=== PATIENT | female | born 1965 | race African-American/Black ===

== ENCOUNTER 2018-09-08 17:37 | Inpatient (IN) | payer OTHER ==
[2018-09-08 18:54] LABS: #Monocytes 0.8 thou/uL (0.11-0.59); #Neutrophils 6.1 thou/uL (1.40-6.50); %Basophils 0.5 % (0.0-1.0); %Eosinophils 0.5 % (0.0-10.0); %Lymphocytes 12.3 % (21.0-51.0); %Monocytes 10.4 % (0.0-10.0); %Neutrophils 76.2 % (42.0-75.0); Hemoglobin 11.9 g/dL (12.0-16.0); Mean Corpuscular HGB CONC 29.8 g/dL (32.0-36.0); Mean Corpuscular Hemoglobin 23.4 pg (27.0-31.0); Mean Corpuscular Volume 78.4 fL (78.0-98.0); Platelet Count 272 thou/uL (130-400); RBC Distribution Width 15.5 % (11.5-14.5); Red Blood Cell (RBC) Count 5.08 mill/uL (4.20-5.40)
[2018-09-08 18:56] LABS: Anisocytosis SLIGHT = 6-15 cells (100X) (0-5/hpf); MDiff Complete? YES; PLT Morphology Comment Appears Adequate; Polychromasia SLIGHT = 2-3 cells (100X) (0-2/hpf)
[2018-09-08 18:59] LABS: ALT (SGPT) 21 U/L (8-55); AST (SGOT) 21 U/L (5-34); Alkaline Phosphatase 83 U/L (40-150); Anion Gap 14 mmol/L (10-20); BUN (Urea Nitrogen) 14 mg/dL (9.8-20.1); Bilirubin, Total 0.8 mg/dL (0.2-1.2); CK (CPK) 278 U/L (29-168); Calc. Creatinine Clearance 0 mL/min (70-130); Calcium 9.3 mg/dL (7.8-10.44); Carbon Dioxide 24 mmol/L (22-29); Chloride 102 mmol/L (98-107); Estimated GFR-MDRD 63; Globulin 4.1 g/dL (2.4-3.5); Glucose 173 mg/dL (70-105); Potassium 3.8 mmol/L (3.5-5.1); Protein, Total 8.1 g/dL (6.0-8.3); Sodium 136 mmol/L (136-145)
--- NOTE | 2018-09-08 19:18 | RAD ---
PORTABLE CHEST 09/08/18 PROVIDED CLINICAL HISTORY: Cough. FINDINGS: Comparison 12/05/16. The cardiac silhouette remains markedly enlarged. The lungs appear clear. No pleural fluid or pneumot horax apparent. IMPRESSION: Marked cardiomegaly without evidence for an acute cardiopulmonary process. POS: [facility]
[2018-09-08 19:23] LABS: CKMB 3.6 ng/mL (0-6.6)
[2018-09-08] MEDS ORDERED: Nitroglycerin 0.4 MG TAB (25 Tab Bottle) ONE (19:29)
[2018-09-08] MEDS ORDERED: Nitroglycerin 2% Ointment 1 INCH/1 GM Packet ONE (19:29)
[2018-09-08] MEDS ORDERED: Enoxaparin Sodium 100 MG/ML SYRINGE ONE ×2 (20:10→20:12)
[2018-09-08 21:32] LABS: Troponin I 0.752 ng/mL (< 0.028)
[2018-09-09] MEDS ORDERED: HumaLOG 300 UNITS/3 ML VIAL SC PRN (00:26)
[2018-09-09] MEDS ORDERED: Dextrose 5% in Water 1,000 ML IV PRN (00:26)
[2018-09-09] MEDS ORDERED: Dextrose 50% Abboject 50 ML SYRINGE SLOW IVP PRN (00:26)
[2018-09-09 00:58] LABS: Troponin I 0.845 ng/mL (< 0.028)
[2018-09-09 03:45] VITALS: BMI 37.0
--- NOTE | 2018-09-09 04:16 | HP ---
CHIEF COMPLAINT: Cough. Date of encounter: 09/08/2018 HISTORY OF PRESENT ILLNESS: This patient is a 53-year-old female, who presented to the emergency department with cough. The patient reports the cough has been present for 1 week, and today for the 1st time she started experiencing some hot and cold flashes, she believes were fever and chills. She reports the cough has been productive of a thick yellow sputum. It subsequently has transformed more to a frothy white type sputum. She coughed one point so hard that she developed some epistaxis a couple of days ago. She denies any ill contacts. She does get short of breath with the cough. She has no sinus or other upper respiratory symptoms. She does admit that she has the inability to lie flat because she develops pressure in her chest. She is a bit more comfortable when she lies on her left side. REVIEW OF SYSTEMS: GENERAL: Some subjective fever and chills. She has had difficulty with sleeping and orthopnea. No significant changes in her weight. ENT: No hearing, vision, taste, or smell changes. GI: No difficulties with swallowing, constipation, diarrhea. CARDIOVASCULAR: The chest pain that she gets with orthopnea. No palpitations or peripheral edema. PULMONARY: Positive for cough, shortness of breath, and some wheezing. : No dysuria, frequency, or nocturia. She did have a little stress incontinence with cough today. SKIN: No rashes or lesions. NEUROLOGIC: No numbness, weakness, or tingling. PSYCHIATRIC: Some mild chronic anxiety and depression. ENDOCRINE: No polyuria or polydipsia. All other systems were reviewed and all pertinent positives and negatives noted in the HPI. PAST MEDICAL HISTORY: Hypertension, diabetes, hyperlipidemia, coronary artery disease, LV dysfunction, most recently evaluated in November 2016 with an EF of 40% . Anxiety and depression. PAST SURGICAL HISTORY: The patient has had prior coronary artery stenting and subsequent in-stent stenosis. Past surgical history also includes . FAMILY HISTORY: Notable for diabetes and hypertension within the family. SOCIAL HISTORY: Nonsmoker, nondrinker, nondrug user. She is . She is full code. Her or her sister would be her surrogate decision makers. ALLERGIES: NONE. CURRENT MEDICATIONS: 1. Seroquel 50 mg at bedtime. 2. Lexapro 20 mg daily. 3. Lisinopril 10 mg daily. 4. Mirtazapine 15 mg at bedtime. 5. Metoprolol 100 mg b.i.d. 6. Metformin 500 mg twice a day. 7. Atorvastatin 40 mg at bedtime. 8. Aspirin 81 mg daily. PHYSICAL EXAMINATION: VITAL SIGNS: Most recent vitals; BP 184/94, pulse 72, respirations 24, O2 saturation 97% on room air. BP has been recorded as high as 266/131 in the emergency department here. GENERAL APPEARANCE: Obese, age-appropriate female. She is in no distress. She is awake, alert, oriented, pleasant, and cooperative. HEENT: PERRL. No OP lesions. NECK: Supple. Symmetric. No lymphadenopathy, JVD, or carotid bruits. HEART: Regular rate and rhythm without murmurs, gallops, or rubs. LUNGS: Clear to auscultation bilaterally. Good chest wall expansion and air exchange. Presently, no wheezes or rales noted. ABDOMEN: Soft, nontender, and nondistended. Positive bowel sounds. No masses. No organomegaly. EXTREMITIES: Warm and dry without any evidence of edema. NEUROLOGIC: The patient appears to be grossly intact with spontaneous movement of all extremities. PSYCHIATRIC: The patient has normal affect and behavior. LABORATORY DATA: White count 8.0, hemoglobin 11.9, platelets 272. Sodium 136, potassium 3.8, chloride 102, CO2 of 24, BUN 14, creatinine 1.1, glucose 173. Lactic acid 1.2. AST is 21, ALT 21, CK 278, troponin 0.96. BNP 1634.3. Flu screen negative. Chest x-ray shows significant cardiomegaly, which by my evaluation appears to be advanced and appreciably worse than her previous x-ray in November of 2016. IMPRESSION AND PLAN: 1. Cough. The patient appears to likely have bronchitis. She has received Levaquin in the emergency department. I will continue being aggressive in treating that given her other underlying comorbidities, especially her cardiac history. 2. Elevated troponins. This likely represents type 2 demand ischemia. However, difficult to ascertain in this patient. She was here in November with some atypical chest pains, and at that time, her troponin was 0.1 range and clearly more elevated now. Concern that her chest x-ray at least shows what appears to be advanced cardiomegaly. We will pursue that as well. The patient has not had any chest pain symptoms other than some discomfort with associated orthopnea. We will not aggressively anticoagulate the patient in the setting of this scenario. 3. Cardiomyopathy. The patient has a history of some LV dysfunction with EF of 40%. She has apparent enlargement of her cardiac silhouette which is appreciably advanced from November of 2016. We will repeat the echocardiogram. The patient does not have significant pulmonary edema on her chest x-ray, although she does have some white frothy sputum production, and her BNP is elevated at 1634, which is substantially higher than it has been in the past. In November of last year, it was 322.7. We will repeat the echo and get Cardiology to evaluate the patient for this as well. 4. Hypertension. The patient had severely elevated blood pressure in the emergency department today. Again, that appears to be incidental to her actual presenting complaint of cough. She did receive 20 mg of IV labetalol in the emergency department and her blood pressure has somewhat improved. We will get her back on her usual medicines and continue to monitor and give p.r.n. to be used if it continues to climb again. The patient also has nitro paste on as well. 5. Diabetes mellitus. We will keep her on the metformin. Continue Accu-Cheks and sliding scale. 6. Hyperlipidemia. Continue with her usual home statin. 7. Anxiety and depression. Continue her usual Lexapro, citalopram, and mirtazapine. 8. History of coronary artery disease. Continue with the beta clarita and aspirin. Job ID: [id number] MTDD
[2018-09-09] MEDS: hydrALAZINE 20 MG/ML VIAL SLOW IVP PRN ×2 (05:24→06:33)
[2018-09-09 06:35] LABS: Anion Gap 13 mmol/L (10-20); BUN (Urea Nitrogen) 14 mg/dL (9.8-20.1); Calc. Creatinine Clearance 102 mL/min (70-130); Calcium 9.3 mg/dL (7.8-10.44); Carbon Dioxide 26 mmol/L (22-29); Chloride 101 mmol/L (98-107); Estimated GFR-MDRD 62; Glucose 159 mg/dL (70-105); Potassium 3.9 mmol/L (3.5-5.1); Sodium 136 mmol/L (136-145)
[2018-09-09 07:26] LABS: Band 7 % (5-11); Hypochromia SLIGHT = 6-15 cells (100X) (0-5/hpf); Lymphocytes 11 % (21-51); MDiff Complete? YES; Mean Corpuscular Volume 77.6 fL (78.0-98.0); Mean Platelet Volume 8.9 fL (7.4-10.4); Microcytosis SLIGHT = 6-15 cells (100X) (0-5/hpf); Monocytes 15 % (0-10); Neutrophil 67 % (42-75); PLT Morphology Comment Appears Adequate; Platelet Count 234 thou/uL (130-400); Polychromasia SLIGHT = 2-3 cells (100X) (0-2/hpf); RBC Distribution Width 15.3 % (11.5-14.5); Red Blood Cell (RBC) Count 4.57 mill/uL (4.20-5.40); White Blood Cell (WBC) Count 6.4 thou/uL (4.8-10.8)
[2018-09-09] MEDS: Escitalopram Oxalate 20 mg Tablet PO SCH (07:58)
[2018-09-09] MEDS ORDERED: metFORMIN 500 MG TAB PO SCH (08:00)
[2018-09-09] MEDS ORDERED: cloNIDine 0.1 MG TAB PO PRN (08:22)
[2018-09-09] MEDS ORDERED: NIFEdipine XL 30 MG TAB PO SCH (08:30)
[2018-09-09] MEDS ORDERED: Enoxaparin Sodium 120 MG/0.8 ML SYRINGE SC SCH (09:00)
[2018-09-09] MEDS ORDERED: Nitroglycerin 2% Ointment 1 INCH/1 GM Packet TOP SCH (09:00)
[2018-09-09] MEDS ORDERED: Metoprolol Tartrate 100 MG TAB PO SCH (09:00)
[2018-09-09] MEDS ORDERED: Lisinopril 10 MG TAB PO SCH (09:00)
[2018-09-09] MEDS ORDERED: Aspirin 325 mg Enteric Coated Tablet PO SCH (09:00)
[2018-09-09] MEDS ORDERED: Nitroglycerin 2% Ointment 1 INCH/1 GM Packet TOP PRN (10:52)
[2018-09-09] MEDS: Aspirin 81 mg Enteric Coated Tablet PO SCH (12:07)
[2018-09-09] MEDS ORDERED: Furosemide 20 MG/2 ML VIAL SLOW IVP SCH (18:30)
[2018-09-09] MEDS ORDERED: Carvedilol 25 MG TAB PO SCH (18:30)
[2018-09-09] MEDS ORDERED: Potassium Chloride 20 MEQ TAB PO SCH (18:30)
[2018-09-09] MEDS ORDERED: Sodium Chloride 0.9% 10 ML ONE (18:57)
[2018-09-09] MEDS: Lisinopril 10 MG TAB PO SCH (20:46)
[2018-09-09] MEDS: Mirtazapine 15 MG Soltab PO SCH ×2 (20:46→20:49)
[2018-09-09] MEDS: Atorvastatin Calcium 40 MG TAB PO SCH (20:46)
--- NOTE | 2018-09-09 21:38 | PDOC.PN ---
- Subjective Encounter Start Date: 09/09/18 Encounter Start Time: 11:30 Patient seen and examined for HTN crisis. No CP. SOB improving. No new complaints. No overnight events - Objective Resuscitation Status - Order Detail: 09/09/18 00:18 Resuscitation Status Routine Resuscitation Status: FULL: Full Resuscitation Discussed with: Patient RAMYA Reviewed: Yes Vital Signs & Weight: Vital Signs (12 hours) Temp Pulse Resp BP BP Pulse Ox 09/09/18 20:46 131/67 09/09/18 19:03 64 165/84 H 09/09/18 16:25 99.2 F 63 20 145/69 H 97 09/09/18 13:45 62 175/79 H 09/09/18 12:35 180/92 H 09/09/18 12:05 183/111 H 09/09/18 12:01 99.0 F 66 20 183/111 H 100 09/09/18 10:00 150/70 H Weight Weight 243 lb 8 oz I&O: 09/08/18 09/09/18 09/10/18 06:59 06:59 06:59 Intake Total 480 Output Total 1700 Balance -1220 Result Diagrams: 09/10/18 05:11 09/10/18 05:11 Additional Labs: Accuchecks 09/09/18 09/09/18 09/09/18 16:50 11:34 06:02 POC Glucose 160 H 213 H 156 H EKG Reviewed by me: Yes (Tele SR) Phys Exam - Physical Examination Constitutional: NAD Respiratory: no wheezing, no rhonchi bibasilar rales Cardiovascular: RRR, no rub Gastrointestinal: soft, non-tender, positive bowel sounds Neurological: non-focal, moves all 4 limbs Psychiatric: A&O x 3 Dx/Plan (1) Acute on chronic systolic ACC/AHA stage C congestive heart failure Code(s): I50.23 - ACUTE ON CHRONIC SYSTOLIC (CONGESTIVE) HEART FAILURE Status : Acute (2) Acute bronchitis Code(s): J20.9 - ACUTE BRONCHITIS, UNSPECIFIED Status: Acute (3) Hypertensive crisis Code(s): I16.9 - HYPERTENSIVE CRISIS, UNSPECIFIED Status: Acute (4) Coronary artery disease Code(s): I25.10 - ATHSCL HEART DISEASE OF [place] CORONARY ARTERY W/O ANG PCTRS Status: Chronic (5) Dyslipidemia Code(s): E78.5 - HYPERLIPIDEMIA, UNSPECIFIED Status: Chronic (6) Obesity (BMI 30-39.9) Code(s): E66.9 - OBESITY, UNSPECIFIED Status: Chronic (7) Elevated troponin Code(s): R74.8 - ABNORMAL LEVELS OF OTHER SERUM ENZYMES Status: Acute Comment: due to demand ischemia (8) Depression Code(s): F32.9 - MAJOR DEPRESSIVE DISORDER, SINGLE EPISODE, UNSPECIFIED Status : Chronic (9) DM2 (diabetes mellitus, type 2) Status: Chronic Qualifiers: Chronic kidney disease stage: stage 2 (mild) - Plan continue antibiotics, respiratory therapy, DVT proph w/SCDs * Await Cardio input * Add Procardia XL * Cont Lisinopril * AM labs * Cont other meds as below * Await Echo Review of Systems - Review of Systems Constitutional: negative: fever, chills, sweats, weakness, malaise, other Gastrointestinal: negative: Nausea, Vomiting, Abdominal Pain, Diarrhea, Constipation, Melena, Hematochezia, Other - Medications/Allergies Allergies/Adverse Reactions: Allergies Allergy/AdvReac Type Severity Reaction Status Date / Time No Known Allergies Allergy Verified 12/01/16 02:12 Medications: Current Medications Albuterol/Ipratropium (Duoneb) 3 ml NEB Q4H PRN PRN Reason: SOB &/or Wheezing Aspirin (Ecotrin) 81 mg PO DAILY [facility] Last Admin: 09/09/18 12:07 Dose: 81 mg Atorvastatin Calcium (Lipitor) 40 mg PO HS [facility] Last Admin: 09/09/18 20:46 Dose: 40 mg Carvedilol (Coreg) 25 mg PO BID-[facility] Clonidine (Catapres) 0.1 mg PO Q4H PRN PRN Reason: Systolic BP > 180/ DBP >100 Last Admin: 09/09/18 12:05 Dose: 0.1 mg Dextrose/Water (Dextrose 50%) 25 gm SLOW IVP PRN PRN PRN Reason: Hypoglycemia Enoxaparin Sodium (Lovenox) 40 mg SC 0900 [facility] Escitalopram Oxalate (Lexapro) 20 mg PO DAILY [facility] Last Admin: 09/09/18 07:58 Dose: 20 mg Glucagon (Glucagon) 1 mg IM PRN PRN PRN Reason: Hypoglycemia Hydralazine HCl (Apresoline) 10 mg SLOW IVP Q4H PRN PRN Reason: Hypertension Last Admin: 09/09/18 06:33 Dose: 10 mg Levofloxacin 500 mg/ Device 100 mls @ 100 mls/hr IVPB Q24HR [facility] Last Admin: 09/09/18 20:10 Dose: 100 mls Dextrose/Water (D5w) 1,000 mls @ 0 mls/hr IV .Q0M PRN PRN Reason: Hypoglycemia Insulin Human Lispro (Humalog) 0 units SC .MILD SLIDING SCALE PRN PRN Reason: Mild Correctional Scale Lisinopril (Zestril) 10 mg PO BID [facility] Last Admin: 09/09/18 20:46 Dose: 10 mg Mirtazapine (Remeron Soltab) 15 mg PO [facility] Last Admin: 09/09/18 20:49 Dose: Not Given Nitroglycerin (Nitro-Bid 2% Ointment) 0.5 inch TOP Q8HR PRN PRN Reason: SBP Greater Than 180 Quetiapine Fumarate (Seroquel) 50 mg PO [facility] Last Admin: 09/09/18 20:46 Dose: 50 mg
--- NOTE | 2018-09-10 02:39 | CON ---
DATE OF CONSULTATION: 09/09/2018 TYPE OF CONSULTATION: Cardiology. REASON FOR CONSULTATION: Hypertension, emergency; congestive heart failure, probably diastolic; acute on chronic coronary artery disease. HISTORY OF PRESENT ILLNESS: Ms. Glendy Banegas is a very pleasant 53-year-old woman who receives her cardiac care primarily at [facility] in clinic. She presented to the hospital with cough. She did not have chest pain or pressure. It is noted that she had severe hypertension in the emergency room, also noted that she had slight increase in troponin levels. She has been admitted for further therapy. PAST MEDICAL HISTORY: She has a history of coronary artery disease with stent implantation in diagonal branches at [facility]. She underwent cardiac catheterization in November 2016, and was found to have a stent in the first diagonal branch with distal stenosis. No other significant disease. Her ejection fraction is 40% with a dilated left ventricle. The patient was to follow up with the [facility] physicians, I am not sure if she has done that. MEDICATIONS: 1. Aspirin. 2. Atorvastatin. 3. Lisinopril 10 mg once a day. 4. Metoprolol 100 mg twice a day, tartrate. 5. Metformin. ALLERGIES: NONE KNOWN. SOCIAL HISTORY: No alcohol or tobacco. She has a supportive family in the room. REVIEW OF SYSTEMS: CONSTITUTIONAL: No significant weight gain or loss. VISION: No changes. HEARING: No changes. PULMONARY: Positive for cough. No wheezing. CARDIAC: No chest pain. GASTROINTESTINAL: No nausea, vomiting or diarrhea. SKIN: No rashes. PHYSICAL EXAMINATION: GENERAL: This is a pleasant 53-year-old woman in no distress. VITAL SIGNS: Blood pressure has been high today 180/92, pulse 60. HEENT: Eyes, sclerae nonicteric. Mouth, mucous membranes moist. NECK: Supple. No lymphadenopathy. LUNGS: Clear. No wheezing, rales or rhonchi. CARDIAC: Normal S1, normal S2. There is no murmur, rub or gallop. ABDOMEN: Soft, nontender. EXTREMITIES: No clubbing or cyanosis. There is no significant edema. PERTINENT LABORATORY DATA: Troponin peak 0.845. BUN is 14, creatinine 1.12, potassium 3.9. Chest x-ray shows cardiomegaly without evidence of heart failure. ASSESSMENT: 1. Congestive heart failure. Looking at the previous records, she did have systolic dysfunction. This may be systolic, acute on chronic. 2. Coronary artery disease, mild. 3. Hypertension, uncontrolled with blood pressures in the emergency room extremely high, as high as 266/130. PLAN: 1. Change from metoprolol to carvedilol. 2. Increase GARO inhibitors. 3. Give her a diuretic. 4. Echocardiogram is pending. 5. Reduce enoxaparin. 6. Continue aspirin. 7. Continue statins. We will continue to follow with you. The patient needs better followup. We will encourage her to see her physicians at [facility]. Job ID: [id number]
[2018-09-10 05:57] LABS: Calcium 9.4 mg/dL (7.8-10.44); Chloride 101 mmol/L (98-107); Potassium 4.4 mmol/L (3.5-5.1); Sodium 133 mmol/L (136-145)
[2018-09-10 05:58] LABS: Glucose 123 mg/dL (70-105)
[2018-09-10 05:59] LABS: Anion Gap 16 mmol/L (10-20); Carbon Dioxide 20 mmol/L (22-29)
[2018-09-10 06:00] LABS: Band 5 % (5-11); Hemoglobin 11.6 g/dL (12.0-16.0); Lymphocytes 13 % (21-51); MDiff Complete? YES; Mean Corpuscular HGB CONC 30.8 g/dL (32.0-36.0); Mean Corpuscular Hemoglobin 24.1 pg (27.0-31.0); Mean Corpuscular Volume 78.4 fL (78.0-98.0); Monocytes 19 % (0-10); Neutrophil 63 % (42-75); PLT Morphology Comment Appears Decreased; Platelet Count 114 thou/uL (130-400); RBC Distribution Width 15.7 % (11.5-14.5); Red Blood Cell (RBC) Count 4.81 mill/uL (4.20-5.40); White Blood Cell (WBC) Count 3.8 thou/uL (4.8-10.8)
[2018-09-10 06:01] LABS: Calc. Creatinine Clearance 103 mL/min (70-130); Estimated GFR-MDRD 62
[2018-09-10 06:02] LABS: BUN (Urea Nitrogen) 19 mg/dL (9.8-20.1)
[2018-09-10 06:08] LABS: Critical Call Chem Troponin I RESULT DECREASING
[2018-09-10 06:26] LABS: CKMB 3.1 ng/mL (0-6.6)
[2018-09-10] MEDS ORDERED: Potassium Chloride 20 MEQ TAB PO SCH (07:30)
[2018-09-10] MEDS ORDERED: Furosemide 40 MG/4 ML VIAL SLOW IVP SCH (07:30)
[2018-09-10] MEDS ORDERED: Carvedilol 25 MG TAB PO SCH ×4 (08:00→09:45)
[2018-09-10] MEDS: Aspirin 81 mg Enteric Coated Tablet PO SCH (08:39)
[2018-09-10] MEDS: Lisinopril 10 MG TAB PO SCH ×2 (08:39→20:48)
[2018-09-10] MEDS: Escitalopram Oxalate 20 mg Tablet PO SCH (08:41)
[2018-09-10] MEDS ORDERED: Enoxaparin Sodium 40 MG/0.4 ML SYRINGE SC SCH (09:00)
[2018-09-10] MEDS: Carvedilol 25 MG TAB PO SCH (18:30)
[2018-09-10] MEDS: Mirtazapine 15 MG Soltab PO SCH (20:48)
[2018-09-10] MEDS: Atorvastatin Calcium 40 MG TAB PO SCH (20:48)
--- NOTE | 2018-09-10 23:59 | PRG ---
DATE OF SERVICE: 09/10/2018 SUBJECTIVE: The patient symptomatically feels better. Denies any chest pain, shortness of breath, palpitations, or syncope. REVIEW OF SYSTEMS: No nausea, vomiting, fever, chills, or focal neurologic deficit reported. PHYSICAL EXAMINATION: VITAL SIGNS: Temperature 97.9, pulse rate of 61, respiration 18, and O2 saturation 95% on room air, blood pressure 140/74. CURRENT MEDICATIONS: Current medications were reviewed. Carvedilol dose has been increased. She is also on: 1. Levaquin. 2. Lipitor. 3. Aspirin. 4. Lasix. 5. Lisinopril. 6. Remeron. PHYSICAL EXAMINATION: GENERAL: A 53-year-old female, in no apparent distress. LUNGS: Showed scattered rales at bases. HEART: S1 and S2 present. Regular rate and rhythm. ABDOMEN: Soft. Bowel sounds present. EXTREMITIES: No edema or calf tenderness. NEUROLOGY: Grossly nonfocal. LABORATORY FINDINGS: WBC 3.8 with hemoglobin 11.6, platelet 114. Chemistry showed sodium 133, potassium 4.4, chloride 101, bicarb 20, BUN 19, and creatinine 1.1. Troponin 0.4. Blood cultures negative. Influenza testing negative. Echocardiogram showed left ventricular ejection fraction of 40% to 45% with mild concentric left ventricular hypertrophy. Telemetry monitoring by my review showed sinus rhythm. IMPRESSION: 1. [id number] systolic heart failure exacerbation, improving. 2. Acute bronchitis, improving with Levaquin. 3. Hypertensive crisis. 4. Coronary artery disease. 5. Dyslipidemia. 6. Obesity with the BMI of 37. 7. Elevated troponin, secondary to demand ischemia. 8. Depression without any suicidal ideation. 9. Diabetes mellitus type 2. 10. Thrombocytopenia. 11. Hyponatremia. 12. Chronic kidney disease, stage 2. PLAN: We will change Levaquin to p.o. We will continue aspirin and Lipitor. Carvedilol dose has been increased to 50 mg twice a day. We will hold Lovenox due to significant thrombocytopenia. We will recheck CBC in a.m. Low-dose Lasix has been started. We will continue GARO inhibitor. The patient was counseled to be compliant with fluid restriction. We will continue cardiac rehab. DISPOSITION: Probably in 1 to 2 days once cleared by Cardiology. Job ID: [id number]
[2018-09-11 05:34] LABS: Anion Gap 13 mmol/L (10-20); BUN (Urea Nitrogen) 28 mg/dL (9.8-20.1); Calc. Creatinine Clearance 88 mL/min (70-130); Calcium 9.1 mg/dL (7.8-10.44); Carbon Dioxide 27 mmol/L (22-29); Chloride 100 mmol/L (98-107); Estimated GFR-MDRD 52; Glucose 111 mg/dL (70-105); Potassium 3.9 mmol/L (3.5-5.1); Sodium 136 mmol/L (136-145)
[2018-09-11 06:54] LABS: Band 4 % (5-11); Hypochromia SLIGHT = 6-15 cells (100X) (0-5/hpf); Lymphocytes 19 % (21-51); MDiff Complete? YES; Mean Corpuscular HGB CONC 31.1 g/dL (32.0-36.0); Mean Corpuscular Hemoglobin 23.9 pg (27.0-31.0); Mean Platelet Volume 9.2 fL (7.4-10.4); Monocytes 24 % (0-10); Neutrophil 53 % (42-75); Platelet Count 218 thou/uL (130-400); RBC Distribution Width 15.3 % (11.5-14.5); Red Blood Cell (RBC) Count 4.59 mill/uL (4.20-5.40); White Blood Cell (WBC) Count 3.9 thou/uL (4.8-10.8)
[2018-09-11] MEDS: Lisinopril 10 MG TAB PO SCH ×2 (08:19→21:45)
[2018-09-11] MEDS: Furosemide 20 MG TAB PO SCH (08:19)
[2018-09-11] MEDS: Aspirin 81 mg Enteric Coated Tablet PO SCH (08:19)
[2018-09-11] MEDS: Escitalopram Oxalate 20 mg Tablet PO SCH (08:19)
[2018-09-11] MEDS: Carvedilol 25 MG TAB PO SCH ×2 (08:20→17:19)
--- NOTE | 2018-09-11 10:44 | RAD ---
2 VIEWS CHEST: Date: 09/11/18 COMPARISON: 09/08/18. HISTORY: Fever and shortness of breath. FINDINGS: Cardiac silhouette is enlarged. No pneumothorax or pleural fluid. Mild pulmonary vascular congestion. No lobar consolidation or alveolar edema. IMPRESSION: Pulmonary vascular congestion and enlarged cardiac silhouette. POS: [facility]
--- NOTE | 2018-09-11 12:56 | PRG ---
DATE OF SERVICE: 09/11/2018 SUBJECTIVE: The patient denies any chest discomfort at this time. She continues to have some cough, which is essentially dry. She felt feverish, however, denies any chills. No nausea, vomiting, diarrhea, dysuria, hematuria, or urgency reported. REVIEW OF SYSTEMS: As discussed above. OBJECTIVE: VITAL SIGNS: T-max 100.8 with pulse rate 57, blood pressure 146/79, respirations of 16, and O2 saturation 96% on room air. Intake of 1170 and output 1150. GENERAL: A 53-year-old female, in no apparent distress. LUNGS: Showed bilateral rhonchi with scattered rales. No significant wheezing appreciated. HEART: S1 and S2 present. Regular rate and rhythm. No rubs or gallops. ABDOMEN: Soft and nontender. Bowel sounds present. EXTREMITIES: No edema or calf tenderness. NEUROLOGY: Grossly nonfocal. CURRENT MEDICATIONS: Current medications were reviewed. The patient is currently on; 1. Lisinopril. 2. Lexapro. 3. Seroquel. 4. Carvedilol. 5. Lipitor. 6. Lasix. 7. Aspirin. 8. Levaquin. LABORATORY DATA: Blood cultures, negative. Lab findings: WBC 3.9 with hemoglobin 11, hematocrit 35.3, and platelet of 218. Chemistry showed sodium 136, potassium 3.9, chloride 100, bicarb 27, BUN 28, and creatinine 1.31. Troponin yesterday was 0.46. Telemetry monitoring by my review showed sinus rhythm. IMPRESSION AND PLAN: 1. Acute on chronic systolic heart failure exacerbation. Improving. We will continue oral Lasix along with beta-blockers and GARO inhibitor. The patient is currently on 1500 fluid restriction. 2. Elevated troponin secondary to demand ischemia. The patient is already on aspirin. 3. Acute bronchitis with low-grade fever. We will repeat chest x-ray today to rule out pneumonia. Levaquin will be continued. 4. Coronary artery disease. Plan as discussed above. 5. Hypertensive crisis. Her blood pressure is improving. We will continue current antihypertensives. 6. Obesity with a BMI of 37. Lifestyle modification emphasized. 7. Dyslipidemia. We will continue statins. 8. Depression. The patient denies any suicidal ideation. 9. Diabetes mellitus, type 2. We will continue sliding scale. 10. Thrombocytopenia, resolved. Lovenox for DVT prophylaxis will be resumed tonight. 11. Hyponatremia. Her sodium has improved to 136 today. 12. Chronic kidney disease, stage 2. Plan was discussed with the patient and the family at the bedside. They stated understanding. Job ID: [id number]
[2018-09-11] MEDS: Atorvastatin Calcium 40 MG TAB PO SCH (21:45)
[2018-09-11] MEDS: Enoxaparin Sodium 40 MG/0.4 ML SYRINGE SC SCH (21:46)
[2018-09-12] MEDS: Lisinopril 10 MG TAB PO SCH ×2 (08:40→20:29)
[2018-09-12] MEDS: Escitalopram Oxalate 20 mg Tablet PO SCH (08:40)
[2018-09-12] MEDS: Furosemide 20 MG TAB PO SCH (08:40)
[2018-09-12] MEDS: Aspirin 81 mg Enteric Coated Tablet PO SCH (08:40)
[2018-09-12] MEDS: Carvedilol 25 MG TAB PO SCH ×2 (08:43→17:14)
[2018-09-12] MEDS: Cefdinir 300 MG CAP PO SCH ×2 (10:29→20:28)
--- NOTE | 2018-09-12 10:38 | ULT ---
BILATERAL LOWER EXTREMITY VENOUS DOPPLER ULTRASOUND: Date: 09/12/18 HISTORY: Bilateral lower extremity edema. TECHNIQUE: Reid scale ultrasound with color flow and spectral Doppler imaging of the deep venous systems of the lower extremities was performed bilaterally. FINDINGS: There is good flow, compression, and augmentation noted in the common femoral, femoral, deep femoral, popliteal, posterior tibial, and greater saphenous veins on either side. IMPRESSION: No evidence of deep venous thrombosis in either lower extremity. POS: [facility]
--- NOTE | 2018-09-12 12:43 | PDOC.PN ---
- Subjective Encounter Start Date: 09/12/18 Encounter Start Time: 09:30 Patient seen and examined for CHF/Bronchitis. Feels the same. No new complaints. No overnight events - Objective Resuscitation Status - Order Detail: 09/09/18 00:18 Resuscitation Status Routine Resuscitation Status: FULL: Full Resuscitation Discussed with: Patient RAMYA Reviewed: Yes Vital Signs & Weight: Vital Signs (12 hours) Temp Pulse Resp BP BP Pulse Ox 09/12/18 08:40 147/68 H 09/12/18 08:00 98.2 F 55 L 16 147/68 H 95 09/12/18 05:30 100 F H 55 L 18 96 Weight Weight 230 lb 3.2 oz I&O: 09/11/18 09/12/18 09/13/18 06:59 06:59 06:59 Intake Total 1170 900 240 Output Total 1150 1100 Balance 20 -200 240 Result Diagrams: 09/13/18 05:09 09/13/18 05:09 Additional Labs: Accuchecks 09/12/18 09/12/18 09/11/18 10:41 06:17 16:46 POC Glucose 110 82 132 H Phys Exam - Physical Examination Constitutional: NAD Respiratory: no wheezing Scat rhonchi with few rales at bases Cardiovascular: RRR, no rub Gastrointestinal: soft, non-tender, no distention, positive bowel sounds Musculoskeletal: edema present Neurological: moves all 4 limbs Dx/Plan - Plan IMPRESSION: 1. Acute on chronic systolic heart failure exacerbation. 2. Elevated troponin secondary to demand ischemia. 3. Acute bronchitis with low-grade fever. Repeat chest x-ray negative. 4. Coronary artery disease. 5. Hypertensive crisis. 6. Obesity with a BMI of 37. 7. Dyslipidemia. 8. Depression. 9. Diabetes mellitus, type 2. 10. Thrombocytopenia, resolved. 11. Hyponatremia. 12. Chronic kidney disease, stage 2. PLAN: Patient cont to have low grade fever - Will r/o DVT. Also consult ID and add Omnicef. Continue oral Lasix/beta-blockers/GARO inhibitor. Cont fluid restriction. Continue sliding scale Cont ASA Cont other meds as below AM labs including CRP. Review of Systems - Review of Systems Respiratory: negative: Cough, Dry, Shortness of Breath, Hemoptysis, SOB with Excertion, Pleuritic Pain, Sputum, Wheezing Cardiovascular: negative: chest pain, palpitations, orthopnea, paroxysmal nocturnal dyspnea, edema, light headedness, other - Medications/Allergies Allergies/Adverse Reactions: Allergies Allergy/AdvReac Type Severity Reaction Status Date / Time No Known Allergies Allergy Verified 12/01/16 02:12 Medications: Current Medications Albuterol/Ipratropium (Duoneb) 3 ml NEB Q4H PRN PRN Reason: SOB &/or Wheezing Last Admin: 09/11/18 16:06 Dose: 3 ml Aspirin (Ecotrin) 81 mg PO DAILY [facility] Last Admin: 09/12/18 08:40 Dose: 81 mg Atorvastatin Calcium (Lipitor) 40 mg PO HS [facility] Last Admin: 09/11/18 21:45 Dose: 40 mg Carvedilol (Coreg) 50 mg PO BID-[facility] Last Admin: 09/12/18 08:43 Dose: Not Given Cefdinir (Omnicef) 300 mg PO BID [facility] Last Admin: 09/12/18 10:29 Dose: 300 mg Clonidine (Catapres) 0.1 mg PO Q4H PRN PRN Reason: Systolic BP > 180/ DBP >100 Last Admin: 09/09/18 12:05 Dose: 0.1 mg Dextrose/Water (Dextrose 50%) 25 gm SLOW IVP PRN PRN PRN Reason: Hypoglycemia Enoxaparin Sodium (Lovenox) 40 mg SC 2100 [facility] Last Admin: 09/11/18 21:46 Dose: 40 mg Escitalopram Oxalate (Lexapro) 20 mg PO DAILY [facility] Last Admin: 09/12/18 08:40 Dose: 20 mg Furosemide (Lasix) 20 mg PO DAILY [facility] Last Admin: 09/12/18 08:40 Dose: 20 mg Glucagon (Glucagon) 1 mg IM PRN PRN PRN Reason: Hypoglycemia Hydralazine HCl (Apresoline) 10 mg SLOW IVP Q4H PRN PRN Reason: Hypertension Last Admin: 09/09/18 06:33 Dose: 10 mg Dextrose/Water (D5w) 1,000 mls @ 0 mls/hr IV .Q0M PRN PRN Reason: Hypoglycemia Insulin Human Lispro (Humalog) 0 units SC .MILD SLIDING SCALE PRN PRN Reason: Mild Correctional Scale Levofloxacin (Levaquin) 500 mg PO 0600 [facility] Last Admin: 09/12/18 06:14 Dose: 500 mg Lisinopril (Zestril) 10 mg PO BID [facility] Last Admin: 09/12/18 08:40 Dose: 10 mg Quetiapine Fumarate (Seroquel) 50 mg PO HS [facility] Last Admin: 09/11/18 21:46 Dose: 50 mg Sodium Chloride (Flush - Normal Saline) 10 ml IVF Q12HR [facility] Last Admin: 09/12/18 08:41 Dose: 10 ml Sodium Chloride (Flush - Normal Saline) 10 ml IVF PRN PRN PRN Reason: Saline Flush
[2018-09-12] MEDS: Atorvastatin Calcium 40 MG TAB PO SCH (20:28)
[2018-09-12] MEDS: Enoxaparin Sodium 40 MG/0.4 ML SYRINGE SC SCH (20:29)
[2018-09-12 22:58] LABS: Bilirubin Negative (Negative); Blood, Urine Large (Negative); Clarity CLEAR (Clear); Glucose, Urine (Dipstick) Negative (Negative); Leukocyte Negative (Negative); Nitrite Negative (Negative); Protein, Urine (Dipstick) 100 mg/dL (Neg-Trace)
[2018-09-12 22:59] LABS: Bacteria/HPF None Seen HPF (None Seen); Hyaline Casts/LPF 0-3 HYALINE CAST LPF (0-3 Hyaline); Pathc Cast-AUWi Flag 0.29 (0-2.49); RBC/HPF GREATER THAN 50-TNTC HPF (0-3); Squamous Epithelial None Seen HPF (0-3); WBC/HPF 0-3 HPF (0-3)
[2018-09-12 23:58] LABS: Hemoglobin 11.5 g/dL (12.0-16.0); Platelet Count 216 thou/uL (130-400)
[2018-09-13 05:44] LABS: ALT (SGPT) 17 U/L (8-55); AST (SGOT) 26 U/L (5-34); Albumin 3.4 g/dL (3.5-5.0); Alkaline Phosphatase 57 U/L (40-150); Anion Gap 13 mmol/L (10-20); BUN (Urea Nitrogen) 26 mg/dL (9.8-20.1); Bilirubin, Total 0.6 mg/dL (0.2-1.2); CRP (Inflammatory) 1.83 mg/dL (= or < 0.5); Calc. Creatinine Clearance 84 mL/min (70-130); Calcium 8.8 mg/dL (7.8-10.44); Carbon Dioxide 25 mmol/L (22-29); Chloride 103 mmol/L (98-107); Estimated GFR-MDRD 53; Globulin 3.9 g/dL (2.4-3.5); Glucose 92 mg/dL (70-105); Potassium 3.5 mmol/L (3.5-5.1); Protein, Total 7.3 g/dL (6.0-8.3); Sodium 137 mmol/L (136-145)
[2018-09-13 06:05] LABS: Band 5 % (5-11); Hemoglobin 11.6 g/dL (12.0-16.0); Lymphocytes 32 % (21-51); MDiff Complete? YES; Mean Corpuscular HGB CONC 30.3 g/dL (32.0-36.0); Mean Corpuscular Hemoglobin 23.5 pg (27.0-31.0); Mean Corpuscular Volume 77.6 fL (78.0-98.0); Mean Platelet Volume 9.2 fL (7.4-10.4); Monocytes 13 % (0-10); Neutrophil 48 % (42-75); Platelet Count 216 thou/uL (130-400); RBC Distribution Width 14.9 % (11.5-14.5); Reactive Lymphocytes 2 % (0-10); Red Blood Cell (RBC) Count 4.92 mill/uL (4.20-5.40); White Blood Cell (WBC) Count 4.3 thou/uL (4.8-10.8)
[2018-09-13] MEDS: Carvedilol 25 MG TAB PO SCH (09:12)
[2018-09-13] MEDS: Furosemide 20 MG TAB PO SCH (09:13)
[2018-09-13] MEDS: Escitalopram Oxalate 20 mg Tablet PO SCH (09:13)
[2018-09-13] MEDS: Cefdinir 300 MG CAP PO SCH (09:14)
[2018-09-13] MEDS: Aspirin 81 mg Enteric Coated Tablet PO SCH (09:14)
[2018-09-13] MEDS: Lisinopril 10 MG TAB PO SCH ×2 (09:14→21:01)
[2018-09-13] MEDS ORDERED: Spironolactone 25 MG TAB PO SCH (10:00)
[2018-09-13] MEDS ORDERED: Carvedilol 25 MG TAB PO SCH (17:00)
--- NOTE | 2018-09-13 19:28 | CON ---
DATE OF CONSULTATION: 09/13/2018 REASON FOR CONSULTATION: Cough, fever. HISTORY OF PRESENT ILLNESS: A 53-year-old who has a history of type 2 diabetes, coronary artery disease, and bipolar disorder, brought in on September 09 with a history of cough for the past week before admission, and fever and chills. She had some yellowish sputum production and then more of whitish sputum production. She had some epistaxis, had some dyspnea. Initial findings included BP 184/94, pulse 72, respirations 24, and O2 saturation 97%. The BP was as high as 260/130 in the emergency room. Initial findings included a supple neck. No JVD. Heart exam was regular, normal. Lungs are clear to auscultation. Abdomen is soft, nontender, distended. White cell count is 8.0, hemoglobin 11.9, platelets 272 with sodium 136, creatinine 1.1. BNP was 1600. Chest x-ray with cardiomegaly. Initial impression was cough, probably bronchitis, demand ischemia, poorly-controlled hypertension, and cardiomyopathy. The cultures thus far have been negative. Her white cell count is 8000 with 76% neutrophils and platelet count 272, and white cell count is decreased to 4.3 with a normalization of the differential with monocytosis. The chemistry initially was remarkable for glucose 173, normal renal function and globulin 4.1. Now the creatinine is at 1.29 and GFR is little bit lower than before, probably from decrease in blood pressure with treatment. CRP was 1.83. Urinalysis with 0 to 3 wbc's, greater than 50 rbc's, protein 100. We had a venogram, which did not show any evidence of DVT. The patient has been given aspirin, cefdinir, clonidine, escitalopram, insulin, lisinopril, spironolactone. Currently, Ms. Banegas is very drowsy. She can barely remain awake. When she wakes up, she makes sense and disoriented, but immediately falls asleep. It was hard to conduct an interview because of that. She denied any headaches. No visual symptoms, sore throat, odynophagia, or dysphagia. Still with cough, which is bothering her intermittently. No chest pain. No diarrhea. No genitourinary symptoms. No joint symptoms. PAST MEDICAL HISTORY: Includes type 2 diabetes, coronary artery disease with EF 40%, some element of ischemic cardiomyopathy, bipolar disorder, and hypertension. SURGICAL HISTORY: Coronary stenting, C section. FAMILY HISTORY: Diabetes and hypertension. SOCIAL HISTORY: Never smoker. . ALLERGIES: NONE. CURRENT MEDICATIONS: 1. Insulin. 2. Levofloxacin. 3. Lisinopril. 4. Quetiapine. 5. Spironolactone. 6. Sodium chloride. 7. Furosemide. 8. Clonidine. 9. Catapres. 10. Cefdinir. ALLERGIES: NO KNOWN DRUG ALLERGY HISTORY. PHYSICAL EXAMINATION: VITAL SIGNS: With a T-max 100.8 two days ago, BP 160/78, pulse of 54, respirations 16, and O2 saturation 97%. SKIN: Not remarkable. : She has a peripheral IV access and she is urinating in the toilet. HEENT: Ocular movements conjugate. Sclerae white. Pupils are equal. Oral cavity moist. Teeth are in fairly decent shape. NECK: Supple. No jugular vein distention. No lymphadenopathy. LUNGS: With symmetric air entry. HEART: S1 and S2, regular rate. No S3, S4. ABDOMEN: Soft. Not distended or tender. No ascites. No bladder distention. MUSCULOSKELETAL: No joint inflammatory activity. Pulses 1+ in dorsalis pedis. She is able to move all extremities equally. NEUROLOGIC: She is very drowsy again as noted above and falls asleep after just a few seconds of me waking her up to ask her questions, but she makes sense when she is awake and she seems to be oriented. LABORATORY DATA: White cell count now 4.3, hemoglobin 11.6, MCV 77, platelets 216 with a normal differential. Sodium 137, creatinine 1.29 with normal liver profile. Albumin 3.4. The cultures are all negative. Influenza A and B negative and the chest x-ray with congestion. ASSESSMENT: 1. Cardiomyopathy, ischemic. 2. Poorly-controlled hypertension. 3. Cough with some yellow sputum, but now mostly frothy white sputum. 4. Pulmonary congestion. 5. Low-grade temp elevation. DISCUSSION: Differential diagnosis includes viral bronchitis versus decompensated CHF/cardiomyopathy from poorly-controlled hypertension. Thromboembolism would be another concern, but it appears to be less likely. We will discontinue antimicrobial therapy. Check respiratory virus PCR panel and I would advise to changing her psychotropic medications to see if she can improve her state of alertness. Job ID: [id number]
--- NOTE | 2018-09-13 19:59 | PDOC.PN ---
- Subjective Encounter Start Date: 09/13/18 Encounter Start Time: 10:00 Patient seen and examined for CHF/Bronchitis. Somnolent. No new complaints. No overnight events - Objective Resuscitation Status - Order Detail: 09/09/18 00:18 Resuscitation Status Routine Resuscitation Status: FULL: Full Resuscitation Discussed with: Patient RAMYA Reviewed: Yes Vital Signs & Weight: Vital Signs (12 hours) Temp Pulse Resp BP BP Pulse Ox 09/13/18 19:05 98.3 F 51 L 20 127/60 97 09/13/18 17:07 54 L 171/84 H 09/13/18 15:00 99.2 F 54 L 16 169/78 H 97 09/13/18 09:14 161/82 H Weight Weight 229 lb 9.6 oz I&O: 09/12/18 09/13/18 09/14/18 06:59 06:59 06:59 Intake Total 900 720 240 Output Total 1100 350 300 Balance -200 370 -60 Result Diagrams: 09/13/18 05:09 09/13/18 05:09 Additional Labs: Accuchecks 09/13/18 09/13/18 09/13/18 16:01 10:41 05:48 POC Glucose 111 H 89 89 09/12/18 20:24 POC Glucose 136 H EKG Reviewed by me: Yes (Tele SB) Phys Exam - Physical Examination Constitutional: NAD Respiratory: no wheezing, no rales Scat rhonchi b/l Cardiovascular: RRR, no rub Gastrointestinal: soft, non-tender, positive bowel sounds Musculoskeletal: no edema Neurological: moves all 4 limbs Dx/Plan - Plan DVT proph w/lovenox, DVT proph w/SCDs 1. Acute on chronic systolic heart failure exacerbation. improving 2. Elevated troponin secondary to demand ischemia. 3. Acute bronchitis with low-grade fever. ?viral 4. Coronary artery disease. 5. Hypertensive crisis. 6. Obesity with a BMI of 37. 7. Dyslipidemia. 8. Depression. 9. Diabetes mellitus, type 2. 10. Thrombocytopenia, resolved. 11. Hyponatremia. 12. Chronic kidney disease, stage 2. PLAN: Cont Atbx Continue oral Lasix/GARO inhibitor. Beta-clarita dose reduced due to bradycardia Cont fluid restriction. Continue sliding scale Cont other meds as below Await ID input due to persistent fever. Hold Seroquel due to increased somnolence. Review of Systems - Review of Systems Respiratory: Cough, Dry. negative: Shortness of Breath, Hemoptysis, SOB with Excertion, Pleuritic Pain, Sputum, Wheezing Cardiovascular: negative: chest pain, palpitations, orthopnea, paroxysmal nocturnal dyspnea, edema, light headedness, other Gastrointestinal: negative: Nausea, Vomiting, Abdominal Pain, Diarrhea, Constipation, Melena, Hematochezia, Other - Medications/Allergies Allergies/Adverse Reactions: Allergies Allergy/AdvReac Type Severity Reaction Status Date / Time No Known Allergies Allergy Verified 12/01/16 02:12 Medications: Current Medications Albuterol/Ipratropium (Duoneb) 3 ml NEB Q4H PRN PRN Reason: SOB &/or Wheezing Last Admin: 09/11/18 16:06 Dose: 3 ml Aspirin (Ecotrin) 81 mg PO DAILY [facility] Last Admin: 09/13/18 09:14 Dose: 81 mg Atorvastatin Calcium (Lipitor) 40 mg PO [facility] Last Admin: 09/12/18 20:28 Dose: 40 mg [facility] ([facility]g) [facility] Clonidine (Catapres) 0.1 mg PO Q4H PRN PRN Reason: Systolic BP > 180/ DBP >100 Last Admin: 09/09/18 12:05 Dose: 0.1 mg Dextrose/Water (Dextrose 50%) 25 gm SLOW IVP PRN PRN PRN Reason: Hypoglycemia Enoxaparin Sodium (Lovenox) 40 mg SC 2100 [facility] Last Admin: 09/12/18 20:29 Dose: 40 mg Escitalopram Oxalate (Lexapro) 20 mg PO DAILY [facility] Last Admin: 09/13/18 09:13 Dose: 20 mg Furosemide (Lasix) 20 mg PO DAILY [facility] Last Admin: 09/13/18 09:13 Dose: 20 mg Glucagon (Glucagon) 1 mg IM PRN PRN PRN Reason: Hypoglycemia Hydralazine HCl (Apresoline) 10 mg SLOW IVP Q4H PRN PRN Reason: Hypertension Last Admin: 09/09/18 06:33 Dose: 10 mg Dextrose/Water (D5w) 1,000 mls @ 0 mls/hr IV .Q0M PRN PRN Reason: Hypoglycemia Insulin Human Lispro (Humalog) 0 units SC .MILD SLIDING SCALE PRN PRN Reason: Mild Correctional Scale Lisinopril (Zestril) 10 mg PO BID [facility] Last Admin: 09/13/18 09:14 Dose: 10 mg Sodium Chloride (Flush - Normal Saline) 10 ml IVF Q12HR [facility] Last Admin: 09/13/18 09:15 Dose: 10 ml Sodium Chloride (Flush - Normal Saline) 10 ml IVF PRN PRN PRN Reason: Saline Flush Spironolactone (Aldactone) 25 mg PO QAM- KIKI
[2018-09-13] MEDS: Enoxaparin Sodium 40 MG/0.4 ML SYRINGE SC SCH (21:01)
[2018-09-13] MEDS: Atorvastatin Calcium 40 MG TAB PO SCH (21:01)
[2018-09-14] MEDS ORDERED: Spironolactone 25 MG TAB PO SCH (08:00)
[2018-09-14] MEDS ORDERED: Carvedilol 25 MG TAB PO SCH (08:00)
[2018-09-14] MEDS: Lisinopril 10 MG TAB PO SCH (09:08)
[2018-09-14] MEDS: Aspirin 81 mg Enteric Coated Tablet PO SCH (09:08)
[2018-09-14] MEDS: Furosemide 20 MG TAB PO SCH (09:08)
[2018-09-14] MEDS: Escitalopram Oxalate 20 mg Tablet PO SCH (09:09)
[2018-09-14 15:19] VITALS: BP 134/66; TEMP 98.8
--- NOTE | 2018-09-15 11:45 | DIS ---
DATE OF ADMISSION: 09/08/2018 DATE OF DISCHARGE: 09/14/2018 DISCHARGE DISPOSITION: Home. FOLLOWUP: 1. Follow up with primary care physician, Dr. Wesley Alvarado in 1 week. 2. Follow up with Cardiology in 1 week. 3. Follow up with Infectious Disease in 2 weeks. ALLERGIES: NO KNOWN DRUG ALLERGIES. DISCHARGE MEDICATIONS: 1. Aldactone 25 mg daily. 2. Lisinopril 10 mg b.i.d. 3. Lasix 20 mg daily. 4. Lexapro 10 mg b.i.d. 5. Carvedilol 25 mg b.i.d. 6. Lipitor 40 mg at bedtime. 7. Aspirin 325 mg daily. 8. Metformin 500 mg b.i.d. 9. Remeron 15 mg at bedtime. 10. Seroquel 100 mg at bedtime. The patient was seen and examined on the day of discharge. Denies any new complaints. No chest pain, shortness of breath, or palpitations reported. BRIEF HOSPITAL COURSE: The patient is a 53-year-old female with chronic systolic heart failure, coronary artery disease, hypertension, diabetes mellitus type 2, presented to the hospital with shortness of breath and cough. Please refer to the history and physical for further details. The patient was admitted to the hospital with a diagnosis of acute bronchitis with congestive heart failure exacerbation and hypertensive crisis. She was started on Levaquin. However, she continued to have low-grade fever. Later on, Omnicef was added. Infectious Disease consult was placed due to persistent fever. She was found to have human metapneumovirus infection, which is why she kept having low-grade fever per Infectious Disease. She also showed improvement with diuretics. Her home medications have been optimized by Cardiology. Blood pressure on the day of discharge is 134/66, 146/74, and 157/73 with heart rate of 59. She has been cleared by Cardiology for discharge. FINAL DIAGNOSES: 1. Acute on chronic systolic heart failure exacerbation. The patient was extensively counseled on congestive heart failure. ACC stage C. 2. Elevated troponin secondary to demand ischemia. 3. Acute bronchitis secondary to human metapneumovirus infection. 4. Coronary artery disease. 5. Hypertensive crisis. 6. Obesity with a BMI of 37. 7. Dyslipidemia. 8. Depression. 9. Diabetes mellitus type 2. 10. Hyponatremia. 11. Chronic kidney disease, stage 2. 12. Anxiety and depression. PLAN: Plan of care was discussed with the patient in detail and she stated understanding. Job ID: [id number]
== END 2018-09-14 12:52 | disposition home or self-care (01) | DRG 291 ==
LOC: ERS 17:37 → OBSVTOIN 19:25 → ERHOLD 19:25 → INTOOBSV 19:25 → 2NO 09-09 03:27
PROVIDERS: ADMIT Internal Medicine; ATTEND Internal Medicine
DX: I13.0 Hypertensive heart and chronic kidney disease with heart failure and stage 1 through stage 4 chronic kidney disease, or unspecified chronic kidney disease (principal); I50.23 Acute on chronic systolic (congestive) heart failure; I24.8 Other forms of acute ischemic heart disease; I16.9 Hypertensive crisis, unspecified; E87.1 Hypo-osmolality and hyponatremia; I25.10 Atherosclerotic heart disease of native coronary artery without angina pectoris; E78.5 Hyperlipidemia, unspecified; F41.9 Anxiety disorder, unspecified; F32.9 Major depressive disorder, single episode, unspecified; J20.9 Acute bronchitis, unspecified; E66.9 Obesity, unspecified; Z68.37 Body mass index [BMI] 37.0-37.9, adult; D69.6 Thrombocytopenia, unspecified; E11.22 Type 2 diabetes mellitus with diabetic chronic kidney disease; N18.2 Chronic kidney disease, stage 2 (mild); I25.5 Ischemic cardiomyopathy; B97.81 Human metapneumovirus as the cause of diseases classified elsewhere; Z79.84 Long term (current) use of oral hypoglycemic drugs; Z79.82 Long term (current) use of aspirin; Z95.5 Presence of coronary angioplasty implant and graft; Z83.3 Family history of diabetes mellitus; Z82.49 Family history of ischemic heart disease and other diseases of the circulatory system
CPT/HCPCS: 36415; 36416; 71045; 71046; 80048; 80053; 81001; 82550; 82553; 82565; 83605; 83880; 84484; 85014; 85018; 85025; 85049; 86140; 87040; 87633; 87798; 87804; 93005; 93306; 93798; 93970; 94640; 96365; 96372; 96375; J0360; J1650; J1940; J1956; J3490; J7620

== ENCOUNTER 2019-02-24 11:29 | Emergency (ER) | payer OTHER ==
--- NOTE | 2019-02-24 12:21 | RAD ---
Chest 2 views HISTORY: Cough. Dyspnea. COMPARISON: 09/11/2018. FINDINGS: Cardiac silhouette is magnified and enlarged. Pulmonary vasculature remains engorged. Media stinum is midline. No confluent airspace consolidation, pneumothorax, or pleural fluid. IMPRESSION: Cardiomegaly and pulmonary vascular congestion, stable.
[2019-02-24 12:35] LABS: #Lymphocytes 1.6 thou/uL (1.20-3.40); #Monocytes 0.7 thou/uL (0.11-0.59); #Neutrophils 4.6 thou/uL (1.40-6.50); %Eosinophils 0.6 % (0.0-10.0); %Lymphocytes 23.2 % (21.0-51.0); %Monocytes 9.5 % (0.0-10.0); %Neutrophils 66.7 % (42.0-75.0); Hemoglobin 10.9 g/dL (12.0-16.0); Mean Corpuscular HGB CONC 30.8 g/dL (32.0-36.0); Mean Corpuscular Hemoglobin 23.7 pg (27.0-31.0); Mean Platelet Volume 9.1 fL (7.4-10.4); Platelet Count 328 thou/uL (130-400); Red Blood Cell (RBC) Count 4.61 mill/uL (4.20-5.40); White Blood Cell (WBC) Count 6.9 thou/uL (4.8-10.8)
[2019-02-24 12:49] LABS: ALT (SGPT) 13 U/L (8-55); AST (SGOT) 16 U/L (5-34); Albumin 3.6 g/dL (3.5-5.0); Alkaline Phosphatase 80 U/L (40-150); Anion Gap 13 mmol/L (10-20); BUN (Urea Nitrogen) 24 mg/dL (9.8-20.1); CK (CPK) 303 U/L (29-168); Calc. Creatinine Clearance 0 mL/min (70-130); Calcium 9.3 mg/dL (7.8-10.44); Carbon Dioxide 23 mmol/L (22-29); Chloride 104 mmol/L (98-107); Estimated GFR-MDRD 49; Globulin 3.8 g/dL (2.4-3.5); Glucose 175 mg/dL (70-105); Lipase 15 U/L (8-78); Potassium 3.7 mmol/L (3.5-5.1); Protein, Total 7.4 g/dL (6.0-8.3); Sodium 136 mmol/L (136-145)
[2019-02-24 13:11] LABS: CKMB 4.7 ng/mL (0-6.6)
[2019-02-24] MEDS ORDERED: Furosemide 40 MG TAB ONE (15:07)
[2019-02-24] MEDS ORDERED: hydrALAZINE 10 MG TAB PO SCH (15:15)
== END 2019-02-24 15:39 | disposition home or self-care (01) ==
LOC: ERS 11:29
DX: I11.0 Hypertensive heart disease with heart failure (principal); I50.9 Heart failure, unspecified; E11.9 Type 2 diabetes mellitus without complications; F31.9 Bipolar disorder, unspecified; Z79.899 Other long term (current) drug therapy; Z79.82 Long term (current) use of aspirin; Z79.84 Long term (current) use of oral hypoglycemic drugs
CPT/HCPCS: 36415; 71046; 80053; 82550; 82553; 83690; 83880; 84484; 85025; 87040; 93005; 94760

== ENCOUNTER 2019-06-28 18:11 | Inpatient (IN) | payer OTHER ==
--- NOTE | 2019-06-28 18:38 | CT ---
CT Brain WO Con History: Altered mental status Comparison: None. Findings: Left thalamic hemorrhage without intraventricular extension. Hemorrhage measures 2 cm in tr ansverse by AP dimension of 12 mm. Remainder of the brain is without acute hemorrhage or infarct. Mild periventricular deep white matter microangiopathic changes. No midline shift. No mass effect. Globes are intact. Calvarium is intact. Impression: Left thalamic hemorrhage measuring 2 cm in transverse x 12 mm in AP dimension. Code CR: Pio in the emergency room notified of findings via telephone at 6:34 PM
[2019-06-28] MEDS ORDERED: niCARdipine 20MG In NaCl 20 MG/200 ML BAG ONE ×2 (18:51→20:51)
[2019-06-28] MEDS ORDERED: Ondansetron PF 4 MG/2 ML Vial ONE (18:51)
[2019-06-28] MEDS ORDERED: niCARdipine 25 MG in Sodium Chloride 0.9% 250 ML 240 ML IVPB SCH (19:00)
[2019-06-28] MEDS ORDERED: niCARdipine 25 MG in Sodium Chloride 0.9% 250 ML 240 ML IVPB PRN (19:16)
[2019-06-28] MEDS ORDERED: Labetalol HCl 100 MG/20 ML VIAL SLOW IVP PRN (19:16)
[2019-06-28] MEDS ORDERED: Ondansetron PF 4 MG/2 ML Vial IVP PRN (19:16)
[2019-06-28] MEDS ORDERED: Acetaminophen 650 MG in Premix Bag 1 BAG IVPB PRN (19:23)
[2019-06-28 19:43] LABS: #Monocytes 0.5 thou/uL (0.11-0.59); #Neutrophils 6.6 thou/uL (1.40-6.50); %Basophils 0.4 % (0.0-1.0); %Eosinophils 0.1 % (0.0-10.0); %Lymphocytes 12.5 % (21.0-51.0); %Monocytes 5.5 % (0.0-10.0); %Neutrophils 81.5 % (42.0-75.0); Hemoglobin 13.7 g/dL (12.0-16.0); Mean Corpuscular HGB CONC 32.2 g/dL (32.0-36.0); Mean Corpuscular Hemoglobin 26.5 pg (27.0-31.0); Mean Corpuscular Volume 82.4 fL (78.0-98.0); Mean Platelet Volume 8.6 fL (7.4-10.4); Platelet Count 290 thou/uL (130-400); RBC Distribution Width 17.3 % (11.5-14.5); Red Blood Cell (RBC) Count 5.15 mill/uL (4.20-5.40); White Blood Cell (WBC) Count 8.1 thou/uL (4.8-10.8)
[2019-06-28 20:02] LABS: ALT (SGPT) 19 U/L (8-55); AST (SGOT) 17 U/L (5-34); Alkaline Phosphatase 99 U/L (40-110); Anion Gap 12 mmol/L (10-20); BUN (Urea Nitrogen) 15 mg/dL (9.8-20.1); Bilirubin, Total 0.6 mg/dL (0.2-1.2); CK (CPK) 179 U/L (29-168); Calc. Creatinine Clearance 0 mL/min (70-130); Calcium 9.6 mg/dL (7.8-10.44); Carbon Dioxide 27 mmol/L (22-29); Chloride 100 mmol/L (98-107); Estimated GFR-MDRD 54; Globulin 4.4 g/dL (2.4-3.5); Glucose 313 mg/dL (70-105); Potassium 4.2 mmol/L (3.5-5.1); Protein, Total 8.4 g/dL (6.0-8.3); Sodium 135 mmol/L (136-145)
[2019-06-28 20:45] LABS: Bilirubin Negative (Negative); Blood, Urine Trace (Negative); Clarity Clear (Clear); Glucose, Urine (Dipstick) 500 mg/dL (Negative); Leukocyte Negative Leu/uL (Negative); Mucous/LPF Rare LPF (<2+); Nitrite Negative (Negative); Protein, Urine (Dipstick) 300 mg/dL (Neg-Trace); RBC/HPF 0-3 HPF (0-3); Squamous Epithelial None Seen HPF (0-3); Urobilinogen Normal mg/dL (Less than 2)
[2019-06-28 20:50] LABS: Amphetamine Not Detected (NotDetected); Barbiturates Screen Not Detected (NotDetected); Benzodiazepine Screen Not Detected (NotDetected); Cocaine Metabolite Screen Detected (NotDetected); Medtox Control Line Valid? VALID (VALID); Medtox Reader # READER 4; Methadone Not Detected (NotDetected); Methamphetamine Not Detected (NotDetected); Opiate Screen Not Detected (NotDetected); Oxycodone Screen Not Detected (NotDetected); Phencyclidine (PCP) Not Detected (NotDetected); THC/Cannabinoid Screen Not Detected (NotDetected); Tricyclic Screen Not Detected (NotDetected)
[2019-06-28 20:53] LABS: Bacteria/HPF None Seen HPF (None Seen)
[2019-06-28] MEDS ORDERED: Nitroglycerin 50 MG/250 ML BOT 250 ML ONE (21:18)
--- NOTE | 2019-06-28 22:21 | HP ---
HISTORY OF PRESENT ILLNESS: The patient is a 53-year-old female with a past medical history of uncontrolled hypertension, type 2 diabetes, coronary artery disease with prior stenting, cardiomyopathy, bipolar disorder/ schizophrenia, who presented to the emergency department per EMS after the patient was found this evening in an altered state. The patient was last seen normal around noon earlier today. Family reports approximately 30 minutes prior to arrival, they found the patient confused with right-sided facial droop and right-sided weakness and difficulty speaking. She was brought to [facility] where she was evaluated with a noncontrast head CT, which was notable for acute intracranial hemorrhage near the left thalamus with some slight intraventricular extension. There is no significant hydrocephalus noted on the CT. She is also noted to be significantly hypertensive with most recent blood pressure 253/142. She is also difficult to obtain IV access and a femoral line was placed ultimately by the ER physician. Lab work is currently pending. She had a GCS of 13. She would open her eyes to voice. She was confused, but was able to follow commands. Neurosurgery was asked to consult for the patient's acute intracranial hemorrhage and hypertensive crisis. I recommended that patient be started on Cardene as well as reversing her aspirin which is noted on her medication list. Family is at the bedside, but they are also poor historians. PAST MEDICAL HISTORY: Uncontrolled hypertension, diabetes, coronary artery disease with prior stenting, cardiomyopathy, bipolar disorder, depression. PAST SURGICAL HISTORY: Cardiac stenting x2 in 2014, history of section. SOCIAL HISTORY: The patient lives at home. Family reports that she does not smoke, drink, or use any drugs. REVIEW OF SYSTEMS: Unobtainable at this time secondary to patient's condition. PHYSICAL EXAMINATION: VITAL SIGNS: BP is currently 253/142, pulse is 87, respiratory rate is 20, the patient is 95% on room air, temperature is 98.9. GENERAL: The patient has GCS of 13. She opens her eyes to voice. She is confused, but is able to tell me her name and her location at [facility]. She is following commands. HEENT: Head, normocephalic and atraumatic. She is noted to have a right-sided facial droop. Eyes, pupils are equal and reactive to light. NECK: Nontender to palpation. She is moving her cervical spine without any difficulty. RESPIRATORY: Symmetric chest expansion without any evidence of respiratory distress. CARDIOVASCULAR: Regular rate and rhythm. MUSCULOSKELETAL: No obvious deformities. Symmetric pulses. She does have a right upper extremity drift. NEURO: GCS of 13. Opens her eyes to voice. She is confused, but is able to tell me her name and location. She is able to follow commands, but she does have decreased strength in the right upper extremity and drift. She is also noted to have a right-sided facial droop and slurred speech. ASSESSMENT AND PLAN: This is a 53-year-old female with known poorly controlled hypertension, who appears to have acute hypertensive crisis with acute intracranial hemorrhage of the left thalamic region with some slight intraventricular extension. There is no hydrocephalus noted on the CT. She does have a central line placed and we are starting Cardene with ultimate systolic blood pressure goal of less 140, although we will do this gradually over the next hour considering significant elevation. I have also recommended stopping her aspirin. Head of the bed should be elevated to 30 degrees. We will keep her n.p.o. and she will need a dysphagia screen prior to any PO intake. I will ask Critical Care and the hospitalist to assist with medical management of this patient considering her significant underlying comorbidities as well as very difficult to control hypertension. I have discussed the case personally with Critical Care. Discussed this case with Dr. Teran, who is also in agreement. Job ID: [id number] [facility]
[2019-06-28] MEDS ORDERED: Nitroglycerin 50 MG/250 ML BOT 250 ML IVPB SCH (22:45)
[2019-06-28] MEDS: Sodium Chloride 0.9% 1,000 ML IV SCH (22:58)
[2019-06-28] MEDS: niCARdipine 50 MG in Sodium Chloride 0.9% 250 ML 230 ML IVPB PRN (23:58)
[2019-06-29 05:51] VITALS: BMI 36.8
[2019-06-29] MEDS: niCARdipine 50 MG in Sodium Chloride 0.9% 250 ML 230 ML IVPB PRN (06:40)
--- NOTE | 2019-06-29 07:30 | CT ---
PRELIMINARY REPORT/[facility]/EMERGENCY AFTER HOURS PROCEDURE PROCEDURE INFORMATION: Exam: CT Head Without Contrast Exam date and time: 06/29/2019 3:36 AM Clinical history: 53 years old, female; Condition or disease; Patient HX: F/u ich TECHNIQUE: Imaging protocol: Computed tomography of the head without contrast. COMPARISON: CT Brain WO Con 06/28/2019 6:29 PM FINDINGS: Brain: Unchanged left thalamic hemorrhage. Unremarkable white matter. No midline shift.. Ventricles: No ventriculomegaly. Bones/joints: No acute fracture. Sinuses: Visualized sinuses are unremarkable. No fluid levels. Mastoid air cells: Visualized mastoid air cells are well aerated. Soft tissues: Unremarkable. IMPRESSION: Unchanged left thalamic hemorrhage Thank you for allowing us to participate in the care of your patient. Dictated and Authenticated by: Beba Marin MD 06/29/2019 3:56 AM Central Time ([place] & [place]) FINAL REPORT CT Brain WO Con: 06/29/2019 5:00 AM FINDINGS/IMPRESSION: Final report is in agreement with preliminary interpretation provided above. Redemonstration of left thalamic hemorrhage as was depicted on exam from previous day, without signif icant interval size increase. Transcribed Date/Time: 06/29/2019 7:35 AM
[2019-06-29] MEDS ORDERED: Dextrose 5% in Water 1,000 ML IV PRN (07:35)
[2019-06-29] MEDS ORDERED: Acetaminophen 650 MG Suppository PR PRN (07:35)
[2019-06-29] MEDS ORDERED: HumaLOG 300 UNITS/3 ML VIAL SC PRN (07:35)
[2019-06-29] MEDS ORDERED: Dextrose 50% Abboject 50 ML SYRINGE SLOW IVP PRN (07:35)
[2019-06-29] MEDS ORDERED: Senokot S 8.6-50 MG TAB PO PRN (07:35)
[2019-06-29] MEDS ORDERED: Bisacodyl 10 MG SUPP PR PRN (07:35)
[2019-06-29] MEDS ORDERED: Calcium Carbonate 500 MG ChewTAB PO PRN (07:35)
[2019-06-29] MEDS ORDERED: Nitroglycerin 0.4 MG TAB (25 Tab Bottle) SL PRN (07:35)
[2019-06-29] MEDS ORDERED: Cepastat Lozenges 1 LOZ PO PRN (07:35)
[2019-06-29] MEDS ORDERED: Sodium Chloride 0.65% Nasal 44 ML BOT EA NARE PRN (07:35)
[2019-06-29] MEDS ORDERED: Loperamide HCl 2 MG CAP PO PRN (07:35)
[2019-06-29] MEDS ORDERED: Diabetic Tussin 200 MG/10 ML UDCUP PO PRN (07:35)
[2019-06-29] MEDS ORDERED: Artificial Tears 18 DROP/0.9 ML EA EYE PRN (07:35)
[2019-06-29] MEDS: Glimepiride 2 MG TAB PO SCH (08:56)
[2019-06-29] MEDS: Amlodipine 5 MG TAB PO SCH (08:57)
[2019-06-29] MEDS: metFORMIN 500 MG TAB PO SCH ×2 (08:57→16:32)
[2019-06-29] MEDS: hydrALAZINE 25 MG TAB PO SCH ×2 (08:58→21:10)
[2019-06-29] MEDS: Carvedilol 25 MG TAB PO SCH ×2 (08:58→21:10)
[2019-06-29] MEDS: Furosemide 80 MG TAB PO SCH (08:58)
[2019-06-29] MEDS: Lisinopril 10 MG TAB PO SCH (08:58)
[2019-06-29] MEDS ORDERED: FLU VACC QS2019-20(6MOS UP)/PF 60 MCG/0.5 ML SYRINGE IM ONE (09:00)
[2019-06-29] MEDS: Sodium Chloride 0.9% 1,000 ML IV SCH (11:49)
[2019-06-29] MEDS: HumaLOG 300 UNITS/3 ML VIAL SC PRN (12:16)
--- NOTE | 2019-06-29 13:29 | CON ---
DATE OF CONSULTATION: PRIMARY CARE PHYSICIAN: Dr. Wesley Alvarado. PRIMARY ATTENDING: Keron Teran MD. REASON FOR ADMISSION: Hypertensive emergency, intracranial hemorrhage. HISTORY OF PRESENT ILLNESS: A 53-year-old female, who has underlying history of chronic systolic heart failure with EF 40% to 45% based on echocardiography in August 2018. The patient also has cardiac catheterization in 2016. Last night, the patient was brought to ER because of altered mental status. When she came to ER, her blood pressure was 258/139. The patient was also found with some facial droop. The patient was not able to provide any history. In the emergency room, the patient had a CT brain which showed 2 cm x 12 mm left thalamic hemorrhage. Neurosurgery was notified and the patient was admitted overnight under Neurosurgery service. This morning, the patient had repeat CT brain which pretty much remained stable hemorrhage. The patient was treated overnight with a Cardene drip, and she was also receiving nitro drip and IV fluid. This morning, the patient passed her swallow evaluation and we started her home medication. We discontinued IV fluid and Cardene and nitro drip is trying to wean. The patient was also able to go to bedside commode with graphic design assistant. The patient does not have any motor weakness or sensory symptoms. The patient is arousable, but she is slightly lethargic and poor historian. The patient's urine drug screen was positive for cocaine. REVIEW OF SYSTEMS: All review of system tried to review with the patient, but unable to review at this point because of her lethargy and noncompliance. She is not participating with review of system and history. PAST MEDICAL HISTORY: 1. Diabetes type 2. 2. Coronary artery disease with a history of stent. 3. Chronic systolic heart failure with EF 40% to 45%. 4. Hypertension. 5. Dyslipidemia. 6. Morbid obesity with a BMI of 36. 7. Chronic low back pain. PAST SURGICAL HISTORY: 1. . 2. Cardiac catheterization with stent placement. 3. Repeat cardiac catheterization in November 2016. PAST PSYCHIATRIC HISTORY: Anxiety and depression. SOCIAL HISTORY: The patient lives with her boyfriend. No history of tobacco or alcohol abuse, but her urine drug screen is positive for cocaine. FAMILY HISTORY: Diabetes and hypertension run among several family members. ALLERGIES: NO KNOWN DRUG ALLERGY. CURRENT HOME MEDICATIONS: At this point, we are not able to verify home medication, but based on her recent hospital record, the patient is on following medications: 1. Amlodipine 5 mg daily. 2. Aspirin 81 mg daily. 3. Lipitor 40 mg p.o. at bedtime. 4. Coreg 25 mg b.i.d. 5. Plavix 75 mg daily. 6. Lexapro 30 mg daily. 7. Lasix 80 mg daily. 8. Glimepiride 4 mg daily. 9. Hydralazine 25 mg b.i.d. 10. Lisinopril 10 mg daily. 11. Metformin 500 mg p.o. b.i.d. 12. Metoprolol tartrate 100 mg p.o. b.i.d. 13. Remeron 15 mg p.o. at bedtime. 14. Seroquel 50 mg p.o. at bedtime. EMERGENCY ROOM COURSE: The patient has received nitroglycerin drip, Cardene drip, Zofran 8 mg. PHYSICAL EXAMINATION: VITAL SIGNS: This morning, blood pressure 131/75, pulse 78, respiratory rate 18, temperature 98.6, saturation 97% on room air, weight 107.3 kg. GENERAL: The patient is currently alert, follows simple command, lethargic, goes back to sleep very quickly. HEAD: Normocephalic and atraumatic. EYES: Pupils round and reactive to light. Extraocular muscle intact. ENT: Oropharynx within normal limits. Moist mucous membranes. No oral lesion. No pharyngeal erythema. No exudate. NECK: Supple. No JVD. No thyromegaly. No carotid bruit. No jugular venous distention. LUNGS: Clear to auscultation without any rhonchi or rales. CARDIAC: S1 and S2 regular. No murmur elicited. No gallop. No rub. ABDOMEN: Obesity present. Bowel sounds present. Nontender. Nondistended. No organomegaly. No mass. No suprapubic tenderness. BACK: Unremarkable. No CVA tenderness. EXTREMITIES: Upper extremity, passive movement of all joints are normal. Lower extremity, no edema. Good distal pulsation. NEUROLOGIC: The patient is moving all 4 limbs. Does not have any focal neurological deficits, though the patient does have mild weakness on the right side with the power is 4/5 on the right side and right-sided facial droop. SIGNIFICANT LABORATORY DATA: EKG showing LVH, left anterior fascicular block, nonspecific ST-T changes. CT brain, left thalamus hemorrhage. CBC: WBC 8.1, hemoglobin 13.7, platelet 290. BMP: Sodium 135, potassium 4.2, chloride 100, carbon dioxide 27, anion gap 12, BUN 15, creatinine 1.25, glucose 313, calcium 9.6. LFT: AST 17, ALT 19, alkaline phosphatase 99, albumin 4.0. BNP 794.4. Urine drug screen positive for cocaine. Urinalysis: Glycosuria, proteinuria. Repeat CT brain showing stable intracranial hemorrhage. ASSESSMENT AND PLAN: 1. Hypertensive emergency, controlled after Cardene drip. Currently, the patient has passed swallow evaluation and we are going to start her antihypertensive medication including amlodipine, Coreg, hydralazine, and lisinopril and we will try to wean off nitroglycerin drip as well as Cardene drip and subsequently we will adjust oral blood pressure medication as needed. 2. Left basal ganglial intracranial hemorrhage, likely due to hypertensive bleed. The patient is admitted under neurosurgeon. The patient is not planned for any surgical intervention. We are willing to take this patient in our service if neurosurgeon okay. The patient will be observed in ICU, the Cardene drip and nitroglycerin drip are weaned off, and we will consider transferring to stroke floor, we will continue with the stroke team evaluation with PT, OT, Speech. Depending upon her clinical course, we will decide whether the patient will need any rehab placement or not. Regarding stroke workup, the patient does not need any more investigation at this point because the patient already had echocardiography in the recent past. Repeat CT brain also showed stable ET of the intracranial hemorrhage. We will try to manage blood pressure very effectively. 3. Cocaine abuse that might have precipitated hypertensive emergency and intracranial hemorrhage. 4. Diabetes type 2. We will continue with metformin 500 mg p.o. b.i.d. and glimepiride 4 mg p.o. daily, diabetic diet will be given, insulin as per sliding scale protocol. 5. History of coronary artery disease with a stent currently because of intracranial hemorrhage. The patient is contraindicated with aspirin and Plavix. The patient's stent is also placed long time ago, and the patient does not have any cardiac symptoms, and EKG unremarkable. We will continue with beta clarita, GARO inhibitor, and statin therapy. 6. Dyslipidemia, continue Lipitor 40 mg p.o. at bedtime. 7. Anxiety and depression, continue Lexapro 30 mg p.o. daily, Remeron 15 mg p.o. at bedtime, Seroquel 50 mg p.o. at bedtime after confirmation of dose. 8. Obesity with BMI of 36. Dietary education given. 9. Chronic kidney disease, stage 3. We will monitor renal function. 10. Chronic systolic heart failure with EF 40% to 45%. Currently, the patient is euvolemic. We will discontinue IV fluids as the patient is taking oral intake well to prevent any fluid overload, and we will continue Lasix 80 mg p.o. daily. The patient is already on optimum medical therapy for CHF. 11. Deep venous thrombosis prophylaxis, SCD boots only. No Lovenox because of intracranial hemorrhage. 12. Gastrointestinal prophylaxis, Pepcid 20 mg p.o. b.i.d. CODE STATUS: The patient is full code. The patient does not have any surrogate decision maker. DISPOSITION PLAN: Based on clinical course, we are expecting the patient's stay in hospital more than 2 midnights, plan of care discussed with the patient in detail. Job ID: [id number]
--- NOTE | 2019-06-29 14:29 | PRG ---
DATE OF SERVICE: 06/29/2019 SUBJECTIVE: The patient is seen and examined. I agree with Amira Irving's evaluation, 06/28/2019. The patient is a 53-year-old woman with a host of medical comorbidities including malignant hypertension. She presented with sudden onset of altered mental status. Currently, she is alert and appropriate with a nonfocal neurologic exam. She is normotensive, but has required multiple drips and oral medications to achieve this. IMAGING STUDIES: CT scan reveals a small posterior thalamic hemorrhage, presumably hypertensive. This is stable on followup CT. IMPRESSION AND PLAN: Small hypertensive thalamic hemorrhage. She is neurologically intact and no intervention is planned. The main focus will be on managing her hypertension. We will plan to transfer her to the hospitalist service and arrange for a followup head CT in 4 weeks. Job ID: [id number]
--- NOTE | 2019-06-29 16:25 | CON ---
DATE OF CONSULTATION: 06/29/2019 SERVICE: Pulmonary Medicine. REASON FOR CONSULT: ICU patient. HISTORY OF PRESENT ILLNESS: The patient is a 53-year-old female with past medical history significant for hypertension. She was in her usual state of health when she had onset of altered mental status. She was brought to the Emergency Department. A CT of the head demonstrated a 2 cm x 1 cm hemorrhagic lesion in the left thalamus. A repeat CT scan later demonstrated that things were stable. On presentation, she had blood pressures in the 250s/140s. This was controlled with 2 separate drips. Both of those drips have been rapidly deescalated. She is currently on p.o. medications working with Physical Therapy. She denies having any chest discomfort, nausea, vomiting, or shortness of breath at this point. She is delayed in her thinking. That being said, there is not currently any obvious deficit present. PAST MEDICAL HISTORY: 1. Type 2 diabetes mellitus. 2. Hypertension. 3. Dyslipidemia. 4. Coronary artery disease. 5. Chronic systolic and diastolic heart failure. 6. Bipolar disorder. 7. Schizophrenia. PAST SURGICAL HISTORY: 1. PCI x2 in 2014. 2. section. SOCIAL HISTORY: Negative for alcohol, tobacco, or illicit drug use based on what she says. She has no exposure to chemicals, dust, asbestos, or tuberculosis. FAMILY HISTORY: Noncontributory. ALLERGIES: NO KNOWN DRUG ALLERGIES. MEDICATIONS: List of her inpatient medications was reviewed. No specific updates were made at this time. REVIEW OF SYSTEMS: General, head, ears, eyes, nose, throat, cardiovascular, respiratory, GI, , musculoskeletal, neurologic, and skin are negative except as mentioned in the HPI. PHYSICAL EXAMINATION: VITAL SIGNS: Afebrile, pulse 65, blood pressure 137/67, respirations 13, and saturation 98% on room air. GENERAL: The patient is awake and alert, in no apparent distress. LUNGS: Really good air entry without any prolonged expiratory phase, wheezing, crackles, or rhonchi present. HEART: Normal rate. Regular. ABDOMEN: Soft, nontender, and nondistended. Bowel sounds are positive. MUSCULOSKELETAL: No cyanosis or clubbing. There is no pitting in the bilateral lower extremities. NEUROLOGIC: Grossly nonfocal. LABORATORY DATA: CBC is completely unremarkable. D-dimer 0.27. Creatinine 1.25, which is close to baseline. Urinalysis is unremarkable. Toxicology is positive for cocaine. IMAGIN. CT of the brain demonstrates a stable left thalamic lesion measuring 2 cm x 1 cm roughly. 2. Chest x-ray demonstrates no evidence of cardiomegaly. Cephalization is present consistent with volume overload. I do not see any overt consolidating changes, edema, or effusions. ASSESSMENT: 1. Intraparenchymal hemorrhage, currently stable. 2. Hypertensive emergency, currently well controlled. 3. Cocaine abuse, possible. DISCUSSION AND PLAN: The patient's blood pressure is under good control. Our target will be systolic blood pressure less than 140. She is currently stable from a hemodynamic and respiratory standpoint for transition to the stroke unit. I will follow her in this location, but when she arrives on the floor, she will have no further requirement for Pulmonary opinion, and I will sign off. 70 minutes have been devoted to this patient in various activities. I personally reviewed all imaging studies and laboratory data noted within this document. For fifty percent of this time, I was interacting with the patient at the bedside or coordinating care with the care team. For the remainder of the time I was immediately available to the patient in the hospital unit. Job ID: [id number] MTDD
[2019-06-29] MEDS: Atorvastatin Calcium 40 MG TAB PO SCH (21:10)
[2019-06-29] MEDS: Famotidine 20 MG TAB PO SCH (21:10)
[2019-06-30] MEDS ORDERED: Ondansetron ODT 4 MG TAB SL PRN (07:40)
[2019-06-30] MEDS ORDERED: HYDROcodone/Acetaminophen 5/325 mg Tablet PO PRN (07:40)
--- NOTE | 2019-06-30 08:09 | PRG ---
DATE OF SERVICE: 06/30/2019 SUBJECTIVE: The patient is a 53-year-old female evaluated on 06/28/2019 for acute hypertensive crisis with left thalamic intracranial hemorrhage. She was initially transitioned to the ICU where her blood pressure was managed with multiple hypertensive drips. Her followup CT scan was stable. Her blood pressure is now being controlled with p.o. medications, and she was transitioned to the floor yesterday. Her neurologic exam is also improved. OBJECTIVE: On exam this morning, patient is sleeping, but she awakens to my voice. Pupils are equal and reactive to light. Extraocular movements are intact. She is moving all 4s with no focal deficits appreciated on my exam. She is able to tell me her name and location. ASSESSMENT AND PLAN: The patient appears to be neurologically intact at this time and no acute neurosurgical intervention is planned. She will continue to need aggressive treatment of her hypertension which is being managed by the Medical team. We will go ahead and sign off on the case and arrange followup in 4 weeks with an outpatient head CT. The patient should remain off any anticoagulants or aspirin. Please reach out to Neurosurgery for any additional questions or concerns. Job ID: [id number]
[2019-06-30] MEDS: hydrALAZINE 25 MG TAB PO SCH ×2 (09:04→20:44)
[2019-06-30] MEDS: Amlodipine 5 MG TAB PO SCH (09:05)
[2019-06-30] MEDS: Glimepiride 2 MG TAB PO SCH (09:05)
[2019-06-30] MEDS: Lisinopril 10 MG TAB PO SCH (09:06)
[2019-06-30] MEDS: metFORMIN 500 MG TAB PO SCH ×2 (09:06→18:11)
[2019-06-30] MEDS: Famotidine 20 MG TAB PO SCH ×2 (09:06→20:44)
[2019-06-30] MEDS: Furosemide 80 MG TAB PO SCH (09:06)
[2019-06-30] MEDS: Carvedilol 25 MG TAB PO SCH ×2 (09:07→20:45)
--- NOTE | 2019-06-30 11:45 | PDOC.HOSPP ---
- Subjective Encounter Date: 06/30/19 Encounter Time: 07:15 Subjective: pt is lethargic, somnolent today, arousable, no headache, moves all four limb Patient seen and examined. No new complaints. No overnight events - Objective Vital Signs & Weight: Vital Signs (12 hours) Temp Pulse Resp BP BP Pulse Ox 06/30/19 09:59 129/66 06/30/19 09:06 176/95 H 06/30/19 09:05 67 06/30/19 09:04 67 06/30/19 08:00 98.4 F 66 20 176/95 H 94 L 06/30/19 04:00 98.7 F 68 20 130/77 99 06/30/19 01:20 135/60 06/30/19 00:23 66 159/84 H 06/30/19 00:00 98.9 F 70 20 169/94 H 91 L Weight Admit Weight 242 lb 4.608 oz Weight 233 lb 4.8 oz Most Recent Monitor Data Heart Rate from ECG 62 NIBP 143/74 NIBP BP-Mean 97 Respiration from ECG 24 SpO2 99 I&O: 06/29/19 06/30/19 07/01/19 06:59 06:59 06:59 Intake Total 1209 1022 Output Total 1450 Balance 1209 -428 Result Diagrams: 06/28/19 19:33 06/28/19 18:24 Additional Labs: Accuchecks 06/30/19 06/30/19 06/29/19 10:54 05:56 20:15 POC Glucose 109 94 135 H 06/29/19 16:18 POC Glucose 127 H EKG Reviewed by me: Yes (nsr) Hospitalist ROS - Review of Systems ROS unobtainable: due to mental status Other: not participating due to somnolence and not reliable - Medication Medications: Active Medications Generic Name Dose Route Start Last Admin Trade Name Freq PRN Reason Stop Dose Admin Amlodipine Besylate 5 mg 06/29/19 09:00 06/30/19 09:05 Norvasc PO 5 mg DAILY KIKI Administration Atorvastatin Calcium 40 mg 06/29/19 21:00 06/29/19 21:10 Lipitor PO 40 mg HS KIKI Administration Carvedilol 25 mg 06/29/19 09:00 06/30/19 09:07 Coreg PO 25 mg BID KIKI Administration Famotidine 20 mg 10/09/19 21:00 06/30/19 09:06 Pepcid PO 20 mg BID KIKI Administration Furosemide 80 mg 06/29/19 09:00 06/30/19 09:06 Lasix PO 80 mg DAILY KIKI Administration Glimepiride 4 mg 06/29/19 08:00 06/30/19 09:05 Amaryl PO 4 mg QAM-WM KIKI Administration Hydralazine HCl 25 mg 06/29/19 09:00 06/30/19 09:04 Apresoline PO 25 mg BID KIKI Administration Insulin Human Lispro 0 units 06/29/19 07:35 06/29/19 12:16 Humalog SC 4 unit .MODERATE SLIDING SC PRN Administration Moderate Correctional Scale Labetalol HCl 10 mg 06/28/19 19:16 06/30/19 00:23 Normodyne SLOW IVP 10 mg Q4H PRN Administration SBP > 150 or DBP > 90 Lisinopril 10 mg 06/29/19 09:00 06/30/19 09:06 Zestril PO 10 mg DAILY KIKI Administration Metformin HCl 500 mg 06/29/19 08:00 06/30/19 09:06 Glucophage PO 500 mg BID-WM KIKI Administration Sodium Chloride 10 ml 06/28/19 19:16 06/30/19 00:25 Flush - Normal Saline IVF 10 ml PRN PRN Administration Saline Flush Sodium Chloride 10 ml 06/29/19 09:00 06/30/19 09:04 Flush - Normal Saline IVF 10 ml Q12HR KIKI Administration - Exam General Appearance: NAD Eye: PERRL, anicteric sclera ENT: normocephalic atraumatic, no oropharyngeal lesions Neck: supple, symmetric, no JVD, no thyromegaly Heart: RRR, no murmur, no gallops, no rubs, normal peripheral pulses Respiratory: CTAB, no wheezes, no rales, no ronchi Gastrointestinal: soft, non-tender, non-distended, normal bowel sounds Extremities: no cyanosis, no clubbing, no edema Skin: normal turgor, no lesions, no rashes Neurological: cranial nerve grossly intact, normal sensation to touch Neurological - other findings: moves all four limb Musculoskeletal: normal tone, normal strength Psychiatric: normal affect, normal behavior Hosp A/P (1) Hypertensive crisis Code(s): I16.9 - HYPERTENSIVE CRISIS, UNSPECIFIED Status: Resolved (2) ICH (intracerebral hemorrhage) Code(s): I61.9 - NONTRAUMATIC INTRACEREBRAL HEMORRHAGE, UNSPECIFIED Status: Acute Qualifiers: Intracerebral hemorrhage etiology: nontraumatic Cerebral hemorrhage location: cerebral hemisphere, subcortical portion Laterality: left Qualified Code(s): I61.0 - Nontraumatic intracerebral hemorrhage in hemisphere, subcortical (3) Cocaine abuse Code(s): F14.10 - COCAINE ABUSE, UNCOMPLICATED Status: Acute (4) Chronic systolic CHF, NYHA class 2 and HUSEYIN/AHA stage C Code(s): I50.22 - CHRONIC SYSTOLIC (CONGESTIVE) HEART FAILURE Status: Chronic (5) Anxiety and depression Code(s): F41.9 - ANXIETY DISORDER, UNSPECIFIED; F32.9 - MAJOR DEPRESSIVE DISORDER, SINGLE EPISODE, UNSPECIFIED Status: Chronic (6) Coronary artery disease Code(s): I25.10 - ATHSCL HEART DISEASE OF [place] CORONARY ARTERY W/O ANG PCTRS Status: Chronic Qualifiers: Coronary Disease-Associated Artery/Lesion type: [place] artery [place] vs. transplanted heart: [place] heart Associated angina: without angina Qualified Code(s): I25.10 - Atherosclerotic heart disease of [place] coronary artery without angina pectoris (7) DM2 (diabetes mellitus, type 2) Status: Chronic Qualifiers: Diabetes mellitus exterminator termite insulin use: with exterminator termite use Diabetes mellitus complication detail: with chronic kidney disease Chronic kidney disease stage: stage 2 (mild) (8) Dyslipidemia Code(s): E78.5 - HYPERLIPIDEMIA, UNSPECIFIED Status: Chronic (9) Obesity (BMI 30-39.9) Code(s): E66.9 - OBESITY, UNSPECIFIED Status: Chronic - Plan old records reviewed/req, PT/OT, socially responsible investment adviser, speech therapy, DVT proph w/ SCDs 06/30/19- continue to monitor, today speech therapy will do MBS to decide safe diet, continue stroke team evaluation, will decide if she needs any rehab, today will monitor and adjust BP medication. medication reviewed as above, symptomatic treatment
--- NOTE | 2019-06-30 14:28 | RAD ---
Exam: Modified barium swallow was receptionist secretary HISTORY: Dysphasia following nontraumatic hemorrhage intracranially. Unspecified dysphasia Fluoroscopy time 2.02 minutes. Dose 11.16 mGy FINDINGS: Patient was evaluated in the upright lateral position and was given multiple consistencies. There was penetration with multiple consistencies. No evidence for paolo aspiration. IMPRESSION: Penetration with multiple consistencies. Please see speech therapy report for additional findings and recommendations.
[2019-06-30] MEDS: cloNIDine 0.1 MG TAB PO PRN (15:49)
--- NOTE | 2019-06-30 20:40 | CT ---
CT Brain WO Con History: Increased NIH Comparison: CT brain prior day Findings: No significant size increase left thalamic infarction. No intraventricular extension. No mi dline shift no mass effect. No new acute superimposed infarction. Mild periventricular and deep white matter microangiopathy changes. No hydrocephalus. Calvarium is intact. The nasal sinuses and mastoids are clear. Impression: Size unchanged left thalamic hemorrhage.
[2019-06-30] MEDS: Atorvastatin Calcium 40 MG TAB PO SCH (20:44)
[2019-07-01] MEDS: hydrALAZINE 20 MG/ML VIAL SLOW IVP PRN ×2 (02:30→06:31)
[2019-07-01] MEDS: Carvedilol 25 MG TAB PO SCH ×2 (09:51→21:20)
[2019-07-01] MEDS: Glimepiride 2 MG TAB PO SCH (09:51)
[2019-07-01] MEDS: metFORMIN 500 MG TAB PO SCH ×2 (09:51→18:05)
[2019-07-01] MEDS: Furosemide 80 MG TAB PO SCH (09:51)
[2019-07-01] MEDS: hydrALAZINE 25 MG TAB PO SCH ×2 (09:51→20:15)
[2019-07-01] MEDS: Amlodipine 5 MG TAB PO SCH (09:52)
[2019-07-01] MEDS: Lisinopril 10 MG TAB PO SCH (09:52)
[2019-07-01] MEDS: Famotidine 20 MG TAB PO SCH ×2 (09:52→20:16)
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
[2019-07-01] MEDS: HumaLOG 300 UNITS/3 ML VIAL SC PRN (11:46)
[2019-07-01] MEDS: Atorvastatin Calcium 40 MG TAB PO SCH (20:15)
[2019-07-01] MEDS: cloNIDine 0.1 MG TAB PO PRN (23:47)
[2019-07-02] MEDS: cloNIDine 0.1 MG TAB PO PRN ×2 (06:07→16:22)
[2019-07-02] MEDS: metFORMIN 500 MG TAB PO SCH ×2 (09:15→17:29)
[2019-07-02] MEDS: Famotidine 20 MG TAB PO SCH ×2 (09:15→21:15)
[2019-07-02] MEDS: Glimepiride 2 MG TAB PO SCH (09:15)
[2019-07-02] MEDS: hydrALAZINE 25 MG TAB PO SCH ×2 (09:16→21:15)
[2019-07-02] MEDS: Furosemide 80 MG TAB PO SCH (09:18)
[2019-07-02] MEDS: Lisinopril 10 MG TAB PO SCH (09:19)
[2019-07-02] MEDS: Amlodipine 5 MG TAB PO SCH ×3 (09:19→21:15)
[2019-07-02] MEDS: Carvedilol 25 MG TAB PO SCH ×2 (09:26→09:34)
[2019-07-02] MEDS ORDERED: Carvedilol 6.25 MG TAB PO SCH (09:30)
[2019-07-02] MEDS: Carvedilol 6.25 MG TAB PO SCH (17:29)
[2019-07-02] MEDS ORDERED: Amlodipine 5 MG TAB PO SCH (21:00)
[2019-07-02] MEDS: Atorvastatin Calcium 40 MG TAB PO SCH (21:15)
--- NOTE | 2019-07-02 21:41 | PRG ---
DATE OF SERVICE: 07/02/2019 SUBJECTIVE: The patient is a 53-year-old female with uncontrolled hypertension, diabetes mellitus type 2, coronary artery disease, presented to the hospital on June 28, 2019, with altered mentation. Workup was consistent with hypertensive crisis with acute intracranial hemorrhage. She was monitored in the intensive care unit. She was placed on Cardene drip. Her antihypertensives have been transitioned to oral. She was transferred to the stroke unit. Her mentation is gradually improving. She denies any headache at this time. No new focal deficit per RN report. REVIEW OF SYSTEMS: Cannot be obtained due to current cognitive status. PHYSICAL EXAMINATION: VITAL SIGNS: Temperature 97.9, pulse of 55, respirations of 22, blood pressure of 143/77 and 118/71 with O2 saturation 100% on room air. GENERAL: A 53-year-old female, in no apparent distress. LUNGS: Diminished air entry at bilateral bases. HEART: S1 and S2 present, regular. ABDOMEN: Soft, nontender. Bowel sounds present. EXTREMITIES: No new focal deficit. The patient is neglecting the right side. LABORATORY FINDINGS: Has no labs since June 28. Accu-Chek was 111 and 129. Urinalysis was negative. Urine drug screen was positive for cocaine. CT scan of the brain on June 30, by my review showed left thalamic hemorrhage. Telemetry monitoring by my review showed sinus rhythm. CURRENT MEDICATIONS: Reviewed. The patient is on, 1. Carvedilol. 2. Amlodipine. 3. Lasix. 4. Glimepiride. 5. Hydralazine. 6. Metformin. 7. Lisinopril. IMPRESSION: 1. Toxic metabolic encephalopathy. 2. Left thalamic hemorrhage secondary to hypertensive crisis precipitated by cocaine as well as medication noncompliance. 3. Diabetes mellitus, type 2. 4. Chronic systolic heart failure, appears to be compensated. 5. Anxiety. 6. Coronary artery disease. 7. Obesity with a BMI 35. PLAN: Amlodipine will be increased to twice a day. We will change carvedilol to 12.5 b.i.d. We will continue glimepiride. Continue lisinopril. We will recheck labs. Continue Stroke Team. DVT prophylaxis with SCDs. Pepcid for GI prophylaxis. Job ID: [id number]
--- NOTE | 2019-07-03 02:45 | EKG ---
Test Reason : Blood Pressure : / mmHG Vent. Rate : 082 BPM Atrial Rate : 082 BPM P-R Int : 130 ms QRS Dur : 108 ms QT Int : 434 ms P-R-T Axes : 047 -55 073 degrees QTc Int : 507 ms Normal sinus rhythm Biatrial enlargement Left anterior fascicular block Left ventricular hypertrophy Nonspecific T wave abnormality Prolonged QT Abnormal ECG Confirmed by KATHIE BLACK, LOURDES Simmons ([id number]), fashion editor HUNG HUMMEL ([id number]) on 07/03/2019 2:45:17 AM Referred By: Confirmed By:LOURDES VÁZQUEZ MD
[2019-07-03 05:06] LABS: #Basophils 0.1 thou/uL (0.0-0.2); #Eosinphils 0.1 thou/uL (0.0-0.7); #Lymphocytes 1.9 thou/uL (1.20-3.40); #Monocytes 0.8 thou/uL (0.11-0.59); #Neutrophils 3.2 thou/uL (1.40-6.50); %Eosinophils 2.2 % (0.0-10.0); %Monocytes 13.4 % (0.0-10.0); %Neutrophils 52.5 % (42.0-75.0); Hemoglobin 13.1 g/dL (12.0-16.0); Mean Corpuscular HGB CONC 32.1 g/dL (32.0-36.0); Mean Corpuscular Hemoglobin 27.1 pg (27.0-31.0); Mean Corpuscular Volume 84.4 fL (78.0-98.0); Mean Platelet Volume 8.2 fL (7.4-10.4); Platelet Count 278 thou/uL (130-400); RBC Distribution Width 16.3 % (11.5-14.5); Red Blood Cell (RBC) Count 4.84 mill/uL (4.20-5.40)
[2019-07-03 05:23] LABS: ALT (SGPT) 11 U/L (8-55); AST (SGOT) 13 U/L (5-34); Alkaline Phosphatase 75 U/L (40-110); Anion Gap 12 mmol/L (10-20); BUN (Urea Nitrogen) 38 mg/dL (9.8-20.1); Bilirubin, Total 0.5 mg/dL (0.2-1.2); Calc. Creatinine Clearance 57 mL/min (70-130); Calcium 9.9 mg/dL (7.8-10.44); Carbon Dioxide 31 mmol/L (22-29); Chloride 99 mmol/L (98-107); Estimated GFR-MDRD 34; Glucose 93 mg/dL (70-105); Phosphorus 4.1 mg/dL (2.3-4.7); Potassium 4.1 mmol/L (3.5-5.1); Sodium 138 mmol/L (136-145)
[2019-07-03] MEDS: metFORMIN 500 MG TAB PO SCH ×2 (08:46→17:54)
[2019-07-03] MEDS: Glimepiride 2 MG TAB PO SCH (08:46)
[2019-07-03] MEDS: hydrALAZINE 25 MG TAB PO SCH (08:46)
[2019-07-03] MEDS: Furosemide 80 MG TAB PO SCH (08:46)
[2019-07-03] MEDS: Lisinopril 10 MG TAB PO SCH (08:47)
[2019-07-03] MEDS: Famotidine 20 MG TAB PO SCH (08:47)
[2019-07-03] MEDS: Amlodipine 5 MG TAB PO SCH ×2 (08:47→08:57)
[2019-07-03] MEDS: Carvedilol 6.25 MG TAB PO SCH ×2 (08:47→17:53)
[2019-07-03] MEDS ORDERED: Polyethylene Glycol 3350 17 GM Packet PO SCH (09:00)
[2019-07-03] MEDS ORDERED: Senokot S 8.6-50 MG TAB PO SCH (09:00)
[2019-07-03] MEDS: HumaLOG 300 UNITS/3 ML VIAL SC PRN (11:11)
[2019-07-03] MEDS: hydrALAZINE 20 MG/ML VIAL SLOW IVP PRN (12:54)
[2019-07-03 15:50] VITALS: TEMP 98.1
--- NOTE | 2019-07-03 16:24 | DIS ---
DATE OF ADMISSION: 06/28/2019 DATE OF DISCHARGE: 07/03/2019 DIAGNOSES: 1. Acute intracranial hemorrhage of the left thalamic region secondary to uncontrolled hypertension. 2. Hypertensive crisis, resolved. 3. Medication noncompliance. 4. Cocaine abuse. 5. Diabetes mellitus type 2, stable. 6. Acute kidney injury on chronic kidney disease stage 3. 7. Right-sided weakness secondary to #1. CONSULTATIONS: 1. Neurosurgical service with Dr. Teran. 2. Dr. Camejo with Pulmonology/Critical Care Service. PERTINENT LABORATORY AND X-RAY FINDINGS: Creatinine ranged between 1.25 to 1.89. Estimated GFR ranged between 34 to 54. LFTs within normal limits. Magnesium 2.0. BNP 794. CBC within normal limits. Urine drug screen dated 06/28/2019, positive for cocaine. CT of the brain without contrast dated 06/28/2019, showed left thalamic hemorrhage measuring 2 cm transverse x 1.2 cm in AP dimension. Repeat CT imaging of the brain dated 06/30/2019 showed stable left thalamic intracranial hemorrhage. Modified barium swallow study dated 06/30/2019 showed penetration with multiple consistencies. HOSPITAL COURSE: The patient was initially admitted to the Critical Care Unit after presenting with altered mental status. The patient was noted with right-sided facial asymmetry and right-sided weakness concerning for CVA. The patient underwent emergent CT imaging of the brain confirming a left thalamic intracranial hemorrhage. The patient was placed in the Critical Care Unit on Cardene infusion due to hypertensive crisis. The patient's initial blood pressure noted 253/142. The patient was also noted with positive cocaine metabolites and urine drug screen, likely contributing to patient's presentation in addition to medication noncompliance. No specific surgical intervention was recommended and the patient was monitored with serial CT imaging of the brain. Serial CTs did show stable intracranial hemorrhage in the left thalamic region without specific intervention. The patient clinically stabilized and blood pressure improved, transitioning off Cardene infusion. The patient was transitioned to oral medications currently titrated for optimal response. Due to patient's overall presentation with right-sided asymmetry, the patient was placed on a mechanical diet at the recommendations of Speech Therapy. Due to the patient's general right-sided weakness and acute CVA, the patient was deemed an appropriate candidate for ongoing acute inpatient rehabilitation. The patient has been approved for transfer to [facility] and will transfer on 07/03/2019. I have examined the patient at time of discharge and discussed followup instructions. The patient verbalized understanding and in agreement ready for discharge on 07/03/2019. DISCHARGE MEDICATIONS: 1. Carvedilol 25 mg p.o. b.i.d. 2. Lasix 80 mg p.o. daily. 3. Glimepiride 4 mg p.o. daily. 4. Hydralazine 25 mg p.o. b.i.d. 5. Norvasc 5 mg p.o. b.i.d. FOLLOWUP: The patient may follow up with her primary care provider, Dr. Wesley Alvarado after discharge from inpatient rehabilitation. CONDITION ON DISCHARGE: Fair. ACTIVITY: Ad-gómez. DIET: ADA and heart healthy mechanical soft. CODE STATUS: Full. DISPOSITION: Discharged to [facility] 07/03/2019. TIME SPENT: Total time preparing and coordinating discharge 33 minutes. Job ID: [id number]
[2019-07-03 17:54] VITALS: BP 175/87
== END 2019-07-03 18:15 | DRG 64 ==
LOC: ERS 18:11 → CCU 22:31 → 2SE 06-29 17:08
PROVIDERS: ADMIT Neurological Surgery; ATTEND Neurological Surgery
PROC: 3E0234Z Introduction of Serum, Toxoid and Vaccine into Muscle, Percutaneous Approach (ICD-10-PCS; principal; 2019-06-30)
PROC: 3E02340 Introduction of Influenza Vaccine into Muscle, Percutaneous Approach (ICD-10-PCS; 2019-06-30)
DX: I61.0 Nontraumatic intracerebral hemorrhage in hemisphere, subcortical (principal); G92 Toxic encephalopathy; I16.1 Hypertensive emergency; F20.0 Paranoid schizophrenia; I50.22 Chronic systolic (congestive) heart failure; G81.91 Hemiplegia, unspecified affecting right dominant side; N17.9 Acute kidney failure, unspecified; I13.0 Hypertensive heart and chronic kidney disease with heart failure and stage 1 through stage 4 chronic kidney disease, or unspecified chronic kidney disease; R40.2122 Coma scale, eyes open, to pain, at arrival to emergency department; F14.10 Cocaine abuse, uncomplicated; R40.2352 Coma scale, best motor response, localizes pain, at arrival to emergency department; R40.2242 Coma scale, best verbal response, confused conversation, at arrival to emergency department; F31.9 Bipolar disorder, unspecified; G89.29 Other chronic pain; M54.5 Low back pain; I25.10 Atherosclerotic heart disease of native coronary artery without angina pectoris; E78.5 Hyperlipidemia, unspecified; E11.22 Type 2 diabetes mellitus with diabetic chronic kidney disease; E66.01 Morbid (severe) obesity due to excess calories; R29.810 Facial weakness; F41.9 Anxiety disorder, unspecified; N18.3 Chronic kidney disease, stage 3 (moderate); Z95.5 Presence of coronary angioplasty implant and graft; Z79.899 Other long term (current) drug therapy; Z68.36 Body mass index [BMI] 36.0-36.9, adult; Z79.82 Long term (current) use of aspirin; Z79.84 Long term (current) use of oral hypoglycemic drugs; Z91.14 Patient's other noncompliance with medication regimen; Z79.02 Long term (current) use of antithrombotics/antiplatelets; Z23 Encounter for immunization
CPT/HCPCS: 36415; 36416; 36556; 51701; 70450; 74230; 80053; 80306; 81003; 81015; 82550; 83735; 83880; 84100; 85025; 90471; 90686; 90732; 93005; 96365; 96366; 96368; 96375; 99292; A4353; G0008; G0009; J0360; J2405; J7050

== ENCOUNTER 2020-08-21 23:26 | Observation (INO) | payer OTHER ==
[2020-08-22] MEDS ORDERED: Nitroglycerin 0.4 MG TAB (25 Tab Bottle) SL PRN (00:56)
[2020-08-22] MEDS ORDERED: Acetaminophen 650 MG Suppository PR PRN (00:58)
[2020-08-22] MEDS ORDERED: Acetaminophen 325 MG TAB PO PRN (00:58)
--- NOTE | 2020-08-22 01:40 | PDOC.HHP ---
Hospitalist HPI - History of Present Illness History of Present Illness: ADMISSION DATE: 08/22/2020 TIME OF ASSESSMENT: 0030 PRIMARY CARE PHYSICIAN: [facility] CHIEF COMPLAINT: Chest tightness and heavy menses HPI: This is a 55-year-old woman with a history of multiple MIs and strokes in the past who is minimally communicative at baseline and therefore history obtained from her sister. She was brought into the emergency department due to concerns for heavy vaginal bleeding since Thursday and chest tightness that started today. She was seen at [facility] where she had laboratory studies done that were notable for a troponin of 0.148. According to family she had a recent stress test 1 month ago at [facility] after presenting with chest pain. She is unable to give details regarding the pain due to being minimally communicative at baseline. She did tell her family that she was experiencing chest discomfort earlier today and at the moment states she has no chest pain. She was not noted to be diaphoretic or short of breath. Unclear how long the pain actually lasted. She has had issues with heavy menses and at that time required a blood transfusion as well. Due to history of CAD and CVAs she was advised to continue Plavix and aspirin with plans to have her undergo uterine ablation later this month. According to family the heavy menses has been ongoing since Thursday evening and has gradually worsened. He has been requiring frequent sanitary napkin changes approximately every hour today. When sitting on the commode she has passed several blood clots throughout the day. ED COURSE: At [facility] she had an EKG that was unremarkable. She received 1 L of normal saline. Underwent a pelvic exam and noted to have cervical polyps that were not friable and a moderate amount of dark blood in the vaginal canal. No active pooling with Valsalva. Laboratory studies showed a white cell count of 8.8, hemoglobin 9.7, hematocrit 30, platelets 253, neutrophils 72.4%. Sodium 144, potassium 4, BUN 29, creatinine 1.79, GFR 36. Glucose 128. LFTs normal. Initial troponin 0.146, second troponin 0.129. UA notable for large blood, greater than 300 protein and greater than 50 red blood cells. Otherwise negative. PAST MEDICAL HISTORY: 1. CAD 2. History of multiple TIA/CVAs 3. Hypertension 4. Diabetes mellitus type 2 5. Arthritis 6. Osteoporosis 7. Chronic low back pain 8. History of MIs 9. Hyperlipidemia 10. History of heavy menses requiring blood transfusion 11. Schizophrenia 12. Chronic systolic and diastolic heart failure 13. Bipolar disorder 14. History of intracranial hemorrhage of left thalamic region secondary to uncontrolled hypertension, June 2019 15. History of cocaine abuse PAST SURGICAL HISTORY: 1. Cardiac catheterization November 2016 2. 3. Cardiac stents x2 in 2014 SOCIAL HISTORY: Patient lives with her family. She is minimally demented kids have at baseline. She is able to mobilize with the help of a rolling walker. No tobacco use alcohol consumption or drug use. FAMILY HISTORY: Noncontributory ALLERGIES: No known drug allergy CURRENT MEDICATIONS: 1. Aspirin 81 mg p.o. 2. Coreg 12.5 mg p.o. daily 3. Bystolic 5 mg p.o. daily 4. Plavix 75 mg p.o. daily 5. Ferrous sulfate 325 mg p.o. 6. Lasix 40 mg p.o. daily 7. Isosorbide mononitrate ER 30 mg p.o. daily 8. Lisinopril 40 mg p.o. daily 9. Pantoprazole 40 mg p.o. daily 10. Escitalopram 20 mg p.o. daily 11. Hydralazine 100 mg p.o. daily - Exam General Appearance: NAD, awake alert General - other findings: VS: BP 153/66, HR 55, RR 18, O2 sat 99 % on room air, temp 98.2 Eye: PERRL, anicteric sclera ENT: normocephalic atraumatic, no oropharyngeal lesions Neck: supple, no lymphadenopathy Heart: RRR, normal peripheral pulses Respiratory: CTAB, no wheezes, no rales, no ronchi, normal chest expansion, no tachypnea Gastrointestinal: soft, non-tender, non-distended, normal bowel sounds, no guarding, no rigidity Extremities: no edema Skin: normal turgor, no lesions, no rashes Neurological: no new deficit Musculoskeletal: normal tone, normal strength, no muscle wasting Psychiatric: normal affect Psychiatric - other findings: minimally communicative at baseline, able to follow some commands Hospitalist Results - Labs Lab results: Troponin I 0.129 ng/mL (< 0.028) H 08/21/20 23:49 Hospitalist H&P A/P - Problem (1) Chest pain Code(s): R07.9 - CHEST PAIN, UNSPECIFIED Status: Acute Assessment and Plan: History of multiple MIs in the past. Recent normal stress test at [facility]. Pain free at present. Will continue to trend troponins. Cardiac monitoring. Obtain records from [facility] consult placed. Continue ASA. NPO at midnight. Check lipid panel with AM labs. (2) Heavy menstrual bleeding Code(s): N92.0 - EXCESSIVE AND FREQUENT MENSTRUATION WITH REGULAR CYCLE Status: Acute Assessment and Plan: Awaiting uterine ablation later this month. Hx of heavy menses before requiring PRBC transfusion. Repeat H/H and obtain T&S Transfuse if needed with 1 unit PRBCs. Blender Conveyor Operator Consult (3) History of coronary artery disease Code(s): Z86.79 - PERSONAL HISTORY OF OTHER DISEASES OF THE CIRCULATORY SYSTEM Status: Chronic Assessment and Plan: Resume home medications once verified. (4) History of multiple myocardial infarctions Code(s): I25.2 - OLD MYOCARDIAL INFARCTION Status: Chronic (5) DM2 (diabetes mellitus, type 2) Status: Chronic Qualifiers: Diabetes mellitus terminal gauger supervisor insulin use: with terminal gauger supervisor use Diabetes mellitus complication detail: with chronic kidney disease Chronic kidney disease stage: stage 2 (mild) Assessment and Plan: Monitor glucose (Accuchecks ACHS) Insulin sliding scale (6) History of intracranial hemorrhage Code(s): Z86.79 - PERSONAL HISTORY OF OTHER DISEASES OF THE CIRCULATORY SYSTEM Status: Chronic Assessment and Plan: Minimally communicative at baseline and with residual right sided weakness. PT/OT consulted as well as speech therapy (7) Depression Code(s): F32.9 - MAJOR DEPRESSIVE DISORDER, SINGLE EPISODE, UNSPECIFIED Status: Chronic Assessment and Plan: Resume home meds once verified. (8) Dyslipidemia Code(s): E78.5 - HYPERLIPIDEMIA, UNSPECIFIED Status: Chronic Assessment and Plan: Continue statin Check lipid panel with AM labs as mentioned (9) Obesity (BMI 30-39.9) Code(s): E66.9 - OBESITY, UNSPECIFIED Status: Chronic - Plan Plan: GI Prophylaxis: Famotidine. DVT Prophylaxis: Mechanical SCDs. Code Status: FULL Surrogate decision maker is her sister Genie Peace. Case discussed with attending who agrees with plan as above.
[2020-08-22] MEDS ORDERED: Dextrose 50% Abboject 50 ML SYRINGE SLOW IVP PRN (02:05)
[2020-08-22] MEDS ORDERED: Dextrose 5% in Water 1,000 ML IV PRN (02:05)
[2020-08-22] MEDS ORDERED: HumaLOG 300 UNITS/3 ML VIAL SC PRN (02:05)
[2020-08-22 03:28] LABS: #Eosinphils 0.1 thou/uL (0.0-0.7); #Lymphocytes 2.2 thou/uL (1.20-3.40); #Monocytes 0.7 thou/uL (0.11-0.59); #Neutrophils 4.5 thou/uL (1.40-6.50); %Basophils 0.4 % (0.0-1.0); %Eosinophils 1.1 % (0.0-10.0); %Lymphocytes 28.8 % (21.0-51.0); %Neutrophils 59.8 % (42.0-75.0); Hemoglobin 9.6 g/dL (12.0-16.0); Mean Corpuscular HGB CONC 31.7 g/dL (32.0-36.0); Mean Corpuscular Hemoglobin 28.5 pg (27.0-31.0); Mean Corpuscular Volume 89.7 fL (78.0-98.0); Mean Platelet Volume 7.7 fL (7.4-10.4); Platelet Count 251 thou/uL (130-400); Red Blood Cell (RBC) Count 3.37 mill/uL (4.20-5.40); White Blood Cell (WBC) Count 7.5 thou/uL (4.8-10.8)
[2020-08-22 03:49] LABS: Anion Gap 16 mmol/L (10-20); BUN (Urea Nitrogen) 28 mg/dL (9.8-20.1); Calc. Creatinine Clearance 0 mL/min (70-130); Calcium 9.4 mg/dL (7.8-10.44); Carbon Dioxide 21 mmol/L (22-29); Cardiac Risk 3.9 (Less than 4.5); Chloride 110 mmol/L (98-107); Cholesterol 133 mg/dl (< 200 Desired); Glucose 114 mg/dL (70-105); HDL Cholesterol 34 mg/dL (>60 Neg Risk); LDL Cholesterol, Calculated 82 mg/dL; Magnesium 1.9 mg/dL (1.6-2.6); Potassium 3.6 mmol/L (3.5-5.1); Sodium 143 mmol/L (136-145); Triglycerides 83 mg/dL (Less than 150)
[2020-08-22 04:20] LABS: Troponin I 0.123 ng/mL (< 0.028)
[2020-08-22 07:05] LABS: Troponin I 0.135 ng/mL (< 0.028)
[2020-08-22] MEDS ORDERED: Famotidine/PF 20 mg/2ml Vial ONE (07:47)
[2020-08-22] MEDS ORDERED: Aspirin Chewable 81 MG TAB ONE (07:47)
--- NOTE | 2020-08-22 08:20 | RAD ---
TWO VIEW CHEST: INDICATION: Chest pain and chest tightness. COMPARISON: 02/24/2019. FINDINGS: Mild cardiomegaly is stable. Lungs appear clear. No infiltrate or vascular congestion. No effusion . IMPRESSION: No acute lung process identified. POS: AGW
[2020-08-22] MEDS ORDERED: Aspirin Chewable 81 MG TAB PO SCH (09:00)
[2020-08-22] MEDS ORDERED: Famotidine/PF 20 mg/2ml Vial SLOW IVP SCH (09:00)
[2020-08-22] MEDS ORDERED: Enoxaparin Sodium 100 MG/ML SYRINGE SC SCH ×2 (09:30→21:00)
[2020-08-22] MEDS ORDERED: Enoxaparin Sodium 100 MG/ML SYRINGE ONE (09:56)
[2020-08-22] MEDS ORDERED: Amlodipine 5 MG TAB PO SCH (11:00)
[2020-08-22] MEDS ORDERED: hydrALAZINE 25 MG TAB PO SCH (11:00)
[2020-08-22] MEDS ORDERED: Amlodipine 5 MG TAB ONE (11:03)
[2020-08-22] MEDS ORDERED: hydrALAZINE 25 MG TAB ONE (11:05)
[2020-08-22 13:47] LABS: SARS-CoV-2 MS2 Positive; SARS-CoV-2 N Gene Negative; SARS-CoV-2 S Gene Negative; SARS-CoV-2 by NAA Not Detected (NotDetected); SARS-CoV-2 orf1ab Negative
[2020-08-22] MEDS ORDERED: hydrALAZINE 20 MG/ML VIAL SLOW IVP PRN (16:04)
[2020-08-22 16:10] VITALS: BMI 31.6
[2020-08-22] MEDS ORDERED: Enoxaparin Sodium 40 MG/0.4 ML SYRINGE SC SCH (21:00)
[2020-08-22] MEDS ORDERED: Carvedilol 25 MG TAB PO SCH (21:00)
[2020-08-22] MEDS: hydrALAZINE 25 MG TAB PO SCH (21:01)
[2020-08-22 21:53] LABS: Amphetamine Not Detected (NotDetected); Barbiturates Screen Not Detected (NotDetected); Benzodiazepine Screen Not Detected (NotDetected); Cocaine Metabolite Screen Not Detected (NotDetected); Medtox Control Line Valid? VALID (VALID); Medtox Reader # READER 4; Methadone Not Detected (NotDetected); Methamphetamine Not Detected (NotDetected); Opiate Screen Not Detected (NotDetected); Oxycodone Screen Not Detected (NotDetected); Phencyclidine (PCP) Not Detected (NotDetected); THC/Cannabinoid Screen Not Detected (NotDetected); Tricyclic Screen Not Detected (NotDetected)
--- NOTE | 2020-08-23 00:47 | CON ---
DATE OF CONSULTATION: 08/22/2020 REASON FOR CONSULTATION: Increased troponin level, hypertension, and coronary artery disease. HISTORY OF PRESENT ILLNESS: Ms. Glendy Banegas is a 55-year-old woman, who came to the hospital apparently today primarily due to heavy menses. While she was here, apparently, there was some consideration that she may be having some chest tightness. She is really not able to give much history due to previous strokes. It was noted that she had a slight increased troponin level. She recently apparently had a stress test at [facility] after presenting with chest pain, which apparently was unremarkable. The patient has a history of heavy menses. Pelvic exam reveals cervical polyps, moderate amount of dark blood in the vaginal canal. The patient's past history, she had underwent stent implantation at [facility]. She did undergo cardiac catheterization in 2017 here after presenting with chest pain and she was found to have no obstruction in any of the major epicardial vessels. She did have stenting done previously in a diagonal branch with a lesion in the branch of the diagonal. The vessels were large and somewhat aneurysmal, but no obstructions in any of the major epicardial vessels. PAST MEDICAL HISTORY: She has a history of intracranial hemorrhage, stroke due to uncontrolled hypertension as well as middle cerebral artery occlusion at some point in the past based on CT scan. MEDICATIONS: Snapshot at home. Apparently, she has taken, 1. Hydralazine. 2. Lisinopril. 3. Isosorbide. 4. Plavix. 5. Carvedilol. 6. Atorvastatin. PHYSICAL EXAMINATION: GENERAL: The patient has a quite marked expressive aphasia. VITAL SIGNS: Her blood pressure was high at 214/93, pulse is 60 to 70, sometimes 52 is recorded. LUNGS: Clear. CARDIAC: Normal S1, normal S2. ABDOMEN: Soft and nontender. EXTREMITIES: Warm and dry. No clubbing or cyanosis. There is no edema. PERTINENT LABORATORY DATA: Hemoglobin is 9.6, troponin 1.67, creatinine 1.67, GFR is 39. EKG did not show any acute changes. There was some sinus bradycardia on the monitor as well. ASSESSMENT: 1. Hypertension, uncontrolled. 2. Stage 3 renal failure. 3. Previous strokes. 4. History of substance abuse with positive cocaine scan in 2019. PLAN: 1. Add Procardia XL. 2. Continue other blood pressure medicines. 3. I will continue to follow with you. It looks like medical therapy is the most appropriate therapy at this point. Job ID: [id number]
[2020-08-23 08:46] LABS: Anion Gap 15 mmol/L (10-20); BUN (Urea Nitrogen) 25 mg/dL (9.8-20.1); Calc. Creatinine Clearance 65 mL/min (70-130); Calcium 9.3 mg/dL (7.8-10.44); Carbon Dioxide 21 mmol/L (22-29); Chloride 109 mmol/L (98-107); Glucose 102 mg/dL (70-105); Potassium 3.9 mmol/L (3.5-5.1); Sodium 141 mmol/L (136-145)
[2020-08-23 08:50] LABS: Mean Corpuscular HGB CONC 32.4 g/dL (32.0-36.0); Mean Corpuscular Hemoglobin 29.3 pg (27.0-31.0); Mean Corpuscular Volume 90.4 fL (78.0-98.0); Mean Platelet Volume 8.4 fL (7.4-10.4); Platelet Count 240 thou/uL (130-400); RBC Distribution Width 13.7 % (11.5-14.5); Red Blood Cell (RBC) Count 3.07 mill/uL (4.20-5.40); White Blood Cell (WBC) Count 5.7 thou/uL (4.8-10.8)
[2020-08-23] MEDS: hydrALAZINE 25 MG TAB PO SCH ×2 (09:13→20:28)
[2020-08-23] MEDS: metFORMIN 500 MG TAB PO SCH ×2 (09:13→17:38)
[2020-08-23] MEDS: Carvedilol 3.125 MG TAB PO SCH ×2 (09:13→20:27)
[2020-08-23] MEDS: Furosemide 40 MG TAB PO SCH (09:14)
[2020-08-23] MEDS: NIFEdipine XL 30 MG TAB PO SCH (09:14)
[2020-08-23] MEDS: Aspirin Chewable 81 MG TAB PO SCH (09:14)
[2020-08-23] MEDS: Escitalopram Oxalate 20 mg Tablet PO SCH (09:14)
[2020-08-23] MEDS: Lisinopril 20 MG TAB PO SCH ×2 (09:14→09:29)
[2020-08-23] MEDS: Clopidogrel Bisulfate 75 MG TAB PO SCH (09:14)
[2020-08-23] MEDS: Enoxaparin Sodium 40 MG/0.4 ML SYRINGE SC SCH (09:15)
[2020-08-23 09:41] LABS: Band 4 % (5-11); Lymphocytes 28 % (21-51); MDiff Complete? YES; Monocytes 10 % (0-10); Neutrophil 58 % (42-75); Platelet Morphology Comment Appears Adequate; Polychromasia SLIGHT = 2-3 cells (100X) (0-2/hpf)
[2020-08-23] MEDS: HumaLOG 300 UNITS/3 ML VIAL SC PRN (11:57)
--- NOTE | 2020-08-23 14:29 | PRG ---
DATE OF SERVICE: 08/23/2020 SUBJECTIVE: Ms. Banegas is doing better now. She has some low blood pressure earlier this afternoon, but apparently, she received Procardia XL last night again this morning and also received carvedilol 25 mg last night. Her usual dose was 3.125 mg twice a day. The patient otherwise is doing well. ASSESSMENT: 1. Hypertension, longstanding, somewhat labile. 2. Previous strokes. 3. Diabetes. 4. Increased troponin, probably demand ischemia. 5. Heavy menses. 6. Appears to be iron deficient. PLAN: 1. To check iron levels. 2. Adjust medications for blood pressure. Prior levels are very low consideration for intravenous iron while she is here. Then, she will go home tomorrow and follow up with her physicians at [facility]. Job ID: [id number]
[2020-08-23 15:30] LABS: Iron 56 ug/dL (50-170); Iron Binding Capacity, Total 279 mcg/dL (265-497)
--- NOTE | 2020-08-23 18:05 | PDOC.HOSPP ---
- Subjective Encounter Date: 08/23/20 Encounter Time: 10:30 Subjective: She is up in bed denies any complaints. - Objective Vital Signs & Weight: Vital Signs (12 hours) Temp Pulse Pulse Pulse Resp BP BP 08/23/20 15:00 97.7 F 60 18 08/23/20 12:30 111/59 L 08/23/20 11:45 98.3 F 56 L 18 08/23/20 09:50 64 72 124/75 08/23/20 09:14 60 08/23/20 09:13 60 08/23/20 07:15 98.2 F 60 16 BP BP Pulse Ox 08/23/20 15:00 128/69 100 08/23/20 12:30 08/23/20 11:45 87/53 L 98 08/23/20 09:50 131/66 08/23/20 09:14 08/23/20 09:13 08/23/20 07:15 156/69 H 100 Weight Weight 202 lb 1 oz I&O: 08/22/20 08/23/20 08/24/20 06:59 06:59 06:59 Intake Total 1 1200 Output Total 1 Balance 1 1199 Result Diagrams: 08/23/20 08:14 08/23/20 08:14 Additional Labs: Accuchecks 08/23/20 08/23/20 08/23/20 17:02 10:57 05:41 POC Glucose 105 H 198 H 102 H 08/22/20 21:03 POC Glucose 118 H Hospitalist ROS - Review of Systems Cardiovascular: denies: chest pain, palpitations, orthopnea, paroxysmal noc. dyspnea, edema, light headedness, other Gastrointestinal: denies: nausea, vomiting, abdominal pain, diarrhea, constipation, melena, hematochezia, other Genitourinary: denies: dysuria, frequency, incontinence, hematuria, retention, other - Medication Medications: Active Medications Generic Name Dose Route Start Last Admin Trade Name Freq PRN Reason Stop Dose Admin Aspirin 81 mg 08/23/20 09:00 08/23/20 09:14 Aspirin Chewable 81 Mg Tab PO 81 mg DAILY KIKI Administration Carvedilol 3.125 mg 08/23/20 09:00 08/23/20 09:13 Carvedilol 3.125 Mg Tab PO 3.125 mg BID KIKI Administration Clopidogrel Bisulfate 75 mg 08/23/20 09:00 08/23/20 09:14 Clopidogrel Bisulfate 75 Mg Tab PO 75 mg DAILY KIKI Administration Enoxaparin Sodium 40 mg 08/23/20 09:00 08/23/20 09:15 Enoxaparin Sodium 40 Mg/0.4 Ml Syringe SC 40 mg 0900 KIKI Administration Escitalopram Oxalate 20 mg 08/23/20 09:00 08/23/20 09:14 Escitalopram Oxalate 20 Mg Tablet PO 20 mg DAILY KIKI Administration Furosemide 40 mg 08/23/20 09:00 08/23/20 09:14 Furosemide 40 Mg Tab PO 40 mg DAILY KIKI Administration Hydralazine HCl 25 mg 08/22/20 21:00 08/23/20 09:13 Hydralazine 25 Mg Tab PO 25 mg BID KIKI Administration Hydralazine HCl 10 mg 08/22/20 16:04 08/22/20 17:16 Hydralazine 20 Mg/Ml Vial SLOW IVP 10 mg Q6H PRN Administration SBP > 180 Insulin Human Lispro 0 units 08/22/20 02:05 08/23/20 11:57 Humalog 300 Units/3 Ml Vial SC 2 units .MILD SLIDING SCALE PRN Administration Mild Correctional Scale Metformin HCl 1,000 mg 08/23/20 08:00 08/23/20 17:38 Metformin 500 Mg Tab PO 1,000 mg BID-WM KIKI Administration Nifedipine 30 mg 08/23/20 09:00 08/23/20 09:14 Nifedipine Xl 30 Mg Tab PO 30 mg DAILY KIKI Administration Pantoprazole Sodium 40 mg 08/23/20 09:00 08/23/20 09:13 Pantoprazole 40 Mg Tab PO 40 mg DAILY KIKI Administration Sodium Chloride 10 ml 08/22/20 09:00 08/23/20 09:15 Flush - Normal Saline 10 Ml Syringe IVF 10 ml Q12HR KIKI Administration - Exam Heart: negative: RRR, no murmur, no gallops, no rubs, normal peripheral pulses, irregular, diminshed peripheral pulses, murmur present, II/IV, III/IV Respiratory: negative: CTAB, no wheezes, no rales, no ronchi, normal chest expansion, no tachypnea, normal percussion, rales, rhonchi, tachypneic, wheezes Gastrointestinal: negative: soft, non-tender, non-distended, normal bowel sounds, no palpable masses, no hepatomegaly, no splenomegaly, no bruit, no guarding, no rigidity, tender to palpation, distended, diminished bowl sounds, voluntary guarding Extremities: negative: no cyanosis, no clubbing, no edema, 1+ LE edema, 2+ LE edema, clubbing Neurological - other findings: Patient has expressive aphasia Hosp A/P (1) Heavy menstrual bleeding Code(s): N92.0 - EXCESSIVE AND FREQUENT MENSTRUATION WITH REGULAR CYCLE Status: Acute (2) History of intracranial hemorrhage Code(s): Z86.79 - PERSONAL HISTORY OF OTHER DISEASES OF THE CIRCULATORY SYSTEM Status: Chronic (3) Chest pain Code(s): R07.9 - CHEST PAIN, UNSPECIFIED Status: Acute (4) Anxiety and depression Code(s): F41.9 - ANXIETY DISORDER, UNSPECIFIED; F32.9 - MAJOR DEPRESSIVE DISORDER, SINGLE EPISODE, UNSPECIFIED Status: Chronic (5) Coronary artery disease Code(s): I25.10 - ATHSCL HEART DISEASE OF [place] CORONARY ARTERY W/O ANG PCTRS Status: Chronic Qualifiers: Coronary Disease-Associated Artery/Lesion type: [place] artery [place] vs. transplanted heart: [place] heart Associated angina: without angina Qualified Code(s): I25.10 - Atherosclerotic heart disease of [place] coronary artery without angina pectoris (6) DM2 (diabetes mellitus, type 2) Status: Chronic Qualifiers: Diabetes mellitus long-term insulin use: with long-term use Diabetes mellitus complication detail: with chronic kidney disease Chronic kidney disease stage: stage 2 (mild) (7) Chronic kidney disease (CKD) Code(s): N18.9 - CHRONIC KIDNEY DISEASE, UNSPECIFIED Status: Acute Qualifiers: Chronic kidney disease stage: stage 3 (moderate) - Plan Patient's blood pressure was noted to be low today. Spoke with nursing staff to space out her blood pressure medications. Patient's H&H has been stable. She recently underwent a stress test at [facility]. Cardiology was consulted. We will continue to monitor. Possible discharge tomorrow.
[2020-08-23] MEDS ORDERED: Non-Formulary Item 1 EACH (Insulin Detemir [Levemir Flextouch] 100 UNIT/ML Insuln.Pen) SQ SCH (21:00)
[2020-08-23] MEDS ORDERED: Insulin Glargine 4 UNITS in Pre-Filled Syringe 1 EACH SC SCH (21:00)
[2020-08-23] MEDS ORDERED: Atorvastatin Calcium 40 MG TAB PO SCH (21:00)
[2020-08-24] MEDS ORDERED: Potassium Chloride 20 MEQ TAB PO SCH (08:00)
--- NOTE | 2020-08-24 08:26 | PRG ---
DATE OF SERVICE: 08/24/2020 SUBJECTIVE: Ms. Banegas is sleeping, awakens easily. No complaints. OBJECTIVE: VITAL SIGNS: Blood pressure 189/80, but it is very variable, earlier was 132/68, that was the last evening. LUNGS: Clear. CARDIAC: Normal S1, normal S2. ASSESSMENT: 1. Hypertension, labile, longstanding. 2. Coronary artery disease. 3. History of heavy periods and anemia. PLAN: Okay to go home. She can follow up with her physicians at [facility]. Interestingly, she was not iron deficient based on ferritin levels. Job ID: [id number]
[2020-08-24] MEDS: metFORMIN 500 MG TAB PO SCH (08:52)
[2020-08-24] MEDS: Furosemide 40 MG TAB PO SCH (08:53)
[2020-08-24] MEDS: Aspirin Chewable 81 MG TAB PO SCH (08:53)
[2020-08-24] MEDS: Escitalopram Oxalate 20 mg Tablet PO SCH (08:53)
[2020-08-24] MEDS: Clopidogrel Bisulfate 75 MG TAB PO SCH (08:53)
[2020-08-24] MEDS: Enoxaparin Sodium 40 MG/0.4 ML SYRINGE SC SCH (08:53)
[2020-08-24] MEDS: hydrALAZINE 25 MG TAB PO SCH (08:53)
[2020-08-24] MEDS: Carvedilol 3.125 MG TAB PO SCH (08:53)
[2020-08-24] MEDS: NIFEdipine XL 30 MG TAB PO SCH (08:54)
[2020-08-24] MEDS ORDERED: Lisinopril 20 MG TAB PO SCH (09:00)
[2020-08-24 10:37] LABS: #Eosinphils 0.1 thou/uL (0.0-0.7); #Lymphocytes 1.4 thou/uL (1.20-3.40); #Monocytes 0.6 thou/uL (0.11-0.59); #Neutrophils 4.2 thou/uL (1.40-6.50); %Basophils 0.5 % (0.0-1.0); %Eosinophils 1.9 % (0.0-10.0); %Lymphocytes 22.2 % (21.0-51.0); %Monocytes 9.5 % (0.0-10.0); Hemoglobin 8.1 g/dL (12.0-16.0); Mean Corpuscular HGB CONC 32.3 g/dL (32.0-36.0); Mean Corpuscular Hemoglobin 28.6 pg (27.0-31.0); Mean Corpuscular Volume 88.4 fL (78.0-98.0); Mean Platelet Volume 7.6 fL (7.4-10.4); Platelet Count 242 thou/uL (130-400); RBC Distribution Width 13.6 % (11.5-14.5); Red Blood Cell (RBC) Count 2.83 mill/uL (4.20-5.40); White Blood Cell (WBC) Count 6.3 thou/uL (4.8-10.8)
[2020-08-24 10:59] LABS: Anion Gap 16 mmol/L (10-20); BUN (Urea Nitrogen) 29 mg/dL (9.8-20.1); Calc. Creatinine Clearance 51 mL/min (70-130); Calcium 9.4 mg/dL (7.8-10.44); Carbon Dioxide 25 mmol/L (22-29); Chloride 105 mmol/L (98-107); Glucose 168 mg/dL (70-105); Potassium 3.8 mmol/L (3.5-5.1); Sodium 142 mmol/L (136-145)
[2020-08-24] MEDS: HumaLOG 300 UNITS/3 ML VIAL SC PRN (11:06)
[2020-08-24 11:50] VITALS: BP 131/65; TEMP 98.6
--- NOTE | 2020-08-24 18:05 | PDOC.DS.DS ---
Provider - Provider Date of Admission: 08/22/20 00:00 Date of Discharge: 08/24/20 Admitting Provider: Tristin Russell MD Consultations: Cardiology Primary Care Physician: PABLITO PARRA MD Course - Hospital Course Hospital Course: Patient is 55-year-old female who initially presented to the hospital with chest tightness and heavy menses. She was also noted to have mildly elevated troponins. She recently had a stress test done at [facility]. Cardiology was consulted. Medications were adjusted. She was noted to have significant hypertension and additional medications were added for better blood pressure control. She was asked to follow-up with [facility] as an outpatient. Her H&H was stable. Was asked to follow-up with her primary physician and cardiology has gotten white. Does also need to follow-up with [facility] given her significant amount of bleeding. - Labs Lab Results: 08/24/20 10:32 08/24/20 10:32 Abnormal Lab Results - Last 48 hrs 08/23/20 08:14: Chloride 109 H, Carbon Dioxide 21 L, BUN 25 H, Creatinine 1.44 H 08/23/20 08:14: RBC 3.07 L, Hgb 9.0 L, Hct 27.7 L, Band [place]uts % (Manual) 4 L 08/24/20 10:32: BUN 29 H, Creatinine 1.82 H 08/24/20 10:32: RBC 2.83 L, Hgb 8.1 L, Hct 25.0 L, Monocytes # 0.6 H - Physical Exam Vitals: Vital Signs (12 hours) Temp Pulse Resp BP BP Pulse Ox 08/24/20 11:49 98.6 F 62 18 131/65 100 08/24/20 10:21 62 124/63 08/24/20 08:54 64 111/59 L 08/24/20 08:53 64 08/24/20 07:59 98.3 F 64 18 189/80 H 100 Weight Weight 202 lb 1 oz Physical Exam: The patient was seen and examined on the day of discharge. Problem - Problem (1) Heavy menstrual bleeding Code(s): N92.0 - EXCESSIVE AND FREQUENT MENSTRUATION WITH REGULAR CYCLE Status: Acute (2) History of intracranial hemorrhage Code(s): Z86.79 - PERSONAL HISTORY OF OTHER DISEASES OF THE CIRCULATORY SYSTEM Status: Chronic (3) Chest pain Code(s): R07.9 - CHEST PAIN, UNSPECIFIED Status: Acute (4) Anxiety and depression Code(s): F41.9 - ANXIETY DISORDER, UNSPECIFIED; F32.9 - MAJOR DEPRESSIVE DISORDER, SINGLE EPISODE, UNSPECIFIED Status: Chronic (5) Coronary artery disease Code(s): I25.10 - ATHSCL HEART DISEASE OF [place] CORONARY ARTERY W/O ANG PCTRS Status: Chronic Qualifiers: Coronary Disease-Associated Artery/Lesion type: [place] artery [place] vs. transplanted heart: [place] heart Associated angina: without angina Qualified Code(s): I25.10 - Atherosclerotic heart disease of [place] coronary artery without angina pectoris (6) DM2 (diabetes mellitus, type 2) Status: Chronic Qualifiers: Diabetes mellitus prison insulin use: with prison use Diabetes mellitus complication detail: with chronic kidney disease Chronic kidney disease stage: stage 2 (mild) (7) Chronic kidney disease (CKD) Code(s): N18.9 - CHRONIC KIDNEY DISEASE, UNSPECIFIED Status: Acute Qualifiers: Chronic kidney disease stage: stage 3 (moderate) Plan - Discharge Medications Prescriptions: NIFEdipine [Procardia XL] 30 mg PO HS #30 tab Home Medications: Medication Instructions Recorded Confirmed Type Furosemide [Lasix] 40 mg PO DAILY 06/29/19 08/22/20 History hydrALAZINE [Apresoline] 100 mg PO TID 06/29/19 08/22/20 History Aspirin [Rayo Chewable Aspirin] 81 mg PO DAILY 08/22/20 08/22/20 History Atorvastatin Calcium [Lipitor] 80 mg PO HS 08/22/20 08/22/20 History Carvedilol [Coreg] 3.125 mg PO BID 08/22/20 08/22/20 History Clopidogrel Bisulfate [Clopidogrel] 75 mg PO DAILY 08/22/20 08/22/20 History Escitalopram Oxalate 30 mg PO DAILY 08/22/20 08/22/20 History Insulin Detemir [Levemir Flextouch] 4 unit SQ HS 08/22/20 08/22/20 History Lisinopril [Zestril] 40 mg PO DAILY 08/22/20 08/22/20 History Pantoprazole [Protonix] 40 mg PO DAILY 08/22/20 08/22/20 History Potassium Chloride [K-Dur] 20 meq PO DAILY 08/22/20 08/22/20 History QUEtiapine Fumarate [Seroquel] 50 mg PO HS 08/22/20 08/22/20 History metFORMIN [Glucophage] 1,000 mg PO BID-WM 08/22/20 08/22/20 History Isosorbide Mononitrate [Isosorbide 90 mg PO DAILY #0 08/24/20 08/22/20 Rx Mononitrate ER] NIFEdipine [Procardia XL] 30 mg PO HS #30 tab 08/24/20 Rx Allergies: No Known Allergies Allergy (Verified 12/10/19 13:38) - Discharge Instructions Discharge Instructions:: please do not take all your blood pressure medications at once. please space it out. Activity:: Activity as Tolerated Nourishment:: Heart Healthy Diet - Follow up Plan Referrals: PABLITO PARRA MD [Primary Care Provider] - 7 Days Disposition: HOME Quality - Care Measures CORE MEASURES:: N/A
== END 2020-08-24 13:52 | disposition home or self-care (01) ==
LOC: ERS 23:26 → ERHOLD 08-22 → 2SE 08-22 15:46
PROVIDERS: ADMIT Internal Medicine; ATTEND Internal Medicine
DX: R07.89 Other chest pain (principal); N84.1 Polyp of cervix uteri; F41.9 Anxiety disorder, unspecified; F31.9 Bipolar disorder, unspecified; F20.9 Schizophrenia, unspecified; I13.0 Hypertensive heart and chronic kidney disease with heart failure and stage 1 through stage 4 chronic kidney disease, or unspecified chronic kidney disease; E11.22 Type 2 diabetes mellitus with diabetic chronic kidney disease; N18.30 Chronic kidney disease, stage 3 unspecified; I50.42 Chronic combined systolic (congestive) and diastolic (congestive) heart failure; I25.10 Atherosclerotic heart disease of native coronary artery without angina pectoris; D64.9 Anemia, unspecified; M81.0 Age-related osteoporosis without current pathological fracture; I25.2 Old myocardial infarction; E78.5 Hyperlipidemia, unspecified; E66.9 Obesity, unspecified; Z68.31 Body mass index [BMI] 31.0-31.9, adult; Z79.02 Long term (current) use of antithrombotics/antiplatelets; Z79.4 Long term (current) use of insulin; Z79.82 Long term (current) use of aspirin; Z79.899 Other long term (current) drug therapy; Z86.73 Personal history of transient ischemic attack (TIA), and cerebral infarction without residual deficits; Z95.5 Presence of coronary angioplasty implant and graft; Z20.828 Contact with and (suspected) exposure to other viral communicable diseases
CPT/HCPCS: 36415; 36416; 71046; 80048; 80061; 80306; 82728; 83540; 83550; 83735; 84484; 85025; 86850; 86900; 86901; 87635; 96372; 96374; 96375; 99285; G0378; J0360; J1650; J1815; S0028; U0003

== ENCOUNTER 2021-09-15 18:21 | Observation (INO) | payer OTHER ==
[2021-09-15] MEDS ORDERED: Ondansetron PF 4 MG/2 ML Vial IVP PRN (23:43)
[2021-09-15] MEDS ORDERED: Acetaminophen 325 MG TAB PO PRN (23:43)
[2021-09-15] MEDS ORDERED: Dextrose 5% in Water 1,000 ML IV PRN (23:45)
[2021-09-15] MEDS ORDERED: HumaLOG 300 UNITS/3 ML VIAL SC PRN ×2 (23:45)
[2021-09-15] MEDS ORDERED: Dextrose 50% Abboject 50 ML SYRINGE SLOW IVP PRN (23:45)
[2021-09-15] MEDS ORDERED: Labetalol HCl 100 MG/20 ML VIAL SLOW IVP SCH (23:59)
[2021-09-16 01:27] LABS: Troponin I 0.077 ng/mL (< 0.028)
[2021-09-16 04:07] VITALS: BMI 36.0
[2021-09-16 04:54] LABS: #Eosinphils 0.1 thou/uL (0.0-0.7); #Monocytes 0.5 thou/uL (0.11-0.59); #Neutrophils 3.8 thou/uL (1.40-6.50); %Basophils 0.3 % (0.0-1.0); %Eosinophils 1.6 % (0.0-10.0); %Lymphocytes 31.1 % (21.0-51.0); %Monocytes 7.9 % (0.0-10.0); %Neutrophils 59.1 % (42.0-75.0); Hemoglobin 11.3 g/dL (12.0-16.0); Mean Corpuscular HGB CONC 32.4 g/dL (32.0-36.0); Mean Corpuscular Hemoglobin 28.6 pg (27.0-31.0); Mean Corpuscular Volume 88.1 fL (78.0-98.0); Mean Platelet Volume 7.3 fL (7.4-10.4); Platelet Count 283 thou/uL (130-400); RBC Distribution Width 12.5 % (11.5-14.5); Red Blood Cell (RBC) Count 3.96 mill/uL (4.20-5.40); White Blood Cell (WBC) Count 6.4 thou/uL (4.8-10.8)
[2021-09-16 05:16] LABS: Anion Gap 10 mmol/L (10-20); BUN (Urea Nitrogen) 15 mg/dL (9.8-20.1); Calc. Creatinine Clearance 83 mL/min (70-130); Calcium 9.9 mg/dL (7.8-10.44); Carbon Dioxide 29 mmol/L (22-29); Chloride 107 mmol/L (98-107); Glucose 163 mg/dL (70-105); Potassium 3.9 mmol/L (3.5-5.1); Sodium 142 mmol/L (136-145)
[2021-09-16] MEDS: hydrALAZINE 20 MG/ML VIAL SLOW IVP PRN (06:11)
[2021-09-16 06:50] LABS: Amphetamine Not Detected (NotDetected); Barbiturates Screen Not Detected (NotDetected); Benzodiazepine Screen Not Detected (NotDetected); Cocaine Metabolite Screen Not Detected (NotDetected); Methadone Not Detected (NotDetected); Methamphetamine Not Detected (NotDetected); Opiate Screen Not Detected (NotDetected); Oxycodone Screen Not Detected (NotDetected); Phencyclidine (PCP) Not Detected (NotDetected); THC/Cannabinoid Screen Not Detected (NotDetected); Tricyclic Screen Not Detected (NotDetected)
[2021-09-16] MEDS: Clopidogrel Bisulfate 75 MG TAB PO SCH (08:20)
[2021-09-16] MEDS: Carvedilol 3.125 MG TAB PO SCH ×2 (08:21→15:54)
[2021-09-16] MEDS: Furosemide 40 MG TAB PO SCH (08:21)
[2021-09-16] MEDS: hydrALAZINE 25 MG TAB PO SCH ×3 (08:22→21:04)
[2021-09-16] MEDS: Aspirin Chewable 81 MG TAB PO SCH (08:22)
[2021-09-16] MEDS: Escitalopram Oxalate 20 mg Tablet PO SCH (08:22)
[2021-09-16] MEDS: Lisinopril 2.5 MG TAB PO SCH (08:22)
[2021-09-16] MEDS ORDERED: Atorvastatin Calcium 40 MG TAB PO SCH (21:00)
[2021-09-16] MEDS ORDERED: NIFEdipine XL 60 MG TAB PO SCH (21:00)
[2021-09-16] MEDS ORDERED: Lantus 1000 UNITS/10 ML VIAL SC SCH (21:00)
[2021-09-17] MEDS: hydrALAZINE 20 MG/ML VIAL SLOW IVP PRN (00:06)
[2021-09-17 07:20] LABS: #Eosinphils 0.1 thou/uL (0.0-0.7); #Lymphocytes 1.8 thou/uL (1.20-3.40); #Monocytes 0.7 thou/uL (0.11-0.59); #Neutrophils 3.7 thou/uL (1.40-6.50); %Eosinophils 2.2 % (0.0-10.0); %Monocytes 10.9 % (0.0-10.0); %Neutrophils 58.9 % (42.0-75.0); Hemoglobin 11.4 g/dL (12.0-16.0); Mean Corpuscular HGB CONC 31.3 g/dL (32.0-36.0); Mean Corpuscular Hemoglobin 27.1 pg (27.0-31.0); Mean Corpuscular Volume 86.6 fL (78.0-98.0); Mean Platelet Volume 7.3 fL (7.4-10.4); Platelet Count 263 thou/uL (130-400); RBC Distribution Width 12.6 % (11.5-14.5); Red Blood Cell (RBC) Count 4.21 mill/uL (4.20-5.40); White Blood Cell (WBC) Count 6.3 thou/uL (4.8-10.8)
[2021-09-17 07:27] LABS: Chloride 104 mmol/L (98-107)
[2021-09-17 07:28] LABS: Calcium 9.8 mg/dL (7.8-10.44); Sodium 140 mmol/L (136-145)
[2021-09-17 07:29] LABS: Glucose 138 mg/dL (70-105)
[2021-09-17 07:30] LABS: Anion Gap 10 mmol/L (10-20); Carbon Dioxide 30 mmol/L (22-29)
[2021-09-17 07:32] LABS: Calc. Creatinine Clearance 77 mL/min (70-130)
[2021-09-17 07:33] LABS: BUN (Urea Nitrogen) 19 mg/dL (9.8-20.1)
[2021-09-17] MEDS: hydrALAZINE 25 MG TAB PO SCH ×2 (08:50→14:21)
[2021-09-17] MEDS: Clopidogrel Bisulfate 75 MG TAB PO SCH (08:50)
[2021-09-17] MEDS: Lisinopril 2.5 MG TAB PO SCH (08:50)
[2021-09-17] MEDS: Furosemide 40 MG TAB PO SCH (08:50)
[2021-09-17] MEDS: Escitalopram Oxalate 20 mg Tablet PO SCH (08:50)
[2021-09-17] MEDS: Aspirin Chewable 81 MG TAB PO SCH (08:50)
[2021-09-17] MEDS: Carvedilol 3.125 MG TAB PO SCH ×2 (08:50→16:44)
[2021-09-17 16:02] VITALS: BP 126/58; TEMP 98.8
== END 2021-09-17 17:45 | disposition home or self-care (01) ==
LOC: 2SW 18:21
PROVIDERS: ADMIT Family Medicine; ATTEND Internal Medicine
DX: I16.0 Hypertensive urgency (principal); R77.8 Other specified abnormalities of plasma proteins; I13.0 Hypertensive heart and chronic kidney disease with heart failure and stage 1 through stage 4 chronic kidney disease, or unspecified chronic kidney disease; E11.22 Type 2 diabetes mellitus with diabetic chronic kidney disease; N18.30 Chronic kidney disease, stage 3 unspecified; I50.42 Chronic combined systolic (congestive) and diastolic (congestive) heart failure; I25.10 Atherosclerotic heart disease of native coronary artery without angina pectoris; E78.5 Hyperlipidemia, unspecified; M19.90 Unspecified osteoarthritis, unspecified site; M81.0 Age-related osteoporosis without current pathological fracture; G89.29 Other chronic pain; M54.50 Low back pain, unspecified; Z86.73 Personal history of transient ischemic attack (TIA), and cerebral infarction without residual deficits; Z79.02 Long term (current) use of antithrombotics/antiplatelets; Z79.4 Long term (current) use of insulin; Z79.82 Long term (current) use of aspirin; Z79.899 Other long term (current) drug therapy; Z88.5 Allergy status to narcotic agent
CPT/HCPCS: 36415; 36416; 80048; 80306; 85025; 96374; 96375; 96376; G0378; J0360

== ENCOUNTER 2021-10-15 18:31 | Inpatient (IN) | payer OTHER ==
[2021-10-15] MEDS ORDERED: Ondansetron PF 4 MG/2 ML Vial IVP PRN (22:36)
[2021-10-15] MEDS ORDERED: Acetaminophen 325 MG TAB PO PRN (22:36)
[2021-10-15] MEDS ORDERED: Dextrose 50% Abboject 50 ML SYRINGE SLOW IVP PRN (22:40)
[2021-10-15] MEDS ORDERED: Dextrose 5% in Water 1,000 ML IV PRN (22:40)
[2021-10-15] MEDS ORDERED: HumaLOG 300 UNITS/3 ML VIAL SC PRN ×2 (22:40)
[2021-10-16 01:58] VITALS: BMI 33.7
[2021-10-16] MEDS: cefTRIAXone\\ROCEPHIN 1 GM in Sodium Chloride 0.9% 100 ML IVPB SCH (04:08)
[2021-10-16 05:43] LABS: #Eosinphils 0.1 thou/uL (0.0-0.7); #Lymphocytes 1.6 thou/uL (1.20-3.40); #Monocytes 0.5 thou/uL (0.11-0.59); #Neutrophils 1.7 thou/uL (1.40-6.50); %Eosinophils 3.2 % (0.0-10.0); %Lymphocytes 40.4 % (21.0-51.0); %Monocytes 12.5 % (0.0-10.0); %Neutrophils 43.1 % (42.0-75.0); Hemoglobin 10.6 g/dL (12.0-16.0); Mean Corpuscular HGB CONC 31.3 g/dL (32.0-36.0); Mean Corpuscular Hemoglobin 27.3 pg (27.0-31.0); Mean Corpuscular Volume 87.4 fL (78.0-98.0); Mean Platelet Volume 7.4 fL (7.4-10.4); Platelet Count 247 thou/uL (130-400); RBC Distribution Width 12.7 % (11.5-14.5); Red Blood Cell (RBC) Count 3.89 mill/uL (4.20-5.40)
[2021-10-16 06:07] LABS: BUN (Urea Nitrogen) 16 mg/dL (9.8-20.1); Calc. Creatinine Clearance 84 mL/min (70-130); Carbon Dioxide 26 mmol/L (22-29); Glucose 113 mg/dL (70-105); Magnesium 1.7 mg/dL (1.6-2.6)
[2021-10-16 06:15] LABS: Anion Gap 14 mmol/L (10-20); Chloride 106 mmol/L (98-107); Potassium 3.5 mmol/L (3.5-5.1); Sodium 143 mmol/L (136-145)
[2021-10-16] MEDS: Heparin 5,000 UNITS/ML VIAL SC SCH ×2 (10:36→20:41)
[2021-10-16] MEDS: levETIRAcetam in NS 500 MG in Premix Bag 1 BAG IVPB SCH ×2 (10:36→20:42)
[2021-10-16] MEDS: NIFEdipine XL 60 MG TAB PO SCH (21:06)
[2021-10-17] MEDS: cefTRIAXone\\ROCEPHIN 1 GM in Sodium Chloride 0.9% 100 ML IVPB SCH (02:56)
[2021-10-17 06:05] LABS: #Eosinphils 0.1 thou/uL (0.0-0.7); #Lymphocytes 1.9 thou/uL (1.20-3.40); #Monocytes 0.5 thou/uL (0.11-0.59); %Basophils 0.5 % (0.0-1.0); %Lymphocytes 40.6 % (21.0-51.0); %Monocytes 11.5 % (0.0-10.0); %Neutrophils 44.4 % (42.0-75.0); Mean Corpuscular HGB CONC 30.9 g/dL (32.0-36.0); Mean Corpuscular Hemoglobin 27.3 pg (27.0-31.0); Mean Corpuscular Volume 88.2 fL (78.0-98.0); Mean Platelet Volume 7.7 fL (7.4-10.4); Platelet Count 247 thou/uL (130-400); RBC Distribution Width 12.9 % (11.5-14.5); Red Blood Cell (RBC) Count 3.67 mill/uL (4.20-5.40); White Blood Cell (WBC) Count 4.6 thou/uL (4.8-10.8)
[2021-10-17 06:28] LABS: Anion Gap 13 mmol/L (10-20); BUN (Urea Nitrogen) 20 mg/dL (9.8-20.1); Calc. Creatinine Clearance 82 mL/min (70-130); Calcium 9.1 mg/dL (7.8-10.44); Carbon Dioxide 27 mmol/L (22-29); Chloride 103 mmol/L (98-107); Glucose 105 mg/dL (70-105); Magnesium 1.8 mg/dL (1.6-2.6); Potassium 3.6 mmol/L (3.5-5.1); Sodium 139 mmol/L (136-145)
[2021-10-17] MEDS: Heparin 5,000 UNITS/ML VIAL SC SCH ×2 (09:24→21:36)
[2021-10-17] MEDS: Carvedilol 3.125 MG TAB PO SCH ×2 (09:25→17:15)
[2021-10-17] MEDS: levETIRAcetam in NS 500 MG in Premix Bag 1 BAG IVPB SCH ×2 (09:25→21:36)
[2021-10-17] MEDS: Cefdinir 300 MG CAP PO SCH (21:35)
[2021-10-17] MEDS: NIFEdipine XL 60 MG TAB PO SCH (21:35)
[2021-10-17] MEDS: hydrALAZINE 25 MG TAB PO SCH (21:36)
[2021-10-18 05:42] LABS: #Eosinphils 0.2 thou/uL (0.0-0.7); #Monocytes 0.6 thou/uL (0.11-0.59); #Neutrophils 2.4 thou/uL (1.40-6.50); %Basophils 0.7 % (0.0-1.0); %Eosinophils 3.2 % (0.0-10.0); %Lymphocytes 37.2 % (21.0-51.0); %Monocytes 12.2 % (0.0-10.0); %Neutrophils 46.7 % (42.0-75.0); Hemoglobin 10.3 g/dL (12.0-16.0); Mean Corpuscular Hemoglobin 27.6 pg (27.0-31.0); Mean Corpuscular Volume 86.1 fL (78.0-98.0); Mean Platelet Volume 7.3 fL (7.4-10.4); Platelet Count 254 thou/uL (130-400); RBC Distribution Width 12.7 % (11.5-14.5); Red Blood Cell (RBC) Count 3.76 mill/uL (4.20-5.40); White Blood Cell (WBC) Count 5.2 thou/uL (4.8-10.8)
[2021-10-18 06:03] LABS: Anion Gap 11 mmol/L (10-20); BUN (Urea Nitrogen) 19 mg/dL (9.8-20.1); Calc. Creatinine Clearance 86 mL/min (70-130); Calcium 9.2 mg/dL (7.8-10.44); Carbon Dioxide 28 mmol/L (22-29); Chloride 105 mmol/L (98-107); Glucose 96 mg/dL (70-105); Magnesium 2.7 mg/dL (1.6-2.6); Potassium 3.8 mmol/L (3.5-5.1); Sodium 140 mmol/L (136-145)
[2021-10-18 08:27] VITALS: TEMP 98.6
[2021-10-18] MEDS ORDERED: levETIRAcetam 500 MG TAB PO SCH (09:00)
[2021-10-18] MEDS ORDERED: Lisinopril 2.5 MG TAB PO SCH (09:00)
[2021-10-18] MEDS: hydrALAZINE 25 MG TAB PO SCH (09:12)
[2021-10-18] MEDS: Cefdinir 300 MG CAP PO SCH (09:13)
[2021-10-18] MEDS: Carvedilol 3.125 MG TAB PO SCH (09:13)
[2021-10-18] MEDS: Heparin 5,000 UNITS/ML VIAL SC SCH (09:13)
[2021-10-18 12:12] LABS: Free T4 (Free Thyroxine) 1.02 ng/dL (0.70-1.48)
[2021-10-18 12:29] VITALS: BP 135/78
== END 2021-10-18 14:21 | disposition home or self-care (01) | DRG 101 ==
LOC: NEURO 19:56 → INTOOBSV 19:56 → OBSVTOIN 10-17 12:19
PROVIDERS: ADMIT Internal Medicine; ATTEND Internal Medicine
PROC: 4A10X4Z Monitoring of Central Nervous Electrical Activity, External Approach (ICD-10-PCS; principal; 2021-10-16)
DX: R56.9 Unspecified convulsions (principal); I50.42 Chronic combined systolic (congestive) and diastolic (congestive) heart failure; I13.0 Hypertensive heart and chronic kidney disease with heart failure and stage 1 through stage 4 chronic kidney disease, or unspecified chronic kidney disease; N39.0 Urinary tract infection, site not specified; N18.30 Chronic kidney disease, stage 3 unspecified; E11.22 Type 2 diabetes mellitus with diabetic chronic kidney disease; I25.10 Atherosclerotic heart disease of native coronary artery without angina pectoris; M19.90 Unspecified osteoarthritis, unspecified site; M81.0 Age-related osteoporosis without current pathological fracture; G89.29 Other chronic pain; F20.9 Schizophrenia, unspecified; F31.9 Bipolar disorder, unspecified; R77.8 Other specified abnormalities of plasma proteins; J20.9 Acute bronchitis, unspecified; E66.9 Obesity, unspecified; B96.20 Unspecified Escherichia coli [E. coli] as the cause of diseases classified elsewhere; Z68.33 Body mass index [BMI] 33.0-33.9, adult; Z79.4 Long term (current) use of insulin; Z79.82 Long term (current) use of aspirin; Z86.73 Personal history of transient ischemic attack (TIA), and cerebral infarction without residual deficits; Z88.5 Allergy status to narcotic agent; Z79.899 Other long term (current) drug therapy; Z95.5 Presence of coronary angioplasty implant and graft
CPT/HCPCS: 36415; 36416; 70551; 71045; 80048; 83735; 84439; 84443; 84481; 85025; 93005; 93010; 94640; 95816; 95819; 95957; J0696; J1644; J1815; J1953; J3490; J7620

== ENCOUNTER 2022-05-04 20:57 | Inpatient (IN) | payer OTHER ==
[~2022-05-04 20:57] MED LIST: Iopamidol-370 76% 500 ML 1 ML ONE
[2022-05-04 21:22] LABS: #Eosinphils 0.1 thou/uL (0.0-0.7); #Monocytes 0.8 thou/uL (0.11-0.59); #Neutrophils 3.1 thou/uL (1.40-6.50); %Basophils 0.7 % (0.0-1.0); %Eosinophils 1.6 % (0.0-10.0); %Lymphocytes 32.5 % (21.0-51.0); %Monocytes 13.6 % (0.0-10.0); %Neutrophils 51.6 % (42.0-75.0); Hemoglobin 12.6 g/dL (12.0-16.0); Mean Corpuscular HGB CONC 32.3 g/dL (32.0-36.0); Mean Corpuscular Hemoglobin 28.2 pg (27.0-31.0); Mean Corpuscular Volume 87.2 fL (78.0-98.0); Mean Platelet Volume 9.7 fL (7.4-10.4); Platelet Count 219 thou/uL (130-400); RBC Distribution Width 12.7 % (11.5-14.5); Red Blood Cell (RBC) Count 4.47 mill/uL (4.20-5.40); White Blood Cell (WBC) Count 6.1 thou/uL (4.8-10.8)
[2022-05-04 21:41] LABS: PTT 30.8 sec (22.9-36.1); Prothrombin Time 12.7 sec (12.0-14.7)
[2022-05-04 21:46] LABS: ALT (SGPT) 12 U/L (8-55); AST (SGOT) 19 U/L (5-34); Albumin 4.2 g/dL (3.5-5.0); Alkaline Phosphatase 115 U/L (40-110); Anion Gap 14 mmol/L (10-20); BUN (Urea Nitrogen) 19 mg/dL (9.8-20.1); Bilirubin, Total 0.4 mg/dL (0.2-1.2); CK (CPK) 238 U/L (29-168); Calc. Creatinine Clearance 0 mL/min (70-130); Calcium 9.5 mg/dL (7.8-10.44); Carbon Dioxide 26 mmol/L (22-29); Chloride 106 mmol/L (98-107); Estimated GFR 49; Globulin 4.3 g/dL (2.4-3.5); Glucose 136 mg/dL (70-105); Potassium 4.2 mmol/L (3.5-5.1); Protein, Total 8.5 g/dL (6.0-8.3); Sodium 142 mmol/L (136-145)
[2022-05-04 22:06] LABS: CKMB 4.3 ng/mL (0-6.6)
[2022-05-04] MEDS ORDERED: Aspirin Chewable 81 MG TAB ONE (22:18)
[2022-05-04] MEDS ORDERED: Heparin 10,000 UNITS/ 10 ML VIAL ONE ×2 (22:37→22:59)
[2022-05-04] MEDS ORDERED: Labetalol HCl 100 MG/20 ML VIAL ONE (22:37)
[2022-05-04] MEDS ORDERED: Heparin 25,000 units/D5W 500 ML ONE (22:38)
[2022-05-04] MEDS ORDERED: hydrALAZINE 20 MG/ML VIAL ONE (22:49)
[2022-05-05] MEDS ORDERED: hydrALAZINE 20 MG/ML VIAL ONE (00:57)
[2022-05-05 01:51] LABS: Troponin I 0.131 ng/mL (< 0.028)
[2022-05-05 03:45] VITALS: BMI 35.6
[2022-05-05] MEDS ORDERED: hydrALAZINE 20 MG/ML VIAL SLOW IVP PRN (04:12)
[2022-05-05] MEDS ORDERED: Dextrose 5% in Water 1,000 ML IV PRN (04:43)
[2022-05-05] MEDS ORDERED: Acetaminophen 325 MG TAB PO PRN (04:43)
[2022-05-05] MEDS ORDERED: Ondansetron PF 4 MG/2 ML Vial IVP PRN (04:43)
[2022-05-05] MEDS ORDERED: Acetaminophen 650 MG Suppository PR PRN (04:43)
[2022-05-05] MEDS ORDERED: Ondansetron ODT 4 MG TAB PO PRN (04:43)
[2022-05-05] MEDS ORDERED: HumaLOG 300 UNITS/3 ML VIAL SC PRN (04:43)
[2022-05-05] MEDS ORDERED: Dextrose 50% Abboject 50 ML SYRINGE SLOW IVP PRN (04:43)
[2022-05-05] MEDS ORDERED: Aspirin 81 mg Enteric Coated Tablet PO SCH (05:15)
[2022-05-05 05:29] LABS: #Eosinphils 0.1 thou/uL (0.0-0.7); #Lymphocytes 2.3 thou/uL (1.20-3.40); #Monocytes 0.6 thou/uL (0.11-0.59); %Basophils 0.6 % (0.0-1.0); %Eosinophils 1.2 % (0.0-10.0); %Lymphocytes 33.1 % (21.0-51.0); %Monocytes 7.9 % (0.0-10.0); %Neutrophils 57.3 % (42.0-75.0); Hemoglobin 11.7 g/dL (12.0-16.0); Mean Corpuscular HGB CONC 32.1 g/dL (32.0-36.0); Mean Corpuscular Hemoglobin 28.1 pg (27.0-31.0); Mean Corpuscular Volume 87.4 fL (78.0-98.0); Mean Platelet Volume 7.9 fL (7.4-10.4); Platelet Count 259 thou/uL (130-400); RBC Distribution Width 12.5 % (11.5-14.5); Red Blood Cell (RBC) Count 4.16 mill/uL (4.20-5.40)
[2022-05-05 05:43] LABS: ALT (SGPT) 10 U/L (8-55); AST (SGOT) 14 U/L (5-34); Albumin 3.9 g/dL (3.5-5.0); Alkaline Phosphatase 108 U/L (40-110); Anion Gap 13 mmol/L (10-20); BUN (Urea Nitrogen) 15 mg/dL (9.8-20.1); Bilirubin, Total 0.5 mg/dL (0.2-1.2); Calc. Creatinine Clearance 96 mL/min (70-130); Calcium 9.3 mg/dL (7.8-10.44); Carbon Dioxide 27 mmol/L (22-29); Chloride 105 mmol/L (98-107); Estimated GFR 59; Globulin 3.8 g/dL (2.4-3.5); Glucose 147 mg/dL (70-105); Potassium 3.5 mmol/L (3.5-5.1); Protein, Total 7.7 g/dL (6.0-8.3); Sodium 141 mmol/L (136-145)
[2022-05-05 05:46] LABS: Troponin I 0.151 ng/mL (< 0.028)
[2022-05-05] MEDS: Aspirin 81 mg Enteric Coated Tablet PO SCH (09:49)
[2022-05-05] MEDS: Enoxaparin Sodium 40 MG/0.4 ML SYRINGE SC SCH (09:49)
[2022-05-05] MEDS ORDERED: NIFEdipine XL 60 MG TAB PO SCH (16:45)
[2022-05-05] MEDS: Carvedilol 6.25 MG TAB PO SCH (17:18)
[2022-05-05] MEDS: hydrALAZINE 25 MG TAB PO SCH (20:45)
[2022-05-05] MEDS: NIFEdipine XL 60 MG TAB PO SCH (20:45)
[2022-05-05] MEDS: Atorvastatin Calcium 40 MG TAB PO SCH (20:45)
[2022-05-05] MEDS: levETIRAcetam 500 MG TAB PO SCH (20:45)
[2022-05-06 07:17] LABS: Free T4 (Free Thyroxine) 1.03 ng/dL (0.70-1.48); Thyroid Stimulating Hormone 0.5099 uIU/mL (0.35-4.94)
[2022-05-06 10:07] LABS: #Eosinphils 0.1 thou/uL (0.0-0.7); #Lymphocytes 1.4 thou/uL (1.20-3.40); #Monocytes 0.6 thou/uL (0.11-0.59); %Basophils 0.1 % (0.0-1.0); %Eosinophils 1.9 % (0.0-10.0); %Lymphocytes 23.2 % (21.0-51.0); %Monocytes 9.9 % (0.0-10.0); %Neutrophils 64.9 % (42.0-75.0); Hemoglobin 12.6 g/dL (12.0-16.0); Mean Corpuscular Hemoglobin 27.4 pg (27.0-31.0); Mean Corpuscular Volume 88.5 fL (78.0-98.0); Mean Platelet Volume 7.6 fL (7.4-10.4); Platelet Count 261 thou/uL (130-400); RBC Distribution Width 12.6 % (11.5-14.5); Red Blood Cell (RBC) Count 4.59 mill/uL (4.20-5.40); White Blood Cell (WBC) Count 6.2 thou/uL (4.8-10.8)
[2022-05-06 10:26] LABS: Anion Gap 13 mmol/L (10-20); BUN (Urea Nitrogen) 16 mg/dL (9.8-20.1); Calc. Creatinine Clearance 82 mL/min (70-130); Calcium 9.6 mg/dL (7.8-10.44); Carbon Dioxide 27 mmol/L (22-29); Chloride 104 mmol/L (98-107); Estimated GFR 49; Glucose 222 mg/dL (70-105); Potassium 3.9 mmol/L (3.5-5.1); Sodium 140 mmol/L (136-145)
[2022-05-06] MEDS ORDERED: levETIRAcetam 500 MG TAB PO SCH (11:15)
[2022-05-06] MEDS: levETIRAcetam 500 MG TAB PO SCH ×2 (11:41→20:59)
[2022-05-06] MEDS: NIFEdipine XL 60 MG TAB PO SCH ×2 (11:42→21:04)
[2022-05-06] MEDS: Aspirin 81 mg Enteric Coated Tablet PO SCH (11:44)
[2022-05-06] MEDS: Furosemide 40 MG TAB PO SCH (11:44)
[2022-05-06] MEDS: Clopidogrel Bisulfate 75 MG TAB PO SCH (11:44)
[2022-05-06] MEDS: Escitalopram Oxalate 20 mg Tablet PO SCH (11:44)
[2022-05-06] MEDS: hydrALAZINE 25 MG TAB PO SCH ×3 (11:44→20:59)
[2022-05-06] MEDS: Lisinopril 10 MG TAB PO SCH (11:44)
[2022-05-06] MEDS: Enoxaparin Sodium 40 MG/0.4 ML SYRINGE SC SCH (11:45)
[2022-05-06] MEDS: Carvedilol 6.25 MG TAB PO SCH (11:47)
[2022-05-06] MEDS: Spironolactone 25 MG TAB PO SCH (11:47)
[2022-05-06] MEDS: HumaLOG 300 UNITS/3 ML VIAL SC PRN ×2 (11:56→16:31)
[2022-05-06] MEDS: Atorvastatin Calcium 40 MG TAB PO SCH (20:59)
[2022-05-06 22:44] LABS: Bacteria/HPF 2+ HPF (None Seen); Bilirubin Negative (Negative); Blood, Urine Negative (Negative); Clarity Turbid (Clear); Glucose, Urine (Dipstick) Normal (Negative); Ketone, Urine Negative (Negative); Leukocyte 500 Leu/uL (Negative); Nitrite Negative (Negative); Protein, Urine (Dipstick) Negative (Neg-Trace); RBC/HPF 0-3 HPF (0-3); Specific Gravity, Urine 1.012 (1.002-1.036); Squamous Epithelial 0-3 HPF (0-3); Urobilinogen Normal mg/dL (Less than 2); WBC/HPF 21-50 HPF (0-3)
[2022-05-06 23:11] LABS: Creatinine, Urine 104.37 mg/dL (47-110)
[2022-05-06 23:12] LABS: 24 Hr Creatinine 834.96 mg/24 hr (710-1650); Protein - 24 Hr 136 mg/24 hr (Less than 300); Protein, Urine 17 mg/dL (1-14); Urine Total Volume 800 mL (600-1600)
[2022-05-07 05:48] LABS: #Eosinphils 0.1 thou/uL (0.0-0.7); #Lymphocytes 1.8 thou/uL (1.20-3.40); #Monocytes 0.7 thou/uL (0.11-0.59); #Neutrophils 3.6 thou/uL (1.40-6.50); %Basophils 0.2 % (0.0-1.0); %Lymphocytes 29.5 % (21.0-51.0); %Monocytes 10.9 % (0.0-10.0); %Neutrophils 57.4 % (42.0-75.0); Hemoglobin 11.9 g/dL (12.0-16.0); Mean Corpuscular HGB CONC 31.9 g/dL (32.0-36.0); Mean Corpuscular Hemoglobin 28.5 pg (27.0-31.0); Mean Corpuscular Volume 89.3 fL (78.0-98.0); Mean Platelet Volume 7.8 fL (7.4-10.4); Platelet Count 241 thou/uL (130-400); RBC Distribution Width 12.5 % (11.5-14.5); Red Blood Cell (RBC) Count 4.17 mill/uL (4.20-5.40); White Blood Cell (WBC) Count 6.2 thou/uL (4.8-10.8)
[2022-05-07 06:13] LABS: Anion Gap 13 mmol/L (10-20); BUN (Urea Nitrogen) 19 mg/dL (9.8-20.1); Calc. Creatinine Clearance 83 mL/min (70-130); Calcium 9.3 mg/dL (7.8-10.44); Carbon Dioxide 27 mmol/L (22-29); Chloride 105 mmol/L (98-107); Estimated GFR 49; Glucose 133 mg/dL (70-105); Potassium 3.6 mmol/L (3.5-5.1); Sodium 141 mmol/L (136-145)
[2022-05-07] MEDS: Escitalopram Oxalate 20 mg Tablet PO SCH (08:23)
[2022-05-07] MEDS: Furosemide 40 MG TAB PO SCH (08:23)
[2022-05-07] MEDS: levETIRAcetam 500 MG TAB PO SCH (08:23)
[2022-05-07] MEDS: Enoxaparin Sodium 40 MG/0.4 ML SYRINGE SC SCH (08:23)
[2022-05-07] MEDS: Aspirin 81 mg Enteric Coated Tablet PO SCH (08:23)
[2022-05-07] MEDS: NIFEdipine XL 60 MG TAB PO SCH (08:23)
[2022-05-07] MEDS: hydrALAZINE 25 MG TAB PO SCH (08:24)
[2022-05-07] MEDS: Lisinopril 10 MG TAB PO SCH (08:24)
[2022-05-07] MEDS: Spironolactone 25 MG TAB PO SCH (08:24)
[2022-05-07] MEDS: Clopidogrel Bisulfate 75 MG TAB PO SCH (08:24)
[2022-05-07 11:51] VITALS: BP 168/91; TEMP 98
== END 2022-05-07 14:05 | disposition home or self-care (01) | DRG 77 ==
LOC: ERS 20:57 → NEURO 23:32
PROVIDERS: ADMIT Internal Medicine; ATTEND Internal Medicine
DX: I67.4 Hypertensive encephalopathy (principal); I21.A1 Myocardial infarction type 2; I13.0 Hypertensive heart and chronic kidney disease with heart failure and stage 1 through stage 4 chronic kidney disease, or unspecified chronic kidney disease; I16.1 Hypertensive emergency; I69.351 Hemiplegia and hemiparesis following cerebral infarction affecting right dominant side; I50.42 Chronic combined systolic (congestive) and diastolic (congestive) heart failure; Z20.822 Contact with and (suspected) exposure to COVID-19; E04.2 Nontoxic multinodular goiter; E78.5 Hyperlipidemia, unspecified; M81.0 Age-related osteoporosis without current pathological fracture; F31.9 Bipolar disorder, unspecified; F20.9 Schizophrenia, unspecified; G89.29 Other chronic pain; M54.50 Low back pain, unspecified; E11.22 Type 2 diabetes mellitus with diabetic chronic kidney disease; N18.30 Chronic kidney disease, stage 3 unspecified; I25.10 Atherosclerotic heart disease of native coronary artery without angina pectoris; E66.9 Obesity, unspecified; Z68.35 Body mass index [BMI] 35.0-35.9, adult; Z88.5 Allergy status to narcotic agent; Z79.899 Other long term (current) drug therapy; Z71.3 Dietary counseling and surveillance; I25.2 Old myocardial infarction; Z79.82 Long term (current) use of aspirin; Z79.02 Long term (current) use of antithrombotics/antiplatelets; Z79.4 Long term (current) use of insulin; Z95.5 Presence of coronary angioplasty implant and graft
CPT/HCPCS: 36415; 36416; 70450; 70496; 70498; 70551; 71045; 76536; 76770; 80048; 80053; 81001; 82384; 82550; 82553; 82570; 83615; 83835; 84156; 84439; 84443; 84484; 85025; 85610; 85730; 93005; 93306; 93975; 95712; 95819; 95957; 96365; 96366; 96375; 96376; J0360; J1644; J1650; J1815; Q9967; U0003; U0005

== ENCOUNTER 2022-06-08 14:47 | Observation (INO) | payer OTHER ==
[2022-06-08 15:36] LABS: #Eosinphils 0.1 thou/uL (0.0-0.7); #Lymphocytes 1.5 thou/uL (1.20-3.40); #Monocytes 0.7 thou/uL (0.11-0.59); #Neutrophils 5.4 thou/uL (1.40-6.50); %Basophils 0.6 % (0.0-1.0); %Eosinophils 1.1 % (0.0-10.0); %Lymphocytes 19.4 % (21.0-51.0); %Monocytes 8.5 % (0.0-10.0); %Neutrophils 70.5 % (42.0-75.0); Hemoglobin 11.1 g/dL (12.0-16.0); Mean Corpuscular Hemoglobin 29.3 pg (27.0-31.0); Mean Corpuscular Volume 88.8 fL (78.0-98.0); Mean Platelet Volume 7.8 fL (7.4-10.4); Platelet Count 280 thou/uL (130-400); RBC Distribution Width 12.1 % (11.5-14.5); Red Blood Cell (RBC) Count 3.78 mill/uL (4.20-5.40); White Blood Cell (WBC) Count 7.7 thou/uL (4.8-10.8)
[2022-06-08 15:53] LABS: PTT 30.2 sec (22.9-36.1); Prothrombin Time 13.3 sec (12.0-14.7)
[2022-06-08 15:55] LABS: ALT (SGPT) 13 U/L (8-55); AST (SGOT) 15 U/L (5-34); Albumin 3.8 g/dL (3.5-5.0); Alkaline Phosphatase 100 U/L (40-110); Anion Gap 11 mmol/L (10-20); BUN (Urea Nitrogen) 24 mg/dL (9.8-20.1); Bilirubin, Total 0.4 mg/dL (0.2-1.2); CK (CPK) 183 U/L (29-168); Calc. Creatinine Clearance 0 mL/min (70-130); Carbon Dioxide 23 mmol/L (22-29); Chloride 111 mmol/L (98-107); Estimated GFR 38; Globulin 3.4 g/dL (2.4-3.5); Glucose 226 mg/dL (70-105); Potassium 4.4 mmol/L (3.5-5.1); Protein, Total 7.2 g/dL (6.0-8.3); Sodium 141 mmol/L (136-145)
[2022-06-08 16:15] LABS: Bilirubin Negative (Negative); Blood, Urine Negative (Negative); Clarity Clear (Clear); Glucose, Urine (Dipstick) 50 mg/dL (Negative); Ketone, Urine Negative (Negative); Leukocyte Negative Leu/uL (Negative); Nitrite Negative (Negative); Protein, Urine (Dipstick) 20 mg/dL (Neg-Trace); Specific Gravity, Urine 1.016 (1.002-1.036); Urobilinogen Normal mg/dL (Less than 2)
[2022-06-08 19:07] LABS: Troponin I 0.129 ng/mL (< 0.028)
[2022-06-08 21:58] LABS: Troponin I 0.123 ng/mL (< 0.028)
[2022-06-08] MEDS: Atorvastatin Calcium 40 MG TAB PO SCH (22:37)
[2022-06-09 04:14] VITALS: BMI 28.9
[2022-06-09] MEDS: Aspirin 81 mg Enteric Coated Tablet PO SCH (09:15)
[2022-06-09] MEDS ORDERED: Polyethylene Glycol 3350 17 GM Packet PO PRN (12:42)
[2022-06-09 15:06] LABS: Hemoglobin A1c 7.3 % (4.0-6.0)
[2022-06-09] MEDS: Lactated Ringer's 1,000 ML IV SCH (16:00)
[2022-06-09] MEDS ORDERED: Amlodipine 5 MG TAB PO SCH (17:00)
[2022-06-09] MEDS: Atorvastatin Calcium 40 MG TAB PO SCH (20:42)
[2022-06-09] MEDS: hydrALAZINE 20 MG/ML VIAL SLOW IVP PRN (20:51)
[2022-06-09] MEDS: levETIRAcetam 500 MG TAB PO SCH (20:51)
[2022-06-09] MEDS ORDERED: Insulin Glargine 30 UNITS/0.3 ML VIAL SC SCH (21:00)
[2022-06-10] MEDS: Lactated Ringer's 1,000 ML IV SCH ×2 (00:10→04:54)
[2022-06-10] MEDS: hydrALAZINE 20 MG/ML VIAL SLOW IVP PRN (04:52)
[2022-06-10 04:56] LABS: #Eosinphils 0.1 thou/uL (0.0-0.7); #Lymphocytes 1.8 thou/uL (1.20-3.40); #Monocytes 0.5 thou/uL (0.11-0.59); #Neutrophils 2.5 thou/uL (1.40-6.50); %Basophils 0.3 % (0.0-1.0); %Eosinophils 2.1 % (0.0-10.0); %Lymphocytes 36.3 % (21.0-51.0); %Monocytes 10.7 % (0.0-10.0); %Neutrophils 50.6 % (42.0-75.0); Hemoglobin 11.6 g/dL (12.0-16.0); Mean Corpuscular HGB CONC 31.5 g/dL (32.0-36.0); Mean Corpuscular Hemoglobin 27.9 pg (27.0-31.0); Mean Corpuscular Volume 88.8 fL (78.0-98.0); Mean Platelet Volume 7.9 fL (7.4-10.4); Platelet Count 299 thou/uL (130-400); RBC Distribution Width 12.1 % (11.5-14.5); Red Blood Cell (RBC) Count 4.15 mill/uL (4.20-5.40)
[2022-06-10 05:27] LABS: Anion Gap 13 mmol/L (10-20); BUN (Urea Nitrogen) 17 mg/dL (9.8-20.1); Calc. Creatinine Clearance 82 mL/min (70-130); Calcium 9.8 mg/dL (7.8-10.44); Carbon Dioxide 25 mmol/L (22-29); Chloride 106 mmol/L (98-107); Estimated GFR 52; Glucose 110 mg/dL (70-105); Sodium 140 mmol/L (136-145)
[2022-06-10] MEDS ORDERED: Spironolactone 25 MG TAB PO SCH (09:00)
[2022-06-10] MEDS ORDERED: Escitalopram Oxalate 20 mg Tablet PO SCH (09:00)
[2022-06-10] MEDS ORDERED: Carvedilol 6.25 MG TAB PO SCH (09:00)
[2022-06-10] MEDS ORDERED: hydrALAZINE 25 MG TAB PO SCH (09:00)
[2022-06-10] MEDS ORDERED: Lisinopril 2.5 MG TAB PO SCH (09:00)
[2022-06-10] MEDS ORDERED: Furosemide 20 MG TAB PO SCH (09:00)
[2022-06-10] MEDS ORDERED: NIFEdipine XL 60 MG TAB PO SCH (09:00)
[2022-06-10] MEDS ORDERED: Ergocalciferol 1.25 MG(50,000 UNITS) CAP PO SCH (09:00)
[2022-06-10] MEDS ORDERED: LEVETIRACETAM 750 MG PO SCH (09:00)
[2022-06-10] MEDS ORDERED: Clopidogrel Bisulfate 75 MG TAB PO SCH (09:00)
[2022-06-10] MEDS: levETIRAcetam 500 MG TAB PO SCH (09:31)
[2022-06-10] MEDS: Aspirin 81 mg Enteric Coated Tablet PO SCH (09:36)
[2022-06-10 11:28] VITALS: TEMP 97.8
[2022-06-10 15:19] VITALS: BP 152/78
[2022-06-12] MEDS ORDERED: Prevnar 13-Val Conj/PF 0.5 ML SYRINGE IM ONE (09:00)
== END 2022-06-10 16:02 | disposition home or self-care (01) ==
LOC: ERS 14:47 → 2NO 16:45
PROVIDERS: ADMIT Student in an Organized Health Care Education/Training Program; ATTEND Student in an Organized Health Care Education/Training Program
DX: R53.1 Weakness (principal); R47.81 Slurred speech; R77.8 Other specified abnormalities of plasma proteins; I13.0 Hypertensive heart and chronic kidney disease with heart failure and stage 1 through stage 4 chronic kidney disease, or unspecified chronic kidney disease; E11.22 Type 2 diabetes mellitus with diabetic chronic kidney disease; N18.30 Chronic kidney disease, stage 3 unspecified; I50.42 Chronic combined systolic (congestive) and diastolic (congestive) heart failure; M19.90 Unspecified osteoarthritis, unspecified site; M81.0 Age-related osteoporosis without current pathological fracture; G89.29 Other chronic pain; M54.50 Low back pain, unspecified; I25.10 Atherosclerotic heart disease of native coronary artery without angina pectoris; I42.9 Cardiomyopathy, unspecified; E78.5 Hyperlipidemia, unspecified; G40.909 Epilepsy, unspecified, not intractable, without status epilepticus; F14.10 Cocaine abuse, uncomplicated; I25.2 Old myocardial infarction; E66.9 Obesity, unspecified; Z68.28 Body mass index [BMI] 28.0-28.9, adult; Z86.73 Personal history of transient ischemic attack (TIA), and cerebral infarction without residual deficits; Z79.02 Long term (current) use of antithrombotics/antiplatelets; Z79.4 Long term (current) use of insulin; Z79.82 Long term (current) use of aspirin; Z79.899 Other long term (current) drug therapy; Z88.5 Allergy status to narcotic agent; Z95.5 Presence of coronary angioplasty implant and graft; Z20.822 Contact with and (suspected) exposure to COVID-19
CPT/HCPCS: 36415; 36416; 70450; 70551; 71045; 80048; 80061; 81003; 82550; 82553; 83036; 83880; 84484; 85025; 85610; 85730; 87086; 93005; 94760; 95712; 95819; 95957; 96374; 96375; G0378; J0360; J1815; J7120; U0003; U0005

== ENCOUNTER 2022-10-19 13:21 | Emergency (ER) | payer OTHER ==
[2022-10-19] MEDS ORDERED: levETIRAcetam 500 MG TAB PO SCH (15:00)
[2022-10-19 15:53] LABS: #Eosinphils 0.1 thou/uL (0.0-0.7); #Lymphocytes 1.7 thou/uL (1.20-3.40); #Monocytes 0.5 thou/uL (0.11-0.59); %Basophils 0.2 % (0.0-1.0); %Eosinophils 0.7 % (0.0-10.0); %Lymphocytes 23.3 % (21.0-51.0); %Monocytes 6.6 % (0.0-10.0); %Neutrophils 69.2 % (42.0-75.0); Hemoglobin 12.2 g/dL (12.0-16.0); Mean Corpuscular HGB CONC 31.6 g/dL (32.0-36.0); Mean Corpuscular Hemoglobin 27.3 pg (27.0-31.0); Mean Corpuscular Volume 86.4 fl (78.0-98.0); Mean Platelet Volume 7.8 fL (7.4-10.4); Platelet Count 250 10x3/uL (130-400); Red Blood Cell (RBC) Count 4.48 mill/uL (4.20-5.40); White Blood Cell (WBC) Count 7.3 10x3/uL (4.8-10.8)
[2022-10-19 16:12] LABS: ALT (SGPT) 10 U/L (8-55); AST (SGOT) 13 U/L (5-34); Albumin 3.9 g/dL (3.5-5.0); Alkaline Phosphatase 101 U/L (40-110); Anion Gap 13 mmol/L (10-20); BUN (Urea Nitrogen) 17 mg/dL (9.8-20.1); Bilirubin, Total 0.4 mg/dL (0.2-1.2); Calc. Creatinine Clearance 0 mL/min (70-130); Calcium 9.5 mg/dL (7.8-10.44); Carbon Dioxide 23 mmol/L (22-29); Chloride 109 mmol/L (98-107); Estimated GFR 58; Globulin 3.9 g/dL (2.4-3.5); Glucose 141 mg/dL (70-105); Potassium 3.9 mmol/L (3.5-5.1); Protein, Total 7.8 g/dL (6.0-8.3); Sodium 141 mmol/L (136-145)
== END 2022-10-19 16:48 | disposition home or self-care (01) ==
LOC: ERS 13:21
DX: R56.9 Unspecified convulsions (principal); I10 Essential (primary) hypertension; E11.9 Type 2 diabetes mellitus without complications; E78.5 Hyperlipidemia, unspecified; Z79.899 Other long term (current) drug therapy; Z79.82 Long term (current) use of aspirin; Z79.4 Long term (current) use of insulin
CPT/HCPCS: 36415; 36416; 80053; 85025; 93005

== ENCOUNTER 2023-04-25 22:01 | Emergency (ER) | payer OTHER ==
[2023-04-25] MEDS ORDERED: levETIRAcetam 500 MG/5 ML VIAL ONE (22:09)
[2023-04-25 22:28] LABS: #Eosinphils 0.1 thou/uL (0.0-0.7); #Monocytes 0.7 thou/uL (0.11-0.59); #Neutrophils 3.7 thou/uL (1.40-6.50); %Basophils 0.5 % (0.0-1.0); %Eosinophils 1.2 % (0.0-10.0); %Lymphocytes 30.9 % (21.0-51.0); %Monocytes 10.8 % (0.0-10.0); %Neutrophils 56.3 % (42.0-75.0); Hematocrit 39.1 % (36.0-47.0); Hemoglobin 12.1 g/dL (12.0-16.0); Mean Corpuscular HGB CONC 30.9 g/dL (32.0-36.0); Mean Corpuscular Volume 87.3 fl (78.0-98.0); Mean Platelet Volume 9.9 fL (7.4-10.4); Platelet Count 298 10x3/uL (130-400); RBC Distribution Width 12.8 % (11.5-14.5); Red Blood Cell (RBC) Count 4.48 mill/uL (4.20-5.40); White Blood Cell (WBC) Count 6.6 10x3/uL (4.8-10.8)
[2023-04-25 22:57] LABS: ALT (SGPT) 15 U/L (8-55); AST (SGOT) 17 U/L (5-34); Albumin 4.1 g/dL (3.5-5.0); Alkaline Phosphatase 112 U/L (40-110); Anion Gap 13 mmol/L (10-20); BUN (Urea Nitrogen) 21 mg/dL (9.8-20.1); Bilirubin, Total 0.2 mg/dL (0.2-1.2); Calc. Creatinine Clearance 0 mL/min (70-130); Calcium 9.5 mg/dL (7.8-10.44); Carbon Dioxide 24 mmol/L (22-29); Chloride 104 mmol/L (98-107); Estimated GFR 37; Globulin 4.3 g/dL (2.4-3.5); Glucose 186 mg/dL (70-105); Potassium 4.4 mmol/L (3.5-5.1); Protein, Total 8.4 g/dL (6.0-8.3); Sodium 137 mmol/L (136-145)
== END 2023-04-25 23:32 | disposition home or self-care (01) ==
LOC: ERS 22:01
DX: G40.909 Epilepsy, unspecified, not intractable, without status epilepticus (principal); I10 Essential (primary) hypertension; E11.9 Type 2 diabetes mellitus without complications; Z79.02 Long term (current) use of antithrombotics/antiplatelets; Z79.899 Other long term (current) drug therapy; Z79.82 Long term (current) use of aspirin; Z79.4 Long term (current) use of insulin
CPT/HCPCS: 80053; 85025; 93005; 96374; J1953

== ENCOUNTER 2024-09-06 15:18 | Inpatient (IN) | payer OTHER ==
[2024-09-06 16:03] LABS: #Basophils Less than 0.03 10x3/uL (0.0-0.2); #Eosinophils Less than 0.03 10x3/uL (0.0-0.7); %Basophils 0.3 % (0.0-1.0); %Eosinophils 0.3 % (0.0-10.0); %Lymphocytes 17.5 % (21.0-51.0); %Monocytes 7.8 % (0.0-10.0); %Neutrophils 73.7 % (42.0-75.0); Hematocrit 26.4 % (36.0-47.0); Hemoglobin 8.3 g/dL (12.0-16.0); Mean Corpuscular HGB CONC 31.4 g/dL (32.0-36.0); Mean Corpuscular Hemoglobin 28.8 pg (27.0-31.0); Mean Corpuscular Volume 91.7 fL (78.0-98.0); Platelet Count 219 10x3/uL (130-400); RBC Distribution Width 13.3 % (11.5-14.5); Red Blood Cell (RBC) Count 2.88 mill/uL (4.20-5.40)
[2024-09-06 16:27] LABS: Troponin I 0.106 ng/mL (< 0.028)
[2024-09-06 16:29] LABS: INR-International Normal Ratio 1.1; Prothrombin Time 14.5 sec (12.0-14.7)
[2024-09-06 16:39] LABS: ALT (SGPT) 9 U/L (8-55); AST (SGOT) 11 U/L (5-34); Albumin 3.7 g/dL (3.5-5.0); Alkaline Phosphatase 70 U/L (40-110); Anion Gap 19 mmol/L (10-20); Bilirubin, Total 0.4 mg/dL (0.2-1.2); CK (CPK) 337 U/L (29-168); Calc. Creatinine Clearance 0 mL/min (70-130); Calcium 9.5 mg/dL (7.8-10.44); Carbon Dioxide 15 mmol/L (22-29); Chloride 110 mmol/L (98-107); Estimated GFR 6; Globulin 3.9 g/dL (2.4-3.5); Glucose 147 mg/dL (70-105); Potassium 6.2 mmol/L (3.5-5.1); Protein, Total 7.6 g/dL (6.0-8.3); Sodium 138 mmol/L (136-145)
[2024-09-06 16:41] LABS: BUN (Urea Nitrogen) 183 mg/dL (9.8-20.1)
[2024-09-06] MEDS ORDERED: Albuterol 2.5 MG (3 mL) NEB ONE (17:18)
[2024-09-06] MEDS ORDERED: Dextrose 10% in Water 250 ML ONE (17:19)
[2024-09-06] MEDS ORDERED: Insulin Regular, Human 100 UNIT/ML 10 ML VIAL ONE (17:21)
[2024-09-06] MEDS ORDERED: Sodium Bicarbonate 150 mEq in Dextrose 5% IV SCH (17:45)
[2024-09-06] MEDS: Sodium Bicarbonate 150 mEq in Dextrose 5% IV SCH (18:56)
[2024-09-06] MEDS: LOKELMA 10 GM PACKET PO SCH (18:56)
[2024-09-06] MEDS ORDERED: Ondansetron ODT 4 MG TAB PO PRN (20:53)
[2024-09-06] MEDS ORDERED: Acetaminophen 325 MG TAB PO PRN (20:53)
[2024-09-06] MEDS ORDERED: Ondansetron PF 4 MG/2 ML Vial IVP PRN (20:53)
[2024-09-06 21:54] VITALS: BMI 31.7
[2024-09-07 05:35] LABS: #Basophils Less than 0.03 10x3/uL (0.0-0.2); %Basophils 0.3 % (0.0-1.0); %Eosinophils 1.1 % (0.0-10.0); %Lymphocytes 27.2 % (21.0-51.0); %Monocytes 13.1 % (0.0-10.0); Hematocrit 25.8 % (36.0-47.0); Hemoglobin 8.1 g/dL (12.0-16.0); Mean Corpuscular HGB CONC 31.4 g/dL (32.0-36.0); Mean Corpuscular Hemoglobin 28.5 pg (27.0-31.0); Mean Corpuscular Volume 90.8 fL (78.0-98.0); Mean Platelet Volume 10.6 fL (7.4-10.4); Platelet Count 223 10x3/uL (130-400); RBC Distribution Width 13.2 % (11.5-14.5); Red Blood Cell (RBC) Count 2.84 mill/uL (4.20-5.40)
[2024-09-07 07:03] LABS: BUN (Urea Nitrogen) 169 mg/dL (9.8-20.1)
[2024-09-07 07:53] LABS: Anion Gap 22 mmol/L (10-20); Calc. Creatinine Clearance 20 mL/min (70-130); Calcium 8.9 mg/dL (7.8-10.44); Carbon Dioxide 18 mmol/L (22-29); Chloride 109 mmol/L (98-107); Estimated GFR 10; Glucose 116 mg/dL (70-105); Potassium 4.5 mmol/L (3.5-5.1); Sodium 144 mmol/L (136-145)
[2024-09-07] MEDS: hydrALAZINE 25 MG TAB PO SCH (08:42)
[2024-09-07] MEDS: NIFEdipine XL 30 MG ER.TAB PO SCH (08:42)
[2024-09-07] MEDS: levETIRAcetam 500 mg/5 ml Oral Solution PO SCH (08:43)
[2024-09-07] MEDS: Heparin 5,000 UNITS/ML VIAL SC SCH (08:43)
[2024-09-07 10:42] VITALS: BMI 31.7
[2024-09-07] MEDS: Sodium Bicarbonate 150 mEq in Dextrose 5% IV SCH (21:10)
[2024-09-07] MEDS: Divalproex Sodium 500 MG ER.TAB PO SCH (21:17)
[2024-09-07] MEDS: Atorvastatin Calcium 40 MG TAB PO SCH (21:18)
[2024-09-07] MEDS: Mirtazapine 15 MG TAB PO SCH (21:19)
[2024-09-07] MEDS: Insulin Glargine 30 UNITS/0.3 ML VIAL SC SCH (21:19)
[2024-09-08 05:04] LABS: #Basophils Less than 0.03 10x3/uL (0.0-0.2); %Basophils 0.2 % (0.0-1.0); %Eosinophils 1.4 % (0.0-10.0); %Lymphocytes 40.5 % (21.0-51.0); %Neutrophils 45.4 % (42.0-75.0); Hemoglobin 8.6 g/dL (12.0-16.0); Mean Corpuscular HGB CONC 33.1 g/dL (32.0-36.0); Mean Corpuscular Hemoglobin 28.9 pg (27.0-31.0); Mean Corpuscular Volume 87.2 fL (78.0-98.0); Mean Platelet Volume 10.1 fL (7.4-10.4); Platelet Count 217 10x3/uL (130-400); RBC Distribution Width 13.3 % (11.5-14.5); Red Blood Cell (RBC) Count 2.98 mill/uL (4.20-5.40)
[2024-09-08 05:23] LABS: Phosphorus 3.7 mg/dL (2.3-4.7)
[2024-09-08] MEDS: FLU (Fluarix Triv) TS24-25(6MOS UP)/PF 45 MCG/0.5 ML Syringe IM ONE (05:26)
[2024-09-08 05:41] LABS: BUN (Urea Nitrogen) 133 mg/dL (9.8-20.1)
[2024-09-08 05:46] LABS: Anion Gap 17 mmol/L (10-20); Calc. Creatinine Clearance 37 mL/min (70-130); Calcium 9.5 mg/dL (7.8-10.44); Carbon Dioxide 31 mmol/L (22-29); Chloride 105 mmol/L (98-107); Estimated GFR 21; Glucose 108 mg/dL (70-105); Magnesium 1.8 mg/dL (1.6-2.6); Potassium 4.3 mmol/L (3.5-5.1); Sodium 149 mmol/L (136-145)
[2024-09-08] MEDS: D5 1/4 NS 1,000 ML IV SCH (09:48)
[2024-09-09 04:14] LABS: #Basophils Less than 0.03 10x3/uL (0.0-0.2); %Basophils 0.2 % (0.0-1.0); %Eosinophils 1.9 % (0.0-10.0); %Lymphocytes 39.8 % (21.0-51.0); %Monocytes 16.3 % (0.0-10.0); %Neutrophils 41.3 % (42.0-75.0); Hematocrit 28.1 % (36.0-47.0); Hemoglobin 8.9 g/dL (12.0-16.0); Mean Corpuscular HGB CONC 31.7 g/dL (32.0-36.0); Mean Corpuscular Hemoglobin 28.4 pg (27.0-31.0); Mean Corpuscular Volume 89.8 fL (78.0-98.0); Mean Platelet Volume 10.1 fL (7.4-10.4); Platelet Count 193 10x3/uL (130-400); RBC Distribution Width 13.4 % (11.5-14.5); Red Blood Cell (RBC) Count 3.13 mill/uL (4.20-5.40)
[2024-09-09 04:30] LABS: Anion Gap 16 mmol/L (10-20); BUN (Urea Nitrogen) 107 mg/dL (9.8-20.1); Calc. Creatinine Clearance 41 mL/min (70-130); Calcium 9.7 mg/dL (7.8-10.44); Carbon Dioxide 30 mmol/L (22-29); Chloride 104 mmol/L (98-107); Estimated GFR 23; Glucose 107 mg/dL (70-105); Potassium 4.6 mmol/L (3.5-5.1); Sodium 145 mmol/L (136-145)
[2024-09-09] MEDS: Piperacillin/Tazobactam 3.375 GM in Sodium Chloride 0.9% 100 ML IVPB SCH ×2 (08:39→14:46)
[2024-09-09] MEDS ORDERED: Piperacillin/Tazobactam 2.25 GM in Sodium Chloride 0.9% 100 ML IVPB SCH ×2 (10:00→14:00)
[2024-09-10 05:51] LABS: #Basophils Less than 0.03 10x3/uL (0.0-0.2); %Basophils 0.2 % (0.0-1.0); %Eosinophils 2.7 % (0.0-10.0); %Lymphocytes 32.3 % (21.0-51.0); %Neutrophils 49.3 % (42.0-75.0); Hematocrit 27.7 % (36.0-47.0); Hemoglobin 8.7 g/dL (12.0-16.0); Mean Corpuscular HGB CONC 31.4 g/dL (32.0-36.0); Mean Corpuscular Hemoglobin 28.8 pg (27.0-31.0); Mean Corpuscular Volume 91.7 fL (78.0-98.0); Mean Platelet Volume 10.2 fL (7.4-10.4); Platelet Count 196 10x3/uL (130-400); RBC Distribution Width 13.2 % (11.5-14.5); Red Blood Cell (RBC) Count 3.02 mill/uL (4.20-5.40)
[2024-09-10 06:28] LABS: Anion Gap 15 mmol/L (10-20); BUN (Urea Nitrogen) 81 mg/dL (9.8-20.1); Calc. Creatinine Clearance 47 mL/min (70-130); Calcium 9.4 mg/dL (7.8-10.44); Carbon Dioxide 27 mmol/L (22-29); Chloride 105 mmol/L (98-107); Estimated GFR 28; Glucose 117 mg/dL (70-105); Potassium 4.8 mmol/L (3.5-5.1); Sodium 142 mmol/L (136-145)
[2024-09-11 07:50] LABS: #Basophils Less than 0.03 10x3/uL (0.0-0.2); %Basophils 0.3 % (0.0-1.0); %Eosinophils 2.5 % (0.0-10.0); %Lymphocytes 37.2 % (21.0-51.0); %Monocytes 12.2 % (0.0-10.0); %Neutrophils 47.5 % (42.0-75.0); Hematocrit 26.8 % (36.0-47.0); Hemoglobin 8.3 g/dL (12.0-16.0); Mean Corpuscular Volume 93.7 fL (78.0-98.0); Mean Platelet Volume 10.2 fL (7.4-10.4); Platelet Count 206 10x3/uL (130-400); RBC Distribution Width 13.2 % (11.5-14.5); Red Blood Cell (RBC) Count 2.86 mill/uL (4.20-5.40)
[2024-09-11 08:07] LABS: Anion Gap 12 mmol/L (10-20); BUN (Urea Nitrogen) 54 mg/dL (9.8-20.1); Calc. Creatinine Clearance 47 mL/min (70-130); Calcium 9.5 mg/dL (7.8-10.44); Carbon Dioxide 24 mmol/L (22-29); Chloride 108 mmol/L (98-107); Estimated GFR 27; Glucose 120 mg/dL (70-105); Potassium 4.9 mmol/L (3.5-5.1); Sodium 139 mmol/L (136-145)
[2024-09-11 12:41] VITALS: BP 121/71; TEMP 98.1
== END 2024-09-11 14:26 | disposition home or self-care (01) | DRG 683 ==
LOC: ERS 15:18 → 2NO 17:30
PROVIDERS: ADMIT Internal Medicine; ATTEND Family Medicine
DX: N17.9 Acute kidney failure, unspecified (principal); E87.20 Acidosis, unspecified; R78.81 Bacteremia; I5A Non-ischemic myocardial injury (non-traumatic); E87.5 Hyperkalemia; G40.909 Epilepsy, unspecified, not intractable, without status epilepticus; I12.9 Hypertensive chronic kidney disease with stage 1 through stage 4 chronic kidney disease, or unspecified chronic kidney disease; I25.10 Atherosclerotic heart disease of native coronary artery without angina pectoris; E11.22 Type 2 diabetes mellitus with diabetic chronic kidney disease; F31.9 Bipolar disorder, unspecified; N18.30 Chronic kidney disease, stage 3 unspecified; I25.2 Old myocardial infarction; Z86.73 Personal history of transient ischemic attack (TIA), and cerebral infarction without residual deficits; Z88.5 Allergy status to narcotic agent; Z95.5 Presence of coronary angioplasty implant and graft
CPT/HCPCS: 36415; 36416; 80048; 82550; 83605; 83735; 83880; 84100; 84145; 84443; 85025; 85610; 85730; 87040; 87076; 87149; 93306; 96374; 96375; J1644; J1815; J2543; J7042; J7070; J7611